=== PATIENT | male | born 1955 | race Caucasian/White ===

== ENCOUNTER 2017-10-16 03:51 | Inpatient (IN) | payer MEDICAID, OTHER ==
[~2017-10-16] VITALS: Ht 175.3 cm; Wt 67.1 kg
[2017-10-16 05:58] LABS: Basophils # (auto) 0.1 uL; Basophils % (auto) 0.7 % (0.0-2.0); Eosinophils # (auto) 0.1 uL; Eosinophils % (auto) 1.6 % (0.0-7.0); Hematocrit 44.1 % (41.0-53.0); Lymphocytes # (auto) 1.3 uL; Lymphocytes % (auto) 17.5 % (10.0-50.0); Mean Corpuscular Hemoglobin 30.7 pg (28.0-32.0); Mean Corpuscular Volume 90.3 fL (80.0-100.0); Monocytes # (auto) 0.7 uL; Monocytes % (auto) 9.2 % (0.0-12.0); Neutrophils # (auto) 5.4 uL; Nucleated Red Blood Cells % 0.1 %; Platelet Count (auto) 153 10^3/uL (140-450); Red Blood Cells 4.88 10^6/uL (4.5-5.90); Red Cell Distribution Width 13.9 % (11.8-14.3); White Blood Cell 7.6 10^3/uL (4.4-10.8)
[2017-10-16 06:51] LABS: Albumin 3.5 g/dL (3.4-5.0); BUN/Creatinine Ratio 28.9; Bilirubin, Total 0.6 mg/dL (0.2-1.0); Calcium 8.6 mg/dL (8.5-10.1); Magnesium 2.1 mg/dL (1.6-2.6); Potassium 4.2 mmol/L (3.5-5.1); Total Protein 6.9 g/dL (6.4-8.2)
[2017-10-16] MEDS ORDERED: HEPARIN SODIUM (PORCINE) 5000 UNITS/ML 1ML VIAL IV ONE (07:15)
[2017-10-16] MEDS ORDERED: NITROGLYCERIN 0.4 MG SL TAB SL ONE (07:15)
[2017-10-16] MEDS ORDERED: HEPARIN SODIUM (PORCINE) 5000 UNITS/ML 1ML VIAL ONE ×2 (07:20→07:21)
[2017-10-16] MEDS ORDERED: MORPHINE SULF INJ 2 MG/ML SYRINGE 1ML IV PRN ×2 (09:30)
[2017-10-16] MEDS ORDERED: TEMAZEPAM 15 MG CAP PO PRN (09:30)
[2017-10-16] MEDS ORDERED: NITROGLYCERIN 0.4 MG SL TAB SL PRN (09:30)
[2017-10-16] MEDS ORDERED: LORazepam 0.5 MG TAB PO PRN (09:30)
[2017-10-16] MEDS ORDERED: HYDROcodone-ACET 5/325MG TAB PO PRN (09:30)
[2017-10-16] MEDS ORDERED: ACETAMINOPHEN 500 MG TAB PO PRN (09:30)
[2017-10-16] MEDS ORDERED: PROMETHAZINE HCL 25 MG/ML 1ML IV PRN (09:30)
[2017-10-16] MEDS ORDERED: LACTULOSE 20Gm/30ML SOLN PO PRN (09:30)
[2017-10-16] MEDS ORDERED: IOHEXOL 350 MG/ML 100ML IJ ONE ×2 (09:47→11:24)
[2017-10-16] MEDS ORDERED: LIDOCAINE 2%HCL (LOCAL ANESTH.) INJ 20ML MDV ONE (09:47)
[2017-10-16 09:58] LABS: INR 1.05 (0.9-1.15); Prothrombin Time 11.4 sec (9.37-12.3)
[2017-10-16] MEDS ORDERED: ENOXAPARIN SOD 80 MG/0.8ML SYRINGE SC SCH (10:00)
[2017-10-16] MEDS ORDERED: ASPirin 81 mg TAB PO SCH (10:00)
[2017-10-16] MEDS ORDERED: NITROGLYCERIN 0.2MG/HR TOPICAL PATCH TD SCH (10:00)
[2017-10-16] MEDS ORDERED: SODIUM CHL 0.9% 0 ML ONE (10:17)
[2017-10-16] MEDS ORDERED: MIDAZOLAM HCL 1MG/1ML-2 ML VIAL ONE (10:17)
[2017-10-16] MEDS ORDERED: ANGIOMAX 250 MG VIAL IV ONE (10:17)
[2017-10-16] MEDS ORDERED: fentaNYL CITRATE 100 MCG/2 ML VL ONE (10:17)
[2017-10-16] MEDS ORDERED: DEXTROSE (50%) 50ML SYRG IV PRN (11:00)
[2017-10-16 11:16] LABS: Urine Bacteria NONE SEEN /hpf (None Seen); Urine Blood Negative /uL (Negative); Urine Mucus FEW (None Seen); Urine Specific Gravity 1.034 (1.001-1.035); Urine WBC 2 /hpf (0 - 3)
[2017-10-16 11:30] LABS: Alcohol, Urine < 3.0 mg/dL (0-5); Amphetamine Screen, Urine NEGATIVE (NEGATIVE); Barbiturate Scree,Urine NEGATIVE (NEGATIVE); Benzodiazephine Screen, Urine NEGATIVE (NEGATIVE); Cannabinoid Screen, Urine NEGATIVE (NEGATIVE); Cocaine Screen, Urine NEGATIVE (NEGATIVE); Opiate Scree,Urine NEGATIVE (NEGATIVE); Phencyclidine Screen, Urine NEGATIVE (NEGATIVE)
[2017-10-16] MEDS ORDERED: AMIODARONE HCL 200 MG TAB PO ONE (12:45)
[2017-10-16] MEDS: InsuLIN REG 1unit/0.01ml Soln (100units/ml) SC SCH ×3 (12:53→22:00)
[2017-10-16] MEDS: ACCU-CHEK COMFORT CURVE STRIP VI SCH ×3 (12:53→22:00)
[2017-10-16] MEDS ORDERED: ASPI325T4 PO (13:59)
[2017-10-16] MEDS ORDERED: ATOR10TA PO (13:59)
[2017-10-16] MEDS ORDERED: ASPirin 325 MG TAB PO ONE (14:30)
[2017-10-16] MEDS: CARVEDILOL 3.125 MG TAB PO SCH ×2 (15:37→22:32)
[2017-10-16] MEDS: FUROSEMIDE 40 MG/4 ML VIAL IV SCH (15:37)
[2017-10-16] MEDS: SODIUM CHLOR 0.9% PF (SALINE LOCK) 10ML VIAL IV SCH ×2 (15:38→22:00)
[2017-10-16] MEDS: POTASSIUM CHL 20 Meq TABLET PO SCH (15:38)
[2017-10-16 20:00] VITALS: BP 97/67
[2017-10-16 22:00] VITALS: BP 97/67
[2017-10-16] MEDS: ATORVASTATIN 20 MG TAB PO SCH (22:18)
[2017-10-16] MEDS: AMIODARONE HCL 200 MG TAB PO SCH (22:18)
[2017-10-16] MEDS: HEPARIN SODIUM (PORCINE) 5000 UNITS/ML 1ML VIAL SC SCH (22:24)
[2017-10-17 05:00] VITALS: BP 95/66
[2017-10-17] MEDS: SODIUM CHLOR 0.9% PF (SALINE LOCK) 10ML VIAL IV SCH ×3 (06:00→21:09)
[2017-10-17] MEDS: ACCU-CHEK COMFORT CURVE STRIP VI SCH ×4 (06:40→21:09)
[2017-10-17] MEDS: HEPARIN SODIUM (PORCINE) 5000 UNITS/ML 1ML VIAL SC SCH ×3 (06:40→14:34)
[2017-10-17] MEDS: InsuLIN REG 1unit/0.01ml Soln (100units/ml) SC SCH ×2 (06:41→11:30)
[2017-10-17 07:04] LABS: Cholesterol 155 mg/dL (< 200); HDL Cholesterol 38 mg/dL (40-59); LDL Cholesterol 106 mg/dL (< 100); Triglycerides 113 mg/dL (< 150)
[2017-10-17 08:07] VITALS: BP 98/68
[2017-10-17 09:00] VITALS: BP 99/74
[2017-10-17] MEDS: AMIODARONE HCL 200 MG TAB PO SCH ×2 (09:28→21:15)
[2017-10-17] MEDS: POTASSIUM CHL 20 Meq TABLET PO SCH (09:28)
[2017-10-17] MEDS: FUROSEMIDE 40 MG/4 ML VIAL IV SCH (10:00)
[2017-10-17] MEDS ORDERED: ASPirin 325 MG TAB PO SCH (10:00)
[2017-10-17] MEDS: CARVEDILOL 3.125 MG TAB PO SCH ×2 (10:00→21:18)
[2017-10-17 13:00] VITALS: BP 88/61
[2017-10-17] MEDS: HEPARIN DRIP/D5W 100UNITS/ML 250 ML IV SCH (15:54)
[2017-10-17] MEDS ORDERED: ATOR40TA52 PO (16:01)
[2017-10-17 16:04] LABS: Basophils # (auto) 0.1 uL; Basophils % (auto) 0.7 % (0.0-2.0); Eosinophils # (auto) 0.2 uL; Hematocrit 42.9 % (41.0-53.0); Hemoglobin 14.6 g/dL (13.5-17.5); Lymphocytes % (auto) 22.2 % (10.0-50.0); Mean Corpuscular Hemoglobin 30.7 pg (28.0-32.0); Mean Corpuscular Volume 90.4 fL (80.0-100.0); Monocytes % (auto) 11.3 % (0.0-12.0); Neutrophils # (auto) 5.6 uL; Neutrophils % (auto) 63.8 % (37.0-80.0); Platelet Count (auto) 148 10^3/uL (140-450); Red Blood Cells 4.75 10^6/uL (4.5-5.90); Red Cell Distribution Width 13.9 % (11.8-14.3); White Blood Cell 8.8 10^3/uL (4.4-10.8)
[2017-10-17 16:11] LABS: INR 1.04 (0.9-1.15); Partial Thromboplastin Time 28.1 sec (22.64-33.71); Prothrombin Time 11.3 sec (9.37-12.3)
[2017-10-17 17:00] VITALS: BP 93/61
[2017-10-17] MEDS: ATORVASTATIN 20 MG TAB PO SCH (21:17)
[2017-10-17 21:30] VITALS: BP 93/64
[2017-10-17 22:29] LABS: INR 1.05 (0.9-1.15); Prothrombin Time 11.4 sec (9.37-12.3)
[2017-10-18 05:00] VITALS: BP 95/63
[2017-10-18 05:40] LABS: Basophils # (auto) 0.1 uL; Basophils % (auto) 0.7 % (0.0-2.0); Eosinophils # (auto) 0.3 uL; Eosinophils % (auto) 2.8 % (0.0-7.0); Hematocrit 41.4 % (41.0-53.0); Hemoglobin 14.4 g/dL (13.5-17.5); Lymphocytes # (auto) 2.3 uL; Lymphocytes % (auto) 23.9 % (10.0-50.0); Mean Corpuscular Hgb Conc. 34.7 g/dL (32.0-36.0); Mean Corpuscular Volume 89.2 fL (80.0-100.0); Monocytes # (auto) 1.1 uL; Monocytes % (auto) 10.8 % (0.0-12.0); Neutrophils # (auto) 6.1 uL; Neutrophils % (auto) 61.8 % (37.0-80.0); Nucleated Red Blood Cells % 0.1 %; Platelet Count (auto) 138 10^3/uL (140-450); Red Blood Cells 4.64 10^6/uL (4.5-5.90); Red Cell Distribution Width 13.9 % (11.8-14.3); White Blood Cell 9.8 10^3/uL (4.4-10.8)
[2017-10-18 05:57] LABS: INR 1.05 (0.9-1.15); Partial Thromboplastin Time 43.3 sec (22.64-33.71); Prothrombin Time 11.4 sec (9.37-12.3)
[2017-10-18] MEDS: SODIUM CHLOR 0.9% PF (SALINE LOCK) 10ML VIAL IV SCH ×3 (06:00→21:39)
[2017-10-18] MEDS: ACCU-CHEK COMFORT CURVE STRIP VI SCH ×2 (06:35→11:30)
[2017-10-18 08:00] VITALS: BP 94/68
[2017-10-18] MEDS: FUROSEMIDE 40 MG/4 ML VIAL IV SCH (09:15)
[2017-10-18] MEDS: CARVEDILOL 3.125 MG TAB PO SCH ×2 (09:16→21:39)
[2017-10-18] MEDS: POTASSIUM CHL 20 Meq TABLET PO SCH (09:17)
[2017-10-18] MEDS: AMIODARONE HCL 200 MG TAB PO SCH ×2 (09:17→21:39)
[2017-10-18 11:53] LABS: INR 1.05 (0.9-1.15); Partial Thromboplastin Time 57.7 sec (22.64-33.71); Prothrombin Time 11.4 sec (9.37-12.3)
[2017-10-18 12:00] VITALS: BP 97/60
[2017-10-18] MEDS: HEPARIN DRIP/D5W 100UNITS/ML 250 ML IV SCH (15:49)
[2017-10-18 17:22] VITALS: BP 96/63
[2017-10-18 21:37] VITALS: BP 88/67
[2017-10-18] MEDS: ATORVASTATIN 20 MG TAB PO SCH (21:47)
[2017-10-18 22:00] VITALS: BP 89/65
[2017-10-19 05:00] VITALS: BP 95/61
[2017-10-19] MEDS: SODIUM CHLOR 0.9% PF (SALINE LOCK) 10ML VIAL IV SCH ×3 (06:00→22:00)
[2017-10-19 06:26] LABS: INR 1.04 (0.9-1.15); Partial Thromboplastin Time 51.5 sec (22.64-33.71); Prothrombin Time 11.3 sec (9.37-12.3)
[2017-10-19 06:34] LABS: Basophils # (auto) 0.1 uL; Basophils % (auto) 0.8 % (0.0-2.0); Eosinophils # (auto) 0.4 uL; Eosinophils % (auto) 3.8 % (0.0-7.0); Hematocrit 41.4 % (41.0-53.0); Hemoglobin 14.3 g/dL (13.5-17.5); Lymphocytes # (auto) 2.6 uL; Lymphocytes % (auto) 27.8 % (10.0-50.0); Mean Corpuscular Hgb Conc. 34.5 g/dL (32.0-36.0); Monocytes # (auto) 0.9 uL; Monocytes % (auto) 9.6 % (0.0-12.0); Neutrophils # (auto) 5.4 uL; Nucleated Red Blood Cells % 0.1 %; Platelet Count (auto) 137 10^3/uL (140-450); Red Blood Cells 4.59 10^6/uL (4.5-5.90); Red Cell Distribution Width 13.6 % (11.8-14.3); White Blood Cell 9.4 10^3/uL (4.4-10.8)
[2017-10-19 06:55] LABS: BUN/Creatinine Ratio 20.2; Calcium 9.1 mg/dL (8.5-10.1); Potassium 4.5 mmol/L (3.5-5.1)
[2017-10-19 09:00] VITALS: BP 94/67
[2017-10-19] MEDS: AMIODARONE HCL 200 MG TAB PO SCH ×2 (10:48→23:19)
[2017-10-19] MEDS: CARVEDILOL 3.125 MG TAB PO SCH ×2 (10:49→22:00)
[2017-10-19 13:00] VITALS: BP 95/65
[2017-10-19 16:58] VITALS: BP 91/66
[2017-10-19] MEDS: HEPARIN DRIP/D5W 100UNITS/ML 250 ML IV SCH (17:10)
[2017-10-19 22:00] VITALS: BP 88/64
[2017-10-19] MEDS: CHLORHEXIDINE 4% TOPICAL soln 473ML TOP SCH (22:00)
[2017-10-19] MEDS: ATORVASTATIN 20 MG TAB PO SCH (23:19)
[2017-10-20 05:00] VITALS: BP 96/63
[2017-10-20] MEDS: SODIUM CHLOR 0.9% PF (SALINE LOCK) 10ML VIAL IV SCH ×3 (06:00→22:00)
[2017-10-20 06:57] LABS: Basophils # (auto) 0.1 uL; Basophils % (auto) 0.8 % (0.0-2.0); Eosinophils # (auto) 0.4 uL; Hematocrit 40.7 % (41.0-53.0); Hemoglobin 13.6 g/dL (13.5-17.5); Lymphocytes % (auto) 22.7 % (10.0-50.0); Mean Corpuscular Hemoglobin 30.4 pg (28.0-32.0); Mean Corpuscular Hgb Conc. 33.4 g/dL (32.0-36.0); Mean Corpuscular Volume 90.9 fL (80.0-100.0); Neutrophils # (auto) 5.5 uL; Neutrophils % (auto) 61.5 % (37.0-80.0); Nucleated Red Blood Cells % 0.1 %; Platelet Count (auto) 147 10^3/uL (140-450); Red Blood Cells 4.48 10^6/uL (4.5-5.90); White Blood Cell 8.9 10^3/uL (4.4-10.8)
[2017-10-20 07:54] LABS: INR 1.03 (0.9-1.15)
[2017-10-20 08:00] VITALS: BP 89/59
[2017-10-20 08:14] VITALS: BP 89/56
[2017-10-20] MEDS: AMIODARONE HCL 200 MG TAB PO SCH (09:37)
[2017-10-20] MEDS: CARVEDILOL 3.125 MG TAB PO SCH ×2 (09:37→22:49)
[2017-10-20] MEDS: CHLORHEXIDINE 4% TOPICAL soln 473ML TOP SCH ×2 (10:07→22:00)
[2017-10-20 13:00] VITALS: BP 95/65
[2017-10-20 16:26] VITALS: BP 84/57
[2017-10-20] MEDS ORDERED: ASCORBIC ACID 500 MG TAB PO ONE (22:00)
[2017-10-20] MEDS: ATORVASTATIN 20 MG TAB PO SCH (22:48)
[2017-10-20 23:23] VITALS: BP 100/53
[2017-10-21] VITALS (11 sets, daily range): BP systolic 85–120; BP diastolic 58–85
[2017-10-21] MEDS ORDERED: CHLORHEXIDINE 4% TOPICAL soln 473ML TOP ONE (01:30)
[2017-10-21] MEDS ORDERED: CHLORHEXIDINE 0.12% ORAL rinse 473ML MT ONE (06:00)
[2017-10-21] MEDS ORDERED: ACCU-CHEK COMFORT CURVE STRIP VI ONE (06:00)
[2017-10-21] MEDS: SODIUM CHLOR 0.9% PF (SALINE LOCK) 10ML VIAL IV SCH ×3 (06:09→22:25)
[2017-10-21 07:01] LABS: Basophils # (auto) 0.1 uL; Basophils % (auto) 0.8 % (0.0-2.0); Eosinophils # (auto) 0.3 uL; Eosinophils % (auto) 3.7 % (0.0-7.0); Hemoglobin 14.6 g/dL (13.5-17.5); Lymphocytes # (auto) 1.5 uL; Lymphocytes % (auto) 18.3 % (10.0-50.0); Mean Corpuscular Hemoglobin 31.1 pg (28.0-32.0); Mean Corpuscular Hgb Conc. 34.7 g/dL (32.0-36.0); Mean Corpuscular Volume 89.8 fL (80.0-100.0); Monocytes # (auto) 0.8 uL; Monocytes % (auto) 9.7 % (0.0-12.0); Neutrophils # (auto) 5.7 uL; Neutrophils % (auto) 67.5 % (37.0-80.0); Platelet Count (auto) 144 10^3/uL (140-450); Red Blood Cells 4.68 10^6/uL (4.5-5.90); Red Cell Distribution Width 13.8 % (11.8-14.3); White Blood Cell 8.4 10^3/uL (4.4-10.8)
[2017-10-21] MEDS ORDERED: ceFAZolin 1GM 2 GM in D5W 5% 50 ML IV ONE (07:30)
[2017-10-21] MEDS ORDERED: VANCOMYCIN 1GM/250ML 250 ML IV ONE (07:30)
[2017-10-21] MEDS ORDERED: NOREPINEPHRINE 8 MG/250ML KIT 250 ML IV ONE (08:30)
[2017-10-21] MEDS ORDERED: PHENYLEPHRINE INJ 20 MG in SODIUM CHL 0.9% 250 ML IV ONE (08:30)
[2017-10-21] MEDS ORDERED: EPINEPHrine HCL 4 MG in D5W 5% 250 ML IV ONE (08:30)
[2017-10-21] MEDS ORDERED: AMINOCAPROIC ACID 5 GM in SODIUM CHL 0.9% 250 ML IV ONE (08:30)
[2017-10-21] MEDS ORDERED: InsuLIN R (HUMAN) 100 UNITS in SODIUM CHL 0.9% 99 ML IV ONE (08:30)
[2017-10-21] MEDS ORDERED: VASOPRESSIN 50 UNITS in SODIUM CHL 0.9% 247.5 ML IV ONE (08:30)
[2017-10-21] MEDS ORDERED: HEPARIN 30000 UNITS in SODIUM CHLORIDE 0.9% 1000 ML IV ONE (08:30)
[2017-10-21] MEDS ORDERED: AMINOCAPROIC ACID 10 GM in SODIUM CHL 0.9% 100 ML IV ONE (08:30)
[2017-10-21] MEDS: CARVEDILOL 3.125 MG TAB PO SCH ×2 (10:00→22:00)
[2017-10-21] MEDS: CHLORHEXIDINE 4% TOPICAL soln 473ML TOP SCH (10:00)
[2017-10-21] MEDS ORDERED: NATT100C PO (15:35)
[2017-10-21] MEDS: ATORVASTATIN 20 MG TAB PO SCH (22:25)
[2017-10-22] VITALS (46 sets, daily range): BP systolic 28–125; BP diastolic 14–77
[2017-10-22] MEDS ORDERED: CHLORHEXIDINE 4% TOPICAL soln 473ML TOP ONE (01:30)
[2017-10-22] MEDS: CHLORHEXIDINE 4% TOPICAL soln 473ML TOP SCH (03:00)
[2017-10-22 04:13] LABS: Basophils # (auto) 0.1 uL; Eosinophils # (auto) 0.3 uL; Eosinophils % (auto) 3.7 % (0.0-7.0); Hematocrit 40.3 % (41.0-53.0); Hemoglobin 13.9 g/dL (13.5-17.5); Lymphocytes % (auto) 24.5 % (10.0-50.0); Mean Corpuscular Hemoglobin 30.8 pg (28.0-32.0); Mean Corpuscular Hgb Conc. 34.3 g/dL (32.0-36.0); Mean Corpuscular Volume 89.7 fL (80.0-100.0); Monocytes # (auto) 0.9 uL; Monocytes % (auto) 10.6 % (0.0-12.0); Neutrophils # (auto) 4.9 uL; Neutrophils % (auto) 60.2 % (37.0-80.0); Nucleated Red Blood Cells % 0.2 %; Platelet Count (auto) 147 10^3/uL (140-450); Red Cell Distribution Width 13.8 % (11.8-14.3); White Blood Cell 8.1 10^3/uL (4.4-10.8)
[2017-10-22 04:30] LABS: INR 1.07 (0.9-1.15); Partial Thromboplastin Time 29.7 sec (22.64-33.71); Prothrombin Time 11.7 sec (9.37-12.3)
[2017-10-22] MEDS ORDERED: NEOMYCIN-BACITRACIN-POLYM 15GM TOP OINT TOP ONE (04:59)
[2017-10-22] MEDS ORDERED: HEPARIN 1,000 UNITS/ml 1ML VIAL ONE (05:00)
[2017-10-22] MEDS ORDERED: BACITRACIN INJ 50000 UNIT VIAL ONE (05:00)
[2017-10-22] MEDS ORDERED: PAPAVERINE HCL 60 MG/2 ML 2ML VIAL ONE (05:00)
[2017-10-22] MEDS ORDERED: ceFAZolin 1GM/50ML 50 ML IV ONE ×2 (05:06→05:15)
[2017-10-22] MEDS ORDERED: VANCOMYCIN 1GM/250ML 250 ML IV ONE (05:15)
[2017-10-22] MEDS ORDERED: PROPOFOL 100 ML IV ONE (05:24)
[2017-10-22] MEDS ORDERED: NITROGLYCERIN 50MG/250ML 250 ML IV ONE (05:24)
[2017-10-22] MEDS ORDERED: DOPamine 1600MCG/ML D5W 250 ML IV ONE (05:25)
[2017-10-22 05:39] LABS: Albumin 3.6 g/dL (3.4-5.0); BUN/Creatinine Ratio 20.5; Bilirubin, Total 0.5 mg/dL (0.2-1.0); Calcium 8.7 mg/dL (8.5-10.1); Potassium 4.5 mmol/L (3.5-5.1); Total Protein 7.3 g/dL (6.4-8.2)
[2017-10-22] MEDS ORDERED: ALBUMIN 25% 400 ML IV ONE (06:00)
[2017-10-22] MEDS ORDERED: CHLORHEXIDINE 0.12% ORAL rinse 473ML MT ONE (06:00)
[2017-10-22] MEDS ORDERED: ROCURONIUM 10MG/ML 10ML VIAL IV ONE ×2 (06:01→08:49)
[2017-10-22] MEDS ORDERED: MIDAZOLAM HCL 1MG/1ML-2 ML VIAL ONE ×2 (06:14→13:26)
[2017-10-22] MEDS ORDERED: HYDROmorphone HCL 2 MG/ML VL ONE ×2 (06:14→13:25)
[2017-10-22] MEDS ORDERED: D5W 5% IV ONE (07:00)
[2017-10-22] MEDS ORDERED: PHENYLEPHRINE INJ 20 MG in D5W 5% 250 ML IV ONE (07:00)
[2017-10-22] MEDS ORDERED: VASOPRESSIN IV ONE (07:00)
[2017-10-22] MEDS ORDERED: AMINOCAPROIC ACID 5 GM in SODIUM CHL 0.9% 250 ML IV ONE (07:00)
[2017-10-22] MEDS ORDERED: EPINEPHrine HCL 4 MG in D5W 5% 250 ML IV ONE (07:30)
[2017-10-22] MEDS ORDERED: InsuLIN R (HUMAN) 100 UNITS in SODIUM CHL 0.9% 99 ML IV ONE (07:30)
[2017-10-22] MEDS ORDERED: NOREPINEPHRINE 8 MG/250ML KIT 250 ML IV ONE ×2 (07:30→14:15)
[2017-10-22] MEDS ORDERED: HEPARIN 30000 UNITS in SODIUM CHLORIDE 0.9% 1000 ML IV ONE (07:30)
[2017-10-22] MEDS ORDERED: AMINOCAPROIC ACID 10 GM in SODIUM CHL 0.9% 100 ML IV ONE (07:30)
[2017-10-22] MEDS ORDERED: SODIUM BICARBONATE 8.4% INJ 50ML SYRINGE ONE (08:19)
[2017-10-22] MEDS ORDERED: [UNRECOGNIZED DRUG - OTHER] INJ ONE (10:50)
[2017-10-22] MEDS ORDERED: PHENYLEPHRINE HCL 10 MG/ML VL IV ONE (12:18)
[2017-10-22] MEDS ORDERED: FUROSEMIDE 20 MG/2 ML VIAL IV ONE (12:18)
[2017-10-22] MEDS ORDERED: MAGNESIUM SULF 50% 40 MEQ/10 ML VL IV ONE (12:18)
[2017-10-22] MEDS ORDERED: MANNITOL 20% SOLN 100 gm/500ml BAG IV ONE (12:18)
[2017-10-22] MEDS ORDERED: DEXAMETHASONE SODIUM PHOSP 120 MG/30ml VIAL IV ONE (12:18)
[2017-10-22] MEDS ORDERED: ADENOSINE 6 MG/2 ML INJ IV ONE (12:18)
[2017-10-22] MEDS ORDERED: LIDOCAINE HCL 100 MG/5ML (2%) SYRG INJ IV ONE (12:18)
[2017-10-22] MEDS ORDERED: POTASSIUM CHL 2MEQ/ML 20ML IV ONE (12:18)
[2017-10-22] MEDS ORDERED: AMINOCAPROIC ACID 5 GM/20 ML VL IV ONE (12:18)
[2017-10-22] MEDS ORDERED: HEPARIN SODIUM (PORCINE) 5000 UNITS/ML 1ML VIAL SC ONE (12:18)
[2017-10-22] MEDS ORDERED: CALCIUM CHLOR(10%) 100MG/ML 10ML SYRINGE IV ONE ×3 (12:18→14:03)
[2017-10-22] MEDS ORDERED: SODIUM BICARBONATE 8.4 % INJ 50ML VIAL IV ONE (12:18)
[2017-10-22] MEDS ORDERED: PROTAMINE SULFATE 250 MG/25 ML VL IV ONE (13:33)
[2017-10-22] MEDS ORDERED: MILRINONE 20 ML ONE (13:33)
[2017-10-22] MEDS ORDERED: PROPOFOL 10 MG/ML 20 ML IV ONE (13:33)
[2017-10-22] MEDS ORDERED: PROTAMINE SULFATE 10 MG/ML 5ML VIAL IV ONE ×2 (15:08→15:24)
[2017-10-22] MEDS ORDERED: phytonadione 2 ML ONE (15:32)
[2017-10-22] MEDS ORDERED: PROPOFOL 200 ML IV ONE (15:51)
[2017-10-22] MEDS ORDERED: COAGULATION FACTOR VIIA (RECOM 2 MG INJ IV ONE (16:00)
[2017-10-22 16:06] LABS: INR 1.9 (0.9-1.15); Partial Thromboplastin Time 64.6 sec (22.64-33.71); Prothrombin Time 20.8 sec (9.37-12.3)
[2017-10-22 16:14] LABS: Albumin 3.5 g/dL (3.4-5.0); BUN/Creatinine Ratio 11.9; Calcium 10.8 mg/dL (8.5-10.1); Potassium 5.1 mmol/L (3.5-5.1)
[2017-10-22 16:17] LABS: Bilirubin, Total 1.4 mg/dL (0.2-1.0); Total Protein 5.7 g/dL (6.4-8.2)
[2017-10-22 16:25] LABS: Basophils # (auto) 0 uL; Basophils % (auto) 0.2 % (0.0-2.0); Eosinophils # (auto) 0.1 uL; Eosinophils % (auto) 0.4 % (0.0-7.0); Hematocrit 26.7 % (41.0-53.0); Lymphocytes # (auto) 1.1 uL; Lymphocytes % (auto) 8.4 % (10.0-50.0); Mean Corpuscular Hemoglobin 30.5 pg (28.0-32.0); Mean Corpuscular Hgb Conc. 33.9 g/dL (32.0-36.0); Monocytes # (auto) 0.6 uL; Monocytes % (auto) 4.1 % (0.0-12.0); Neutrophils # (auto) 11.8 uL; Neutrophils % (auto) 86.9 % (37.0-80.0); Platelet Count (auto) 89 10^3/uL (140-450); Red Blood Cells 2.96 10^6/uL (4.5-5.90); Red Cell Distribution Width 13.5 % (11.8-14.3); White Blood Cell 13.6 10^3/uL (4.4-10.8)
[2017-10-22] MEDS ORDERED: INSULIN DRIP 100 UNIT/100ML 100 ML IV SCH (18:23)
[2017-10-22] MEDS ORDERED: NITROGLYCERIN 50MG/250ML 250 ML IV SCH (18:24)
[2017-10-22] MEDS ORDERED: ALBUMIN 5% 250 ML IV PRN (18:30)
[2017-10-22] MEDS ORDERED: AMIODARONE HCL 150 MG in D5W 5% 100 ML IV ONE (18:30)
[2017-10-22] MEDS ORDERED: MAGNESIUM SULFATE 1GM/100ML 100 ML IV PRN (18:30)
[2017-10-22] MEDS ORDERED: DEXTROSE (50%) 50ML SYRG IV PRN (18:30)
[2017-10-22] MEDS ORDERED: MORPHINE SULF INJ 2 MG/ML SYRINGE 1ML IV PRN (18:30)
[2017-10-22] MEDS ORDERED: ONDANSETRON HCL 4 MG/2 ML VIAL IV PRN (18:30)
[2017-10-22] MEDS ORDERED: METOCLOPRAMIDE HCL 5MG/ml INJ 2ml VIAL IV PRN (18:30)
[2017-10-22] MEDS ORDERED: SODIUM BICARBONATE 8.4% INJ 50ML SYRINGE IV PRN (18:30)
[2017-10-22] MEDS ORDERED: MORPHINE SULFATE 10 MG/ML INJ 1ML SDV IV PRN ×2 (18:30)
[2017-10-22] MEDS ORDERED: ZOLPIDEM TARTRATE 5 MG TAB PO PRN (18:30)
[2017-10-22 18:39] LABS: Hemoglobin 10.4 g/dL (13.5-17.5)
[2017-10-22 18:41] LABS: Hematocrit 29.8 % (41.0-53.0); Mean Corpuscular Hemoglobin 30.8 pg (28.0-32.0); Mean Corpuscular Hgb Conc. 34.8 g/dL (32.0-36.0); Mean Corpuscular Volume 88.5 fL (80.0-100.0); Platelet Count (auto) 54 10^3/uL (140-450); Red Blood Cells 3.37 10^6/uL (4.5-5.90); Red Cell Distribution Width 13.9 % (11.8-14.3); White Blood Cell 11.9 10^3/uL (4.4-10.8)
[2017-10-22] MEDS ORDERED: AMIODARONE HCL 900 MG in DEXTROSE 500 ML IV SCH (18:45)
[2017-10-22] MEDS ORDERED: FUROSEMIDE 20 MG/2 ML VIAL IV PRN (18:45)
[2017-10-22 18:49] LABS: Band Neutrophils % (manual) 0; Basophils % (manual) 0 (0.0-2.0); Blast Cells 0; Eosinophils % (manual) 0 (0-7); Metamyelocytes % 0; Myelocytes % 0; Promyelocytes % 0; Reactive Lymphocytes 0
[2017-10-22 18:50] LABS: INR 1.04 (0.9-1.15); Partial Thromboplastin Time 31.8 sec (22.64-33.71); Prothrombin Time 11.3 sec (9.37-12.3)
[2017-10-22 18:57] LABS: Calcium 10.8 mg/dL (8.5-10.1); Potassium 4.6 mmol/L (3.5-5.1)
[2017-10-22 19:00] LABS: BUN/Creatinine Ratio 11.3; Total Protein 5.8 g/dL (6.4-8.2)
[2017-10-22] MEDS: ACCU-CHEK COMFORT CURVE STRIP VI SCH ×6 (19:00→23:57)
[2017-10-22 19:02] LABS: Bilirubin, Total 2.1 mg/dL (0.2-1.0)
[2017-10-22 19:39] LABS: Lymphocytes % (manual) 8 (10.0-50.0); Monocytes % (manual) 11 (0-12)
[2017-10-22] MEDS ORDERED: FUROSEMIDE INJECTION 100 MG in D5W 5% 90 ML IV SCH (19:45)
[2017-10-22] MEDS: VANCOMYCIN 1GM/250ML 250 ML IV SCH (20:00)
[2017-10-22] MEDS ORDERED: ALBUMIN 25% 100 ML IV ONE ×2 (20:11→20:30)
[2017-10-22] MEDS: VASOPRESSIN 50 UNITS in D5W 5% 247.5 ML IV SCH (20:23)
[2017-10-22] MEDS: PROPOFOL 100 ML IV SCH (20:23)
[2017-10-22] MEDS: NOREPINEPHRINE 8 MG/250ML KIT 250 ML IV SCH (20:23)
[2017-10-22] MEDS: NICARDIPINE 25MG/250ML BAG KIT 250 ML IV SCH ×2 (20:24→23:24)
[2017-10-22] MEDS: MILRINONE 20MG/100ML 100 ML IV SCH (20:24)
[2017-10-22] MEDS: SODIUM CHLORIDE 0.9% 500 ML IV SCH (20:25)
[2017-10-22] MEDS: SODIUM CHLORIDE 0.9% 1,000 ML IV SCH (20:25)
[2017-10-22] MEDS ORDERED: ALBUMIN 5% 250 ML IV ONE (20:30)
[2017-10-22] MEDS ORDERED: CALCIUM GLUC 4.65meq/50ml D5AE 50 ML IV ONE (20:45)
[2017-10-22] MEDS: ceFAZolin 1GM/50ML 50 ML IV SCH (21:00)
[2017-10-22 21:21] LABS: Basophils # (auto) 0 uL; Basophils % (auto) 0.1 % (0.0-2.0); Eosinophils # (auto) 0 uL; Lymphocytes # (auto) 0.7 uL; Lymphocytes % (auto) 5.1 % (10.0-50.0); Monocytes # (auto) 1.4 uL; Neutrophils % (auto) 85.1 % (37.0-80.0); Nucleated Red Blood Cells % 0.1 %
[2017-10-22 21:22] LABS: Eosinophils % (auto) 0.1 % (0.0-7.0); Hematocrit 31.6 % (41.0-53.0); Mean Corpuscular Hemoglobin 30.9 pg (28.0-32.0); Mean Corpuscular Hgb Conc. 34.7 g/dL (32.0-36.0); Monocytes % (auto) 9.6 % (0.0-12.0); Neutrophils # (auto) 12.2 uL; Platelet Count (auto) 48 10^3/uL (140-450); Red Blood Cells 3.55 10^6/uL (4.5-5.90); Red Cell Distribution Width 14.1 % (11.8-14.3); White Blood Cell 14.4 10^3/uL (4.4-10.8)
[2017-10-22] MEDS: CALCIUM GLUC 4.65meq/50ml D5AE 50 ML IV PRN (21:32)
[2017-10-22] MEDS: CHLORHEXIDINE 0.12% ORAL rinse 473ML MT SCH (22:00)
[2017-10-22] MEDS: AMIODARONE HCL 900 MG in DEXTROSE 500 ML IV SCH (23:54)
[2017-10-23] VITALS (114 sets, daily range): BP systolic 28–133; BP diastolic 13–65
[2017-10-23] MEDS ORDERED: InsuLIN REG 1unit/0.01ml Soln (100units/ml) ONE (00:19)
[2017-10-23] MEDS: ACCU-CHEK COMFORT CURVE STRIP VI SCH ×22 (00:46→23:00)
[2017-10-23 01:26] LABS: BUN/Creatinine Ratio 11.8; Calcium 9.6 mg/dL (8.5-10.1); Potassium 4.6 mmol/L (3.5-5.1)
[2017-10-23 01:39] LABS: Lymphocytes % (auto) 4.8 % (10.0-50.0); Monocytes % (auto) 8.3 % (0.0-12.0); Neutrophils % (auto) 86.9 % (37.0-80.0); White Blood Cell 13.6 10^3/uL (4.4-10.8)
[2017-10-23 01:40] LABS: Basophils # (auto) 0 uL; Eosinophils # (auto) 0 uL; Hematocrit 28.1 % (41.0-53.0); Hemoglobin 9.6 g/dL (13.5-17.5); Lymphocytes # (auto) 0.7 uL; Mean Corpuscular Hemoglobin 30.3 pg (28.0-32.0); Mean Corpuscular Hgb Conc. 34.3 g/dL (32.0-36.0); Mean Corpuscular Volume 88.3 fL (80.0-100.0); Monocytes # (auto) 1.1 uL; Neutrophils # (auto) 11.8 uL; Platelet Count (auto) 77 10^3/uL (140-450); Red Blood Cells 3.18 10^6/uL (4.5-5.90); Red Cell Distribution Width 13.6 % (11.8-14.3)
[2017-10-23 02:06] LABS: Phosphorus 1.5 mg/dL (2.5-4.90)
[2017-10-23] MEDS: ceFAZolin 1GM/50ML 50 ML IV SCH ×3 (02:30→18:35)
[2017-10-23] MEDS: NICARDIPINE 25MG/250ML BAG KIT 250 ML IV SCH ×4 (04:24→19:24)
[2017-10-23] MEDS: SODIUM CHLORIDE 0.9% 1,000 ML IV SCH (04:24)
[2017-10-23 04:51] LABS: Basophils # (auto) 0 uL; Basophils % (auto) 0.2 % (0.0-2.0); Eosinophils # (auto) 0 uL; Hematocrit 27.7 % (41.0-53.0); Hemoglobin 9.7 g/dL (13.5-17.5); Lymphocytes # (auto) 0.6 uL; Mean Corpuscular Hemoglobin 30.7 pg (28.0-32.0); Mean Corpuscular Hgb Conc. 35.1 g/dL (32.0-36.0); Mean Corpuscular Volume 87.4 fL (80.0-100.0); Monocytes # (auto) 0.9 uL; Monocytes % (auto) 7.3 % (0.0-12.0); Neutrophils % (auto) 87.5 % (37.0-80.0); Platelet Count (auto) 67 10^3/uL (140-450); Red Blood Cells 3.17 10^6/uL (4.5-5.90); Red Cell Distribution Width 13.9 % (11.8-14.3); White Blood Cell 12.6 10^3/uL (4.4-10.8)
[2017-10-23 05:11] LABS: BUN/Creatinine Ratio 12.9; Calcium 9.2 mg/dL (8.5-10.1); Potassium 4.4 mmol/L (3.5-5.1)
[2017-10-23] MEDS: IPRATROPIUM BROM 0.5 MG/2.5ML INH SOL NEB SCH ×5 (05:53→22:27)
[2017-10-23] MEDS: ACETYLCYSTEINE 10 %(100MG/ML) SOL 4ML NEB SCH ×3 (05:53→22:27)
[2017-10-23] MEDS: VANCOMYCIN 1GM/250ML 250 ML IV SCH (08:29)
[2017-10-23] MEDS: MILRINONE 20MG/100ML 100 ML IV SCH ×2 (10:10→20:06)
[2017-10-23] MEDS: PANTOPRAZOLE 40 MG/10 ML VIAL IV SCH (10:10)
[2017-10-23] MEDS: CHLORHEXIDINE 0.12% ORAL rinse 473ML MT SCH ×2 (10:11→22:00)
[2017-10-23] MEDS: PROPOFOL 100 ML IV SCH (10:11)
[2017-10-23] MEDS: FUROSEMIDE INJECTION 100 MG in D5W 5% 90 ML IV SCH (10:37)
[2017-10-23 10:40] LABS: BUN/Creatinine Ratio 12.7; Calcium 8.7 mg/dL (8.5-10.1); Magnesium 3.1 mg/dL (1.6-2.6); Phosphorus 1.9 mg/dL (2.5-4.90); Potassium 3.9 mmol/L (3.5-5.1)
[2017-10-23] MEDS: POTASSIUM CHL 20MEQ/50ML 50 ML IV PRN (11:09)
[2017-10-23] MEDS ORDERED: ALBUMIN 25% 100 ML IV ONE ×2 (12:00)
[2017-10-23] MEDS: SOD CHL 0.45% 1,000 ML IV SCH (12:08)
[2017-10-23] MEDS ORDERED: POTASSIUM PHOSPHATE 22 MEQ in SODIUM CHL 0.9% 100 ML IV ONE (12:30)
[2017-10-23] MEDS: fentaNYL CITRATE 100 MCG/2 ML VL IV PRN ×2 (15:18→18:22)
[2017-10-23 17:02] LABS: Creatinine, Urine 74 mg/dL (30.0-125.0); Sodium Urine 17 mmol/L (40-220)
[2017-10-23] MEDS: NOREPINEPHRINE 8 MG/250ML KIT 250 ML IV SCH (17:17)
[2017-10-23] MEDS: VASOPRESSIN 50 UNITS in D5W 5% 247.5 ML IV SCH (18:24)
[2017-10-23] MEDS ORDERED: INSULIN DRIP 100 UNIT/100ML 100 ML IV SCH (18:28)
[2017-10-23] MEDS: SODIUM CHLORIDE 0.9% 500 ML IV SCH (18:28)
[2017-10-23] MEDS ORDERED: DEXTROSE (50%) 50ML SYRG IV PRN (18:30)
[2017-10-23 18:47] LABS: BUN/Creatinine Ratio 11.7; Basophils # (auto) 0 uL; Calcium 8.7 mg/dL (8.5-10.1); Eosinophils # (auto) 0 uL; Magnesium 3.1 mg/dL (1.6-2.6); Mean Corpuscular Volume 88.8 fL (80.0-100.0); Monocytes # (auto) 1.4 uL; Phosphorus 3.3 mg/dL (2.5-4.90); Potassium 4.3 mmol/L (3.5-5.1)
[2017-10-23 18:50] LABS: Basophils % (auto) 0.1 % (0.0-2.0); Lymphocytes % (auto) 5.9 % (10.0-50.0); Mean Corpuscular Hemoglobin 30.6 pg (28.0-32.0); Mean Corpuscular Hgb Conc. 34.4 g/dL (32.0-36.0); Monocytes % (auto) 8.3 % (0.0-12.0); Neutrophils # (auto) 14.7 uL; Neutrophils % (auto) 85.7 % (37.0-80.0); Nucleated Red Blood Cells % 0.1 %; Platelet Count (auto) 51 10^3/uL (140-450); Red Blood Cells 3.27 10^6/uL (4.5-5.90); Red Cell Distribution Width 14.4 % (11.8-14.3); White Blood Cell 17.1 10^3/uL (4.4-10.8)
[2017-10-23] MEDS: PROPRANOLOL HCL 1 MG/ML VIAL IV PRN (22:21)
[2017-10-24] VITALS (104 sets, daily range): BP systolic 28–167; BP diastolic 16–86
[2017-10-24] MEDS: NICARDIPINE 25MG/250ML BAG KIT 250 ML IV SCH ×6 (00:24→23:03)
[2017-10-24] MEDS: AMIODARONE HCL 900 MG in DEXTROSE 500 ML IV SCH ×2 (00:45→22:13)
[2017-10-24] MEDS: ACCU-CHEK COMFORT CURVE STRIP VI SCH ×19 (01:00→18:26)
[2017-10-24] MEDS: fentaNYL CITRATE 100 MCG/2 ML VL IV PRN ×4 (01:12→16:44)
[2017-10-24 02:10] LABS: Nucleated Red Blood Cells % 0.1 %; Platelet Count (auto) 49 10^3/uL (140-450)
[2017-10-24 02:12] LABS: Basophils # (auto) 0 uL; Basophils % (auto) 0.4 % (0.0-2.0); Eosinophils # (auto) 0 uL; Lymphocytes # (auto) 0.9 uL; Lymphocytes % (auto) 6.6 % (10.0-50.0); Mean Corpuscular Hemoglobin 30.6 pg (28.0-32.0); Mean Corpuscular Hgb Conc. 34.5 g/dL (32.0-36.0); Mean Corpuscular Volume 88.5 fL (80.0-100.0); Monocytes % (auto) 7.1 % (0.0-12.0); Neutrophils # (auto) 11.6 uL; Neutrophils % (auto) 85.9 % (37.0-80.0); Red Blood Cells 3.27 10^6/uL (4.5-5.90); Red Cell Distribution Width 14.5 % (11.8-14.3); White Blood Cell 13.4 10^3/uL (4.4-10.8)
[2017-10-24] MEDS ORDERED: PHENYTOIN SODIUM 50 MG/ML 5ML INJ VIAL IV ONE (02:24)
[2017-10-24 02:37] LABS: Calcium 8.4 mg/dL (8.5-10.1); Potassium 4.2 mmol/L (3.5-5.1)
[2017-10-24 02:39] LABS: BUN/Creatinine Ratio 11.3
[2017-10-24 02:42] LABS: Total Protein 6.1 g/dL (6.4-8.2)
[2017-10-24] MEDS: ceFAZolin 1GM/50ML 50 ML IV SCH ×2 (02:45→10:21)
[2017-10-24] MEDS: SOD CHL 0.45% 1,000 ML IV SCH ×3 (02:47→18:00)
[2017-10-24] MEDS: PROPOFOL 100 ML IV SCH ×4 (02:57→17:25)
[2017-10-24] MEDS: MILRINONE 20MG/100ML 100 ML IV SCH ×2 (02:58→21:44)
[2017-10-24] MEDS: IPRATROPIUM BROM 0.5 MG/2.5ML INH SOL NEB SCH ×6 (02:59→22:02)
[2017-10-24] MEDS: ACETAMINOPHEN 325 MG TAB PO PRN ×2 (03:04→16:44)
[2017-10-24] MEDS: PROPRANOLOL HCL 1 MG/ML VIAL IV PRN (05:08)
[2017-10-24] MEDS: ACETYLCYSTEINE 10 %(100MG/ML) SOL 4ML NEB SCH ×3 (05:49→22:02)
[2017-10-24] MEDS: DOPamine 1600MCG/ML D5W 250 ML IV SCH (09:26)
[2017-10-24] MEDS: CHLORHEXIDINE 0.12% ORAL rinse 473ML MT SCH ×2 (10:11→21:38)
[2017-10-24] MEDS: PANTOPRAZOLE 40 MG/10 ML VIAL IV SCH (10:12)
[2017-10-24 10:23] LABS: Eosinophils # (auto) 0 uL; Hemoglobin 9.6 g/dL (13.5-17.5); Lymphocytes # (auto) 0.6 uL; Red Cell Distribution Width 14.4 % (11.8-14.3)
[2017-10-24 10:26] LABS: Basophils # (auto) 0 uL; Basophils % (auto) 0.2 % (0.0-2.0); Lymphocytes % (auto) 4.5 % (10.0-50.0); Mean Corpuscular Hemoglobin 30.7 pg (28.0-32.0); Mean Corpuscular Hgb Conc. 34.4 g/dL (32.0-36.0); Mean Corpuscular Volume 89.2 fL (80.0-100.0); Monocytes # (auto) 0.9 uL; Monocytes % (auto) 6.3 % (0.0-12.0); Neutrophils # (auto) 12.5 uL; Nucleated Red Blood Cells % 0.2 %; Platelet Count (auto) 43 10^3/uL (140-450); Red Blood Cells 3.14 10^6/uL (4.5-5.90)
[2017-10-24 10:57] LABS: Albumin 3.7 g/dL (3.4-5.0); BUN/Creatinine Ratio 13.8; Bilirubin, Total 1.1 mg/dL (0.2-1.0); Calcium 8.1 mg/dL (8.5-10.1); Magnesium 2.6 mg/dL (1.6-2.6); Potassium 4.3 mmol/L (3.5-5.1); Total Protein 5.8 g/dL (6.4-8.2)
[2017-10-24] MEDS: FUROSEMIDE INJECTION 100 MG in D5W 5% 90 ML IV SCH (11:21)
[2017-10-24] MEDS ORDERED: CALCIUM GLUC 4.65meq/50ml D5AE 50 ML IV ONE (11:30)
[2017-10-24 16:42] LABS: BUN/Creatinine Ratio 15.3; Potassium 3.9 mmol/L (3.5-5.1)
[2017-10-24] MEDS: CALCIUM GLUC 4.65meq/50ml D5AE 50 ML IV PRN (17:03)
[2017-10-24] MEDS: POTASSIUM CHL 20MEQ/50ML 50 ML IV PRN (17:24)
[2017-10-24] MEDS: SODIUM CHLORIDE 0.9% 500 ML IV SCH ×2 (18:24→20:15)
[2017-10-24] MEDS: NOREPINEPHRINE 8 MG/250ML KIT 250 ML IV SCH (18:24)
[2017-10-24] MEDS: VASOPRESSIN 50 UNITS in D5W 5% 247.5 ML IV SCH (18:24)
[2017-10-24] MEDS ORDERED: ALBUMIN 25% 100 ML IV ONE ×2 (18:30→18:45)
[2017-10-24 19:06] LABS: Basophils # (auto) 0 uL; Basophils % (auto) 0.1 % (0.0-2.0); Eosinophils # (auto) 0 uL; Lymphocytes # (auto) 0.8 uL; Mean Corpuscular Hemoglobin 31.2 pg (28.0-32.0); Monocytes # (auto) 0.7 uL; Neutrophils # (auto) 9.8 uL; Nucleated Red Blood Cells % 0.1 %; Red Blood Cells 2.87 10^6/uL (4.5-5.90)
[2017-10-24 19:08] LABS: Hematocrit 25.8 % (41.0-53.0); Hemoglobin 8.9 g/dL (13.5-17.5); Mean Corpuscular Hgb Conc. 34.7 g/dL (32.0-36.0); Mean Corpuscular Volume 90.1 fL (80.0-100.0); Monocytes % (auto) 5.9 % (0.0-12.0); Platelet Count (auto) 34 10^3/uL (140-450); Red Cell Distribution Width 14.1 % (11.8-14.3); White Blood Cell 11.3 10^3/uL (4.4-10.8)
[2017-10-24] MEDS ORDERED: SODIUM CHL 0.9% IV ONE (20:15)
[2017-10-24] MEDS ORDERED: DESMOPRESSIN IV ONE (20:15)
[2017-10-24] MEDS: FAMOTIDINE (10MG/ML) 2ML VL IV SCH (21:37)
[2017-10-24 23:40] LABS: Albumin 3.5 g/dL (3.4-5.0); Magnesium 2.8 mg/dL (1.6-2.6); Potassium 3.8 mmol/L (3.5-5.1)
[2017-10-24 23:43] LABS: Total Protein 5.6 g/dL (6.4-8.2)
[2017-10-25] VITALS (104 sets, daily range): BP systolic 27–170; BP diastolic 12–146
[2017-10-25] MEDS ORDERED: POTASSIUM CHL 20MEQ/50ML 100 ML IV ONE (00:23)
[2017-10-25] MEDS: POTASSIUM CHL 20MEQ/50ML 50 ML IV SCH ×5 (00:33→22:35)
[2017-10-25] MEDS: fentaNYL CITRATE 100 MCG/2 ML VL IV PRN ×5 (00:42→23:16)
[2017-10-25] MEDS: SODIUM CHLORIDE 0.9% 500 ML IV SCH ×4 (01:15→14:25)
[2017-10-25] MEDS: IPRATROPIUM BROM 0.5 MG/2.5ML INH SOL NEB SCH ×6 (02:04→22:18)
[2017-10-25] MEDS: PROPOFOL 100 ML IV SCH ×2 (02:30→23:16)
[2017-10-25] MEDS: ACETAMINOPHEN 325 MG TAB PO PRN ×4 (02:30→23:16)
[2017-10-25] MEDS: NICARDIPINE 25MG/250ML BAG KIT 250 ML IV SCH ×4 (04:41→19:14)
[2017-10-25 04:52] LABS: Basophils # (auto) 0 uL; Basophils % (auto) 0.3 % (0.0-2.0); Eosinophils # (auto) 0 uL; Lymphocytes # (auto) 0.7 uL; Red Blood Cells 3.08 10^6/uL (4.5-5.90)
[2017-10-25 04:54] LABS: Hematocrit 27.7 % (41.0-53.0); Hemoglobin 9.4 g/dL (13.5-17.5); Lymphocytes % (auto) 7.2 % (10.0-50.0); Mean Corpuscular Hemoglobin 30.6 pg (28.0-32.0); Mean Corpuscular Hgb Conc. 34.1 g/dL (32.0-36.0); Mean Corpuscular Volume 89.9 fL (80.0-100.0); Monocytes # (auto) 0.5 uL; Neutrophils # (auto) 8.2 uL; Neutrophils % (auto) 87.5 % (37.0-80.0); Nucleated Red Blood Cells % 0.1 %; Platelet Count (auto) 62 10^3/uL (140-450); Red Cell Distribution Width 14.1 % (11.8-14.3); White Blood Cell 9.3 10^3/uL (4.4-10.8)
[2017-10-25] MEDS ORDERED: ALBUMIN 25% 100 ML IV ONE (05:00)
[2017-10-25 05:10] LABS: Albumin 3.4 g/dL (3.4-5.0); BUN/Creatinine Ratio 19.4; Calcium 7.8 mg/dL (8.5-10.1); Magnesium 2.7 mg/dL (1.6-2.6); Potassium 4.2 mmol/L (3.5-5.1)
[2017-10-25 05:18] LABS: Bilirubin, Total 1.2 mg/dL (0.2-1.0); Total Protein 5.7 g/dL (6.4-8.2)
[2017-10-25] MEDS: ACETYLCYSTEINE 10 %(100MG/ML) SOL 4ML NEB SCH ×3 (06:06→22:18)
[2017-10-25] MEDS ORDERED: SODIUM CHLORIDE 0.9% 1,000 ML IV SCH (08:15)
[2017-10-25] MEDS: MORPHINE SULF INJ 2 MG/ML SYRINGE 1ML IV PRN (08:15)
[2017-10-25] MEDS ORDERED: FUROSEMIDE INJECTION 100 MG in D5W 5% 90 ML IV SCH (08:15)
[2017-10-25 10:30] LABS: Basophils # (auto) 0 uL; Basophils % (auto) 0.2 % (0.0-2.0); Eosinophils # (auto) 0 uL; Hematocrit 31.1 % (41.0-53.0); Hemoglobin 10.5 g/dL (13.5-17.5); Lymphocytes # (auto) 0.5 uL; Lymphocytes % (auto) 5.8 % (10.0-50.0); Mean Corpuscular Hemoglobin 30.4 pg (28.0-32.0); Mean Corpuscular Hgb Conc. 33.8 g/dL (32.0-36.0); Monocytes # (auto) 0.4 uL; Monocytes % (auto) 4.5 % (0.0-12.0); Neutrophils # (auto) 7.9 uL; Neutrophils % (auto) 89.5 % (37.0-80.0); Nucleated Red Blood Cells % 0.2 %; Platelet Count (auto) 59 10^3/uL (140-450); Red Blood Cells 3.46 10^6/uL (4.5-5.90); Red Cell Distribution Width 14.3 % (11.8-14.3); White Blood Cell 8.8 10^3/uL (4.4-10.8)
[2017-10-25] MEDS: MILRINONE 20MG/100ML 100 ML IV SCH (10:34)
[2017-10-25 10:40] LABS: Albumin 3.6 g/dL (3.4-5.0); Bilirubin, Total 1.4 mg/dL (0.2-1.0); Calcium 7.9 mg/dL (8.5-10.1); Potassium 3.9 mmol/L (3.5-5.1); Total Protein 5.8 g/dL (6.4-8.2)
[2017-10-25] MEDS: CHLORHEXIDINE 0.12% ORAL rinse 473ML MT SCH ×2 (10:51→21:40)
[2017-10-25] MEDS: FAMOTIDINE (10MG/ML) 2ML VL IV SCH ×2 (11:21→21:40)
[2017-10-25] MEDS ORDERED: CALCIUM GLUC 4.65meq/50ml D5AE 50 ML IV ONE (11:30)
[2017-10-25] MEDS: SODIUM CHLORIDE 0.9% 1,000 ML IV SCH (14:24)
[2017-10-25 16:16] LABS: Basophils # (auto) 0 uL; Basophils % (auto) 0.1 % (0.0-2.0); Eosinophils # (auto) 0 uL; Eosinophils % (auto) 0.3 % (0.0-7.0); Hematocrit 29.8 % (41.0-53.0); Hemoglobin 10.3 g/dL (13.5-17.5); Lymphocytes # (auto) 0.4 uL; Lymphocytes % (auto) 5.2 % (10.0-50.0); Mean Corpuscular Hemoglobin 31.3 pg (28.0-32.0); Mean Corpuscular Hgb Conc. 34.6 g/dL (32.0-36.0); Mean Corpuscular Volume 90.6 fL (80.0-100.0); Monocytes # (auto) 0.4 uL; Monocytes % (auto) 4.2 % (0.0-12.0); Neutrophils # (auto) 7.7 uL; Neutrophils % (auto) 90.2 % (37.0-80.0); Nucleated Red Blood Cells % 0.1 %; Platelet Count (auto) 48 10^3/uL (140-450); Red Blood Cells 3.29 10^6/uL (4.5-5.90); Red Cell Distribution Width 14.2 % (11.8-14.3); White Blood Cell 8.5 10^3/uL (4.4-10.8)
[2017-10-25] MEDS ORDERED: ALBUMIN 25% 50 ML IV ONE ×2 (16:28→16:45)
[2017-10-25] MEDS ORDERED: BUMETANIDE (0.25MG/ML) 4 ML VIAL IV ONE (16:45)
[2017-10-25 16:49] LABS: BUN/Creatinine Ratio 23.7; Calcium 8.1 mg/dL (8.5-10.1); Potassium 4.3 mmol/L (3.5-5.1)
[2017-10-25] MEDS: NOREPINEPHRINE 8 MG/250ML KIT 250 ML IV SCH (18:24)
[2017-10-25] MEDS: DOPamine 1600MCG/ML D5W 250 ML IV SCH (19:14)
[2017-10-25] MEDS ORDERED: DESMOPRESSIN INJECTION 20 MCG in SODIUM CHL 0.9% 50 ML IV ONE (22:00)
[2017-10-25] MEDS ORDERED: POTASSIUM CHL 20MEQ/50ML 150 ML IV ONE (22:16)
[2017-10-25] MEDS ORDERED: POTASSIUM CHL 20MEQ/50ML 50 ML IV ONE (22:25)
[2017-10-26] VITALS (107 sets, daily range): BP systolic 20–162; BP diastolic 0–123
[2017-10-26] MEDS: ALBUMIN 25% 50 ML IV SCH ×4 (00:06→22:02)
[2017-10-26] MEDS: POTASSIUM CHL 20MEQ/50ML 50 ML IV SCH ×6 (00:37→20:04)
[2017-10-26] MEDS: AMIODARONE HCL 900 MG in DEXTROSE 500 ML IV SCH (00:37)
[2017-10-26] MEDS: BUMETANIDE (0.25MG/ML) 4 ML VIAL IV PRN ×2 (01:07→10:05)
[2017-10-26] MEDS: IPRATROPIUM BROM 0.5 MG/2.5ML INH SOL NEB SCH ×6 (02:14→22:23)
[2017-10-26] MEDS: NICARDIPINE 25MG/250ML BAG KIT 250 ML IV SCH ×5 (02:24→22:24)
[2017-10-26] MEDS: ACETAMINOPHEN 325 MG TAB PO PRN ×2 (05:26→15:23)
[2017-10-26] MEDS: ACETYLCYSTEINE 10 %(100MG/ML) SOL 4ML NEB SCH ×3 (05:58→22:23)
[2017-10-26] MEDS: DOPamine 1600MCG/ML D5W 250 ML IV SCH (06:28)
[2017-10-26 06:29] LABS: Basophils # (auto) 0 uL; Basophils % (auto) 0.2 % (0.0-2.0); Eosinophils # (auto) 0 uL; Hemoglobin 10.7 g/dL (13.5-17.5); Lymphocytes # (auto) 0.5 uL; Lymphocytes % (auto) 4.9 % (10.0-50.0); Monocytes # (auto) 0.6 uL; Nucleated Red Blood Cells % 0.1 %
[2017-10-26 06:32] LABS: Eosinophils % (auto) 0.2 % (0.0-7.0); Hematocrit 31.1 % (41.0-53.0); Mean Corpuscular Hemoglobin 31.1 pg (28.0-32.0); Mean Corpuscular Hgb Conc. 34.3 g/dL (32.0-36.0); Mean Corpuscular Volume 90.7 fL (80.0-100.0); Monocytes % (auto) 6.3 % (0.0-12.0); Neutrophils # (auto) 8.7 uL; Neutrophils % (auto) 88.4 % (37.0-80.0); Platelet Count (auto) 52 10^3/uL (140-450); Red Blood Cells 3.43 10^6/uL (4.5-5.90); Red Cell Distribution Width 14.5 % (11.8-14.3); White Blood Cell 9.8 10^3/uL (4.4-10.8)
[2017-10-26 06:58] LABS: Albumin 3.6 g/dL (3.4-5.0); BUN/Creatinine Ratio 26.8; Bilirubin, Total 2.2 mg/dL (0.2-1.0); Calcium 8.4 mg/dL (8.5-10.1); Magnesium 2.9 mg/dL (1.6-2.6); Potassium 4.6 mmol/L (3.5-5.1); Total Protein 6.2 g/dL (6.4-8.2)
[2017-10-26] MEDS: MORPHINE SULF INJ 2 MG/ML SYRINGE 1ML IV PRN ×3 (08:44→21:30)
[2017-10-26] MEDS: FAMOTIDINE (10MG/ML) 2ML VL IV SCH ×2 (10:05→22:02)
[2017-10-26] MEDS: CHLORHEXIDINE 0.12% ORAL rinse 473ML MT SCH ×2 (10:06→22:02)
[2017-10-26 11:27] LABS: Potassium 3.8 mmol/L (3.5-5.1)
[2017-10-26 11:43] LABS: Basophils # (auto) 0 uL; Eosinophils # (auto) 0 uL; Monocytes # (auto) 0.5 uL; Monocytes % (auto) 4.9 % (0.0-12.0)
[2017-10-26 11:44] LABS: Basophils % (auto) 0.1 % (0.0-2.0); Eosinophils % (auto) 0.4 % (0.0-7.0); Lymphocytes # (auto) 0.5 uL; Lymphocytes % (auto) 4.8 % (10.0-50.0); Mean Corpuscular Hemoglobin 31.1 pg (28.0-32.0); Mean Corpuscular Hgb Conc. 34.2 g/dL (32.0-36.0); Neutrophils # (auto) 9.3 uL; Neutrophils % (auto) 89.8 % (37.0-80.0); Nucleated Red Blood Cells % 0.1 %; Platelet Count (auto) 54 10^3/uL (140-450); Red Blood Cells 3.52 10^6/uL (4.5-5.90); Red Cell Distribution Width 14.3 % (11.8-14.3); White Blood Cell 10.3 10^3/uL (4.4-10.8)
[2017-10-26 11:50] LABS: INR 1.05 (0.9-1.15); Partial Thromboplastin Time 36.2 sec (22.64-33.71); Prothrombin Time 11.4 sec (9.37-12.3)
[2017-10-26] MEDS: SODIUM CHLORIDE 0.9% 500 ML IV SCH (13:00)
[2017-10-26] MEDS ORDERED: METOPROLOL TARTRATE 1MG/1ML-5ML VIAL IV ONE (13:44)
[2017-10-26] MEDS ORDERED: ACETAMINOPHEN 650 mg PER 20 mL UD ONE (15:03)
[2017-10-26] MEDS ORDERED: POTASSIUM CHLORIDE 80 MEQ, LIDOCAINE 1% (LOCAL ANESTH.) 6 ML in SODIUM CHL 0.9% 500 ML IV ONE (15:30)
[2017-10-26] MEDS: SODIUM CHLORIDE 0.9% 1,000 ML IV SCH (16:00)
[2017-10-26] MEDS ORDERED: INSULIN DRIP 100 UNIT/100ML 100 ML IV SCH (17:17)
[2017-10-26] MEDS ORDERED: DEXTROSE (50%) 50ML SYRG IV PRN (17:30)
[2017-10-26] MEDS: PROPOFOL 100 ML IV SCH ×2 (17:38→23:48)
[2017-10-26] MEDS ORDERED: METOPROLOL TARTRATE 1MG/1ML-5ML VIAL IV SCH (18:00)
[2017-10-26] MEDS: ACCU-CHEK COMFORT CURVE STRIP VI SCH ×7 (18:00→23:49)
[2017-10-26] MEDS: NOREPINEPHRINE 8 MG/250ML KIT 250 ML IV SCH (18:24)
[2017-10-26] MEDS ORDERED: ALBUMIN 25% 100 ML IV ONE ×2 (18:27→18:30)
[2017-10-26] MEDS ORDERED: NITROGLYCERIN 50MG/250ML 250 ML IV SCH (18:30)
[2017-10-26] MEDS: SOD CHL 0.45% 1,000 ML IV SCH (18:30)
[2017-10-27] VITALS (103 sets, daily range): BP systolic 17–164; BP diastolic 5–98
[2017-10-27] MEDS: AMIODARONE HCL 900 MG in DEXTROSE 500 ML IV SCH (00:45)
[2017-10-27] MEDS: ACCU-CHEK COMFORT CURVE STRIP VI SCH ×15 (01:17→18:09)
[2017-10-27] MEDS: MORPHINE SULF INJ 2 MG/ML SYRINGE 1ML IV PRN ×3 (01:32→14:51)
[2017-10-27] MEDS: IPRATROPIUM BROM 0.5 MG/2.5ML INH SOL NEB SCH ×6 (02:20→22:23)
[2017-10-27] MEDS: NICARDIPINE 25MG/250ML BAG KIT 250 ML IV SCH ×5 (03:24→23:24)
[2017-10-27 03:55] LABS: Basophils # (auto) 0 uL; Basophils % (auto) 0.1 % (0.0-2.0); Lymphocytes # (auto) 0.5 uL; Nucleated Red Blood Cells % 0.1 %; Red Cell Distribution Width 14.3 % (11.8-14.3)
[2017-10-27 03:56] LABS: Eosinophils # (auto) 0.2 uL; Eosinophils % (auto) 1.6 % (0.0-7.0); Hematocrit 29.2 % (41.0-53.0); Hemoglobin 10.1 g/dL (13.5-17.5); Lymphocytes % (auto) 5.3 % (10.0-50.0); Mean Corpuscular Hemoglobin 31.3 pg (28.0-32.0); Mean Corpuscular Hgb Conc. 34.4 g/dL (32.0-36.0); Mean Corpuscular Volume 90.9 fL (80.0-100.0); Monocytes # (auto) 0.7 uL; Neutrophils # (auto) 8.1 uL; Platelet Count (auto) 48 10^3/uL (140-450); Red Blood Cells 3.21 10^6/uL (4.5-5.90); White Blood Cell 9.5 10^3/uL (4.4-10.8)
[2017-10-27 04:37] LABS: Albumin 3.7 g/dL (3.4-5.0); BUN/Creatinine Ratio 34.8; Calcium 8.5 mg/dL (8.5-10.1); Potassium 3.9 mmol/L (3.5-5.1)
[2017-10-27 04:40] LABS: Bilirubin, Total 3.1 mg/dL (0.2-1.0); Total Protein 6.3 g/dL (6.4-8.2)
[2017-10-27] MEDS: ALBUMIN 25% 50 ML IV SCH (05:52)
[2017-10-27] MEDS: ACETYLCYSTEINE 10 %(100MG/ML) SOL 4ML NEB SCH ×3 (06:02→22:23)
[2017-10-27] MEDS ORDERED: POTASSIUM CHL 20MEQ/50ML 50 ML IV SCH (09:00)
[2017-10-27] MEDS: POTASSIUM CHL 20MEQ/50ML 50 ML IV SCH ×2 (09:27→10:45)
[2017-10-27] MEDS: CHLORHEXIDINE 0.12% ORAL rinse 473ML MT SCH ×2 (09:42→22:00)
[2017-10-27] MEDS: FAMOTIDINE (10MG/ML) 2ML VL IV SCH ×2 (09:55→22:00)
[2017-10-27] MEDS: fentaNYL CITRATE 100 MCG/2 ML VL IV PRN (12:29)
[2017-10-27] MEDS: SODIUM CHLORIDE 0.9% 500 ML IV SCH (13:00)
[2017-10-27] MEDS: SOD CHL 0.45% 1,000 ML IV SCH (14:30)
[2017-10-27] MEDS: ACETAMINOPHEN 650 mg PER 20 mL UD GT PRN (15:05)
[2017-10-27] MEDS ORDERED: DEXTROSE (50%) 50ML SYRG IV PRN (15:15)
[2017-10-27] MEDS ORDERED: Fibersource Hn 1 Liter GT SCH (15:15)
[2017-10-27] MEDS: DOPamine 1600MCG/ML D5W 250 ML IV SCH (17:03)
[2017-10-27] MEDS: DEXMEDETOMIDINE HCL 400 MCG in SODIUM CHL 0.9% 96 ML IV SCH (17:33)
[2017-10-27] MEDS: InsuLIN REG 1unit/0.01ml Soln (100units/ml) SC SCH (18:00)
[2017-10-27] MEDS: NOREPINEPHRINE 8 MG/250ML KIT 250 ML IV SCH (18:24)
[2017-10-27] MEDS ORDERED: LIDOCAINE 1% HCL (LOCAL ANESTH.) INJ 20ML MDV ID ONE (21:15)
[2017-10-27] MEDS: SODIUM CHLOR 0.9% PF (SALINE LOCK) 10ML VIAL IV SCH (22:00)
[2017-10-28] VITALS (106 sets, daily range): BP systolic 72–168; BP diastolic 40–116
[2017-10-28] MEDS: AMIODARONE HCL 900 MG in DEXTROSE 500 ML IV SCH (00:45)
[2017-10-28] MEDS: IPRATROPIUM BROM 0.5 MG/2.5ML INH SOL NEB SCH ×6 (02:37→22:10)
[2017-10-28 03:51] LABS: Basophils # (auto) 0 uL; Basophils % (auto) 0.2 % (0.0-2.0); Eosinophils # (auto) 0.4 uL; Eosinophils % (auto) 4.8 % (0.0-7.0); Hematocrit 33.5 % (41.0-53.0); Hemoglobin 11.3 g/dL (13.5-17.5); Lymphocytes # (auto) 0.4 uL; Lymphocytes % (auto) 4.7 % (10.0-50.0); Mean Corpuscular Hemoglobin 30.9 pg (28.0-32.0); Mean Corpuscular Hgb Conc. 33.7 g/dL (32.0-36.0); Mean Corpuscular Volume 91.8 fL (80.0-100.0); Monocytes # (auto) 0.9 uL; Monocytes % (auto) 11.1 % (0.0-12.0); Neutrophils # (auto) 6.4 uL; Neutrophils % (auto) 79.2 % (37.0-80.0); Platelet Count (auto) 70 10^3/uL (140-450); Red Blood Cells 3.65 10^6/uL (4.5-5.90); Red Cell Distribution Width 13.9 % (11.8-14.3); White Blood Cell 8.2 10^3/uL (4.4-10.8)
[2017-10-28 04:12] LABS: Calcium 8.9 mg/dL (8.5-10.1); Magnesium 2.9 mg/dL (1.6-2.6); Potassium 4.3 mmol/L (3.5-5.1)
[2017-10-28] MEDS: InsuLIN REG 1unit/0.01ml Soln (100units/ml) SC SCH ×4 (04:13→18:00)
[2017-10-28] MEDS: NICARDIPINE 25MG/250ML BAG KIT 250 ML IV SCH ×4 (04:13→19:24)
[2017-10-28] MEDS: ACCU-CHEK COMFORT CURVE STRIP VI SCH ×4 (04:13→18:00)
[2017-10-28] MEDS: DEXMEDETOMIDINE HCL 400 MCG in SODIUM CHL 0.9% 96 ML IV SCH (04:13)
[2017-10-28 04:14] LABS: BUN/Creatinine Ratio 40.9
[2017-10-28] MEDS: PROPOFOL 100 ML IV SCH ×2 (04:14→22:41)
[2017-10-28] MEDS: ACETYLCYSTEINE 10 %(100MG/ML) SOL 4ML NEB SCH ×3 (06:08→18:24)
[2017-10-28] MEDS: DOPamine 1600MCG/ML D5W 250 ML IV SCH (07:45)
[2017-10-28] MEDS: DEXMEDETOMIDINE HCL 400 MCG in D5W 5% 96 ML IV SCH ×2 (08:00→20:55)
[2017-10-28] MEDS: ACETAMINOPHEN 650 mg PER 20 mL UD GT PRN ×3 (10:05→22:42)
[2017-10-28] MEDS: CHLORHEXIDINE 0.12% ORAL rinse 473ML MT SCH ×2 (10:28→22:09)
[2017-10-28] MEDS: FAMOTIDINE (10MG/ML) 2ML VL IV SCH ×2 (10:28→22:09)
[2017-10-28] MEDS: SODIUM CHLOR 0.9% PF (SALINE LOCK) 10ML VIAL IV SCH ×2 (10:28→22:09)
[2017-10-28] MEDS ORDERED: FUROSEMIDE 40 MG/4 ML VIAL ONE (12:13)
[2017-10-28] MEDS ORDERED: FUROSEMIDE 40 MG/4 ML VIAL IV ONE (12:15)
[2017-10-28] MEDS: SODIUM CHLORIDE 0.9% 500 ML IV SCH (13:00)
[2017-10-28] MEDS ORDERED: TPN PER PHARMACY 0 ML IV SCH (17:15)
[2017-10-28] MEDS: NOREPINEPHRINE 8 MG/250ML KIT 250 ML IV SCH ×2 (18:24→23:45)
[2017-10-28] MEDS: MORPHINE SULF INJ 2 MG/ML SYRINGE 1ML IV PRN (19:25)
[2017-10-28] MEDS: AMINO ACID INFUSION IN D10W 1,000 ML IV NR (21:00)
[2017-10-29] VITALS (87 sets, daily range): BP systolic 79–155; BP diastolic 40–109
[2017-10-29] MEDS ORDERED: DEXTROSE (50%) 50ML SYRG IV SCH
[2017-10-29] MEDS: InsuLIN REG 1unit/0.01ml Soln (100units/ml) SC SCH ×4 (00:09→17:48)
[2017-10-29] MEDS: ACCU-CHEK COMFORT CURVE STRIP VI SCH ×4 (00:10→17:47)
[2017-10-29] MEDS: NICARDIPINE 25MG/250ML BAG KIT 250 ML IV SCH ×5 (00:24→20:24)
[2017-10-29] MEDS: AMIODARONE HCL 900 MG in DEXTROSE 500 ML IV SCH (00:45)
[2017-10-29] MEDS: IPRATROPIUM BROM 0.5 MG/2.5ML INH SOL NEB SCH ×6 (01:58→22:02)
[2017-10-29 04:10] LABS: Basophils # (auto) 0 uL; Basophils % (auto) 0.3 % (0.0-2.0); Eosinophils # (auto) 0.2 uL; Eosinophils % (auto) 1.4 % (0.0-7.0); Hematocrit 37.5 % (41.0-53.0); Hemoglobin 12.5 g/dL (13.5-17.5); Lymphocytes # (auto) 0.9 uL; Lymphocytes % (auto) 6.3 % (10.0-50.0); Mean Corpuscular Hemoglobin 30.3 pg (28.0-32.0); Mean Corpuscular Hgb Conc. 33.2 g/dL (32.0-36.0); Mean Corpuscular Volume 91.1 fL (80.0-100.0); Monocytes # (auto) 1.3 uL; Monocytes % (auto) 9.1 % (0.0-12.0); Neutrophils # (auto) 11.4 uL; Neutrophils % (auto) 82.9 % (37.0-80.0); Platelet Count (auto) 116 10^3/uL (140-450); Red Blood Cells 4.11 10^6/uL (4.5-5.90); Red Cell Distribution Width 13.8 % (11.8-14.3); White Blood Cell 13.8 10^3/uL (4.4-10.8)
[2017-10-29 04:40] LABS: Albumin 3.6 g/dL (3.4-5.0); BUN/Creatinine Ratio 41.9; Calcium 8.9 mg/dL (8.5-10.1); Magnesium 2.8 mg/dL (1.6-2.6); Phosphorus 2.3 mg/dL (2.5-4.90); Potassium 3.6 mmol/L (3.5-5.1); Total Protein 6.8 g/dL (6.4-8.2)
[2017-10-29] MEDS: AMINO ACID INFUSION IN D10W 1,000 ML IV NR (05:59)
[2017-10-29] MEDS: ACETYLCYSTEINE 10 %(100MG/ML) SOL 4ML NEB SCH ×3 (07:05→22:03)
[2017-10-29] MEDS: ACETAMINOPHEN 650 mg PER 20 mL UD GT PRN ×3 (07:56→22:17)
[2017-10-29] MEDS: PROPOFOL 100 ML IV SCH ×2 (07:56→15:58)
[2017-10-29] MEDS ORDERED: POTASSIUM CHL 20MEQ/50ML 100 ML IV ONE ×2 (08:14→17:28)
[2017-10-29] MEDS ORDERED: D5W 5% 1,000 ML IV ONE (08:15)
[2017-10-29] MEDS: DOPamine 1600MCG/ML D5W 250 ML IV SCH (08:49)
[2017-10-29] MEDS: POTASSIUM CHL 20MEQ/50ML 50 ML IV SCH ×4 (08:50→19:30)
[2017-10-29] MEDS: CHLORHEXIDINE 0.12% ORAL rinse 473ML MT SCH ×2 (10:18→22:00)
[2017-10-29] MEDS: SODIUM CHLOR 0.9% PF (SALINE LOCK) 10ML VIAL IV SCH ×2 (10:18→22:00)
[2017-10-29] MEDS: FAMOTIDINE (10MG/ML) 2ML VL IV SCH ×2 (10:23→22:00)
[2017-10-29] MEDS: MORPHINE SULF INJ 2 MG/ML SYRINGE 1ML IV PRN ×2 (11:51→18:01)
[2017-10-29] MEDS: SODIUM CHLORIDE 0.9% 500 ML IV SCH (13:00)
[2017-10-29] MEDS ORDERED: LINEZOLID 600MG/300ML 300 ML IV SCH ×2 (14:28→15:00)
[2017-10-29] MEDS ORDERED: ALBUMIN 25% 50 ML IV ONE (14:30)
[2017-10-29] MEDS ORDERED: LEVOFLOXACIN 500MG 100 ML IV ONE ×2 (14:30)
[2017-10-29] MEDS: fentaNYL CITRATE 100 MCG/2 ML VL IV PRN (14:34)
[2017-10-29] MEDS: LINEZOLID 600MG/300ML 300 ML IV SCH ×2 (14:45→17:09)
[2017-10-29] MEDS ORDERED: ALBUMIN 5% 50 ML IV ONE (14:45)
[2017-10-29] MEDS: fentaNYL Drip 2500mCg/250mlNS 250 ML IV SCH ×2 (14:53→16:53)
[2017-10-29] MEDS ORDERED: METOPROLOL TARTRATE 1MG/1ML-5ML VIAL IV SCH (16:00)
[2017-10-29] MEDS ORDERED: METOPROLOL TARTRATE 1MG/1ML-5ML VIAL IV ONE (16:00)
[2017-10-29 16:58] LABS: Calcium 8.6 mg/dL (8.5-10.1); Potassium 3.6 mmol/L (3.5-5.1)
[2017-10-29] MEDS: LACTULOSE 20Gm/30ML SOLN PO SCH (18:56)
[2017-10-29] MEDS ORDERED: TPN PER PHARMACY IV NR ×8 (20:00)
[2017-10-29] MEDS: METOPROLOL TARTRATE 1MG/1ML-5ML VIAL IV SCH (22:00)
[2017-10-29] MEDS: metroNIDAZOLE 500MG/100ML 100 ML IV SCH (22:00)
[2017-10-29] MEDS ORDERED: MEPERIDINE HCL (25 MG/ML) 1ML VIAL ONE (23:56)
[2017-10-30] VITALS (104 sets, daily range): BP systolic 72–153; BP diastolic 41–81
[2017-10-30] MEDS ORDERED: MEPERIDINE HCL (25 MG/ML) 1ML VIAL IV ONE
[2017-10-30] MEDS ORDERED: IBUPROFEN 100MG/5ML ORAL SUSP 100 MG/5 ML UD GT ONE (00:45)
[2017-10-30] MEDS: ACCU-CHEK COMFORT CURVE STRIP VI SCH ×6 (01:40→23:42)
[2017-10-30] MEDS: InsuLIN REG 1unit/0.01ml Soln (100units/ml) SC SCH ×6 (01:48→23:42)
[2017-10-30] MEDS: LINEZOLID 600MG/300ML 300 ML IV SCH ×2 (03:00→17:08)
[2017-10-30] MEDS: METOPROLOL TARTRATE 1MG/1ML-5ML VIAL IV SCH ×4 (04:00→21:59)
[2017-10-30 05:51] LABS: Basophils # (auto) 0 uL; Basophils % (auto) 0.1 % (0.0-2.0); Eosinophils # (auto) 0.2 uL; Eosinophils % (auto) 0.8 % (0.0-7.0); Hematocrit 35.4 % (41.0-53.0); Hemoglobin 11.7 g/dL (13.5-17.5); Lymphocytes # (auto) 0.4 uL; Lymphocytes % (auto) 1.8 % (10.0-50.0); Mean Corpuscular Hemoglobin 30.4 pg (28.0-32.0); Mean Corpuscular Hgb Conc. 33.2 g/dL (32.0-36.0); Mean Corpuscular Volume 91.6 fL (80.0-100.0); Monocytes # (auto) 0.5 uL; Monocytes % (auto) 2.1 % (0.0-12.0); Neutrophils # (auto) 22.8 uL; Neutrophils % (auto) 95.2 % (37.0-80.0); Nucleated Red Blood Cells % 0.1 %; Platelet Count (auto) 111 10^3/uL (140-450); Red Blood Cells 3.86 10^6/uL (4.5-5.90); Red Cell Distribution Width 14.3 % (11.8-14.3); White Blood Cell 23.9 10^3/uL (4.4-10.8)
[2017-10-30] MEDS: IPRATROPIUM BROM 0.5 MG/2.5ML INH SOL NEB SCH ×5 (05:56→22:12)
[2017-10-30] MEDS: ACETYLCYSTEINE 10 %(100MG/ML) SOL 4ML NEB SCH ×3 (05:56→22:12)
[2017-10-30] MEDS: LACTULOSE 20Gm/30ML SOLN PO SCH ×6 (06:00→23:42)
[2017-10-30 06:17] LABS: Albumin 3.1 g/dL (3.4-5.0); BUN/Creatinine Ratio 37.1; Bilirubin, Total 4.7 mg/dL (0.2-1.0); Magnesium 2.2 mg/dL (1.6-2.6); Potassium 3.9 mmol/L (3.5-5.1); Total Protein 6.1 g/dL (6.4-8.2)
[2017-10-30] MEDS: NICARDIPINE 25MG/250ML BAG KIT 250 ML IV SCH ×5 (06:24→21:24)
[2017-10-30] MEDS: metroNIDAZOLE 500MG/100ML 100 ML IV SCH ×3 (06:30→22:00)
[2017-10-30] MEDS: AMIODARONE HCL 900 MG in DEXTROSE 500 ML IV SCH (07:41)
[2017-10-30] MEDS: DEXMEDETOMIDINE HCL 400 MCG in D5W 5% 96 ML IV SCH (07:41)
[2017-10-30] MEDS: DOPamine 1600MCG/ML D5W 250 ML IV SCH (07:45)
[2017-10-30] MEDS ORDERED: POTASSIUM CHL 20MEQ/50ML 100 ML IV ONE (08:00)
[2017-10-30] MEDS: POTASSIUM CHL 20MEQ/50ML 50 ML IV SCH ×2 (08:15→11:03)
[2017-10-30] MEDS: SODIUM CHLOR 0.9% PF (SALINE LOCK) 10ML VIAL IV SCH ×2 (10:00→22:00)
[2017-10-30] MEDS ORDERED: LEVOFLOXACIN 500MG 100 ML IV SCH ×2 (10:00)
[2017-10-30] MEDS ORDERED: INSULIN DETEMIR(LEVEMIR) 1unit/0.01ml Soln (100units/ml) SC ONE (10:45)
[2017-10-30] MEDS: CHLORHEXIDINE 0.12% ORAL rinse 473ML MT SCH ×2 (11:03→22:00)
[2017-10-30] MEDS: PROPOFOL 100 ML IV SCH ×3 (11:04→17:14)
[2017-10-30] MEDS: fentaNYL Drip 2500mCg/250mlNS 250 ML IV SCH (11:04)
[2017-10-30] MEDS: FAMOTIDINE (10MG/ML) 2ML VL IV SCH ×2 (11:19→22:00)
[2017-10-30] MEDS ORDERED: CALCIUM GLUC 4.65meq/50ml D5AE 50 ML IV ONE (11:45)
[2017-10-30] MEDS ORDERED: ALBUMIN 25% 50 ML IV ONE (12:00)
[2017-10-30] MEDS ORDERED: DEXTROSE (50%) 50ML SYRG IV PRN (13:00)
[2017-10-30] MEDS: SODIUM CHLORIDE 0.9% 500 ML IV SCH (13:00)
[2017-10-30] MEDS ORDERED: SODIUM BICARBONATE 8.4 % INJ 50ML VIAL IV ONE (16:15)
[2017-10-30] MEDS ORDERED: SODIUM BICARBONATE 8.4% INJ 50ML SYRINGE ONE (16:23)
[2017-10-30] MEDS ORDERED: FLUCONAZOLE 200MG/100ML 100 ML IV ONE (16:45)
[2017-10-30] MEDS ORDERED: PIPERACILLIN-TAZOB 3.375GM 50 ML IV ONE (17:00)
[2017-10-30] MEDS: MORPHINE SULFATE 4 MG/ML SYR/VIAL IV PRN (17:47)
[2017-10-30] MEDS: NOREPINEPHRINE 8 MG/250ML KIT 250 ML IV SCH (18:24)
[2017-10-30] MEDS ORDERED: TPN PER PHARMACY IV NR ×9 (20:00)
[2017-10-30] MEDS: METOCLOPRAMIDE HCL 5MG/ml INJ 2ml VIAL IV SCH (22:00)
[2017-10-30] MEDS: PIPERACILLIN-TAZOB 3.375GM 50 ML IV SCH (22:00)
[2017-10-30] MEDS: INSULIN DETEMIR(LEVEMIR) 1unit/0.01ml Soln (100units/ml) SC SCH (22:09)
[2017-10-31] VITALS (103 sets, daily range): BP systolic 93–128; BP diastolic 51–76
[2017-10-31] MEDS: AMIODARONE HCL 900 MG in DEXTROSE 500 ML IV SCH (00:45)
[2017-10-31] MEDS: DOPamine 1600MCG/ML D5W 250 ML IV SCH (01:00)
[2017-10-31] MEDS: IPRATROPIUM BROM 0.5 MG/2.5ML INH SOL NEB SCH ×6 (02:15→22:15)
[2017-10-31] MEDS: ACETAMINOPHEN 650 mg PER 20 mL UD GT PRN ×3 (02:22→16:14)
[2017-10-31] MEDS: NICARDIPINE 25MG/250ML BAG KIT 250 ML IV SCH ×5 (02:24→22:24)
[2017-10-31] MEDS: LINEZOLID 600MG/300ML 300 ML IV SCH ×2 (02:56→14:29)
[2017-10-31] MEDS: ACCU-CHEK COMFORT CURVE STRIP VI SCH ×6 (03:35→23:28)
[2017-10-31] MEDS: METOPROLOL TARTRATE 1MG/1ML-5ML VIAL IV SCH ×4 (03:35→21:39)
[2017-10-31] MEDS: InsuLIN REG 1unit/0.01ml Soln (100units/ml) SC SCH ×6 (03:35→23:32)
[2017-10-31] MEDS: PROPOFOL 100 ML IV SCH ×4 (04:55→16:44)
[2017-10-31 05:20] LABS: Basophils # (auto) 0 uL; Basophils % (auto) 0.2 % (0.0-2.0); Eosinophils # (auto) 0.9 uL; Eosinophils % (auto) 4.5 % (0.0-7.0); Hematocrit 32.8 % (41.0-53.0); Hemoglobin 10.7 g/dL (13.5-17.5); Lymphocytes # (auto) 0.7 uL; Lymphocytes % (auto) 3.4 % (10.0-50.0); Mean Corpuscular Hemoglobin 30.1 pg (28.0-32.0); Mean Corpuscular Hgb Conc. 32.5 g/dL (32.0-36.0); Mean Corpuscular Volume 92.6 fL (80.0-100.0); Monocytes # (auto) 0.7 uL; Monocytes % (auto) 3.6 % (0.0-12.0); Neutrophils # (auto) 17.8 uL; Neutrophils % (auto) 88.3 % (37.0-80.0); Platelet Count (auto) 93 10^3/uL (140-450); Red Blood Cells 3.54 10^6/uL (4.5-5.90); Red Cell Distribution Width 14.9 % (11.8-14.3); White Blood Cell 20.1 10^3/uL (4.4-10.8)
[2017-10-31] MEDS: LACTULOSE 20Gm/30ML SOLN PO SCH ×4 (05:30→23:27)
[2017-10-31] MEDS: metroNIDAZOLE 500MG/100ML 100 ML IV SCH ×3 (05:30→21:41)
[2017-10-31] MEDS: PIPERACILLIN-TAZOB 3.375GM 50 ML IV SCH ×3 (05:30→21:41)
[2017-10-31] MEDS: METOCLOPRAMIDE HCL 5MG/ml INJ 2ml VIAL IV SCH ×3 (05:30→21:41)
[2017-10-31 05:52] LABS: Albumin 2.8 g/dL (3.4-5.0); BUN/Creatinine Ratio 34.5; Bilirubin, Total 3.8 mg/dL (0.2-1.0); Calcium 7.9 mg/dL (8.5-10.1); Magnesium 2.2 mg/dL (1.6-2.6); Phosphorus 2.8 mg/dL (2.5-4.90); Total Protein 5.9 g/dL (6.4-8.2)
[2017-10-31] MEDS: ACETYLCYSTEINE 10 %(100MG/ML) SOL 4ML NEB SCH ×3 (06:06→22:15)
[2017-10-31] MEDS: DEXMEDETOMIDINE HCL 400 MCG in D5W 5% 96 ML IV SCH (07:33)
[2017-10-31] MEDS: FLUCONAZOLE 200MG/100ML 100 ML IV SCH (10:23)
[2017-10-31] MEDS: SODIUM CHLOR 0.9% PF (SALINE LOCK) 10ML VIAL IV SCH ×2 (10:24→21:42)
[2017-10-31] MEDS: INSULIN DETEMIR(LEVEMIR) 1unit/0.01ml Soln (100units/ml) SC SCH ×2 (10:24→21:53)
[2017-10-31] MEDS: CHLORHEXIDINE 0.12% ORAL rinse 473ML MT SCH ×2 (10:24→21:42)
[2017-10-31] MEDS: MORPHINE SULFATE 4 MG/ML SYR/VIAL IV PRN ×3 (10:25→15:57)
[2017-10-31] MEDS: SODIUM CHLORIDE 0.9% 500 ML IV SCH (13:00)
[2017-10-31] MEDS: FAMOTIDINE (10MG/ML) 2ML VL IV SCH ×2 (13:11→21:40)
[2017-10-31] MEDS: fentaNYL Drip 2500mCg/250mlNS 250 ML IV SCH (13:11)
[2017-10-31] MEDS ORDERED: MIDAZOLAM DRIP 50 mg/50mL 50 ML IV ONE (17:47)
[2017-10-31] MEDS: MIDAZOLAM DRIP 50 mg/50mL 50 ML IV SCH (18:08)
[2017-10-31] MEDS: NOREPINEPHRINE 8 MG/250ML KIT 250 ML IV SCH (18:24)
[2017-10-31] MEDS ORDERED: TPN PER PHARMACY IV NR ×9 (20:00)
[2017-11-01] VITALS (107 sets, daily range): BP systolic 75–159; BP diastolic 34–84
[2017-11-01] MEDS: AMIODARONE HCL 900 MG in DEXTROSE 500 ML IV SCH ×2 (00:45→13:01)
[2017-11-01] MEDS: IPRATROPIUM BROM 0.5 MG/2.5ML INH SOL NEB SCH ×6 (02:20→22:10)
[2017-11-01] MEDS: LINEZOLID 600MG/300ML 300 ML IV SCH ×2 (02:33→16:50)
[2017-11-01] MEDS: NICARDIPINE 25MG/250ML BAG KIT 250 ML IV SCH ×5 (02:58→23:24)
[2017-11-01] MEDS: ACCU-CHEK COMFORT CURVE STRIP VI SCH ×6 (04:06→23:36)
[2017-11-01] MEDS: InsuLIN REG 1unit/0.01ml Soln (100units/ml) SC SCH ×6 (04:07→23:35)
[2017-11-01] MEDS: METOPROLOL TARTRATE 1MG/1ML-5ML VIAL IV SCH ×4 (04:08→22:01)
[2017-11-01] MEDS: PROPOFOL 100 ML IV SCH ×2 (04:08→15:39)
[2017-11-01 04:38] LABS: Basophils # (auto) 0 uL; Basophils % (auto) 0.2 % (0.0-2.0); Eosinophils # (auto) 0.8 uL; Eosinophils % (auto) 4.1 % (0.0-7.0); Hematocrit 31.6 % (41.0-53.0); Hemoglobin 10.1 g/dL (13.5-17.5); Lymphocytes # (auto) 0.6 uL; Lymphocytes % (auto) 2.9 % (10.0-50.0); Mean Corpuscular Hemoglobin 29.8 pg (28.0-32.0); Mean Corpuscular Volume 93.2 fL (80.0-100.0); Monocytes # (auto) 0.6 uL; Monocytes % (auto) 2.9 % (0.0-12.0); Neutrophils # (auto) 18.2 uL; Neutrophils % (auto) 89.9 % (37.0-80.0); Platelet Count (auto) 113 10^3/uL (140-450); Red Blood Cells 3.39 10^6/uL (4.5-5.90); Red Cell Distribution Width 14.8 % (11.8-14.3); White Blood Cell 20.2 10^3/uL (4.4-10.8)
[2017-11-01 04:49] LABS: Albumin 2.5 g/dL (3.4-5.0); BUN/Creatinine Ratio 30.5; Bilirubin, Total 5.2 mg/dL (0.2-1.0); Magnesium 2.3 mg/dL (1.6-2.6); Potassium 3.8 mmol/L (3.5-5.1); Total Protein 5.8 g/dL (6.4-8.2)
[2017-11-01] MEDS: PIPERACILLIN-TAZOB 3.375GM 50 ML IV SCH (05:30)
[2017-11-01] MEDS: LACTULOSE 20Gm/30ML SOLN PO SCH ×4 (05:30→23:35)
[2017-11-01] MEDS: METOCLOPRAMIDE HCL 5MG/ml INJ 2ml VIAL IV SCH ×3 (05:30→22:02)
[2017-11-01] MEDS: metroNIDAZOLE 500MG/100ML 100 ML IV SCH ×2 (05:30→16:17)
[2017-11-01] MEDS: ACETYLCYSTEINE 10 %(100MG/ML) SOL 4ML NEB SCH ×3 (05:58→22:10)
[2017-11-01] MEDS ORDERED: ALBUMIN 25% 100 ML IV ONE (07:00)
[2017-11-01] MEDS ORDERED: SOD CHL 0.45% 1,000 ML IV SCH (07:00)
[2017-11-01] MEDS ORDERED: POTASSIUM CHL 20MEQ/50ML 50 ML IV ONE (07:00)
[2017-11-01] MEDS: PROPRANOLOL HCL 1 MG/ML VIAL IV PRN (08:54)
[2017-11-01] MEDS: SODIUM CHLOR 0.9% PF (SALINE LOCK) 10ML VIAL IV SCH ×2 (10:00→22:02)
[2017-11-01] MEDS ORDERED: LEVOFLOXACIN 500MG 100 ML IV ONE (10:15)
[2017-11-01] MEDS: FAMOTIDINE (10MG/ML) 2ML VL IV SCH ×2 (10:17→22:02)
[2017-11-01] MEDS: INSULIN DETEMIR(LEVEMIR) 1unit/0.01ml Soln (100units/ml) SC SCH ×2 (10:22→22:03)
[2017-11-01] MEDS: CHLORHEXIDINE 0.12% ORAL rinse 473ML MT SCH ×2 (10:25→22:03)
[2017-11-01] MEDS ORDERED: VORICONAZOLE INJ 0 MG in D5W 5% 250 ML IV SCH ×2 (10:45→22:00)
[2017-11-01] MEDS: FLUCONAZOLE 200MG/100ML 100 ML IV SCH (10:53)
[2017-11-01] MEDS: PHENYLEPHRINE IV 250 ML IV SCH (11:19)
[2017-11-01] MEDS ORDERED: PIPERACILLIN-TAZOB 2.25GM 50 ML IV SCH (12:00)
[2017-11-01] MEDS: fentaNYL Drip 2500mCg/250mlNS 250 ML IV SCH ×2 (12:00→23:44)
[2017-11-01] MEDS ORDERED: MICAFUNGIN SODIUM 100 MG in SODIUM CHL 0.9% 100 ML IV ONE (12:15)
[2017-11-01] MEDS ORDERED: SODIUM BICARBONATE 8.4 % INJ 50ML VIAL IV ONE (12:30)
[2017-11-01] MEDS ORDERED: MICAFUNGIN SODIUM 150 MG in SODIUM CHL 0.9% 100 ML IV ONE (12:45)
[2017-11-01] MEDS ORDERED: POTASSIUM CHL 20MEQ/50ML 50 ML IV PRN (13:00)
[2017-11-01] MEDS: SODIUM CHLORIDE 0.9% 500 ML IV SCH (13:00)
[2017-11-01] MEDS: ACETAMINOPHEN 650 mg PER 20 mL UD GT PRN (16:42)
[2017-11-01] MEDS: DOPamine 1600MCG/ML D5W 250 ML IV SCH (17:01)
[2017-11-01] MEDS: MIDAZOLAM DRIP 50 mg/50mL 50 ML IV SCH ×2 (17:50→23:43)
[2017-11-01] MEDS: MEROPENEM 1gm/20ml IVPUSH 20 ML IV SCH (18:50)
[2017-11-01] MEDS: NOREPINEPHRINE 8 MG/250ML KIT 250 ML IV SCH (19:28)
[2017-11-01] MEDS ORDERED: TPN PER PHARMACY IV NR ×9 (20:00)
[2017-11-01] MEDS: ALBUMIN 25% 50 ML IV SCH (22:00)
[2017-11-02] VITALS (105 sets, daily range): BP systolic 85–152; BP diastolic 45–80
[2017-11-02] MEDS: LINEZOLID 600MG/300ML 300 ML IV SCH ×2 (02:14→16:02)
[2017-11-02] MEDS: IPRATROPIUM BROM 0.5 MG/2.5ML INH SOL NEB SCH ×6 (02:20→22:22)
[2017-11-02] MEDS: METOPROLOL TARTRATE 1MG/1ML-5ML VIAL IV SCH ×4 (03:35→21:32)
[2017-11-02] MEDS: ACCU-CHEK COMFORT CURVE STRIP VI SCH ×6 (03:36→23:30)
[2017-11-02] MEDS: InsuLIN REG 1unit/0.01ml Soln (100units/ml) SC SCH ×6 (03:38→23:30)
[2017-11-02] MEDS: NICARDIPINE 25MG/250ML BAG KIT 250 ML IV SCH ×4 (04:24→19:24)
[2017-11-02] MEDS: METOCLOPRAMIDE HCL 5MG/ml INJ 2ml VIAL IV SCH ×4 (05:24→21:44)
[2017-11-02] MEDS: MEROPENEM 1gm/20ml IVPUSH 20 ML IV SCH ×2 (05:24→18:46)
[2017-11-02] MEDS: LACTULOSE 20Gm/30ML SOLN PO SCH ×4 (05:24→23:30)
[2017-11-02 05:26] LABS: Hematocrit 29.5 % (41.0-53.0); Hemoglobin 9.6 g/dL (13.5-17.5); Mean Corpuscular Hemoglobin 30.4 pg (28.0-32.0); Mean Corpuscular Hgb Conc. 32.7 g/dL (32.0-36.0); Mean Corpuscular Volume 93.1 fL (80.0-100.0); Platelet Count (auto) 116 10^3/uL (140-450); Red Blood Cells 3.17 10^6/uL (4.5-5.90); Red Cell Distribution Width 14.7 % (11.8-14.3)
[2017-11-02 05:38] LABS: Albumin 2.7 g/dL (3.4-5.0); Bilirubin, Total 6.5 mg/dL (0.2-1.0); Calcium 8.1 mg/dL (8.5-10.1); Magnesium 2.2 mg/dL (1.6-2.6); Phosphorus 3.9 mg/dL (2.5-4.90); Potassium 4.2 mmol/L (3.5-5.1); Total Protein 5.9 g/dL (6.4-8.2)
[2017-11-02 05:43] LABS: Band Neutrophils % (manual) 0; Basophils % (manual) 0 (0.0-2.0); Blast Cells 0; Metamyelocytes % 0; Myelocytes % 0; Promyelocytes % 0; Reactive Lymphocytes 0
[2017-11-02] MEDS: ACETYLCYSTEINE 10 %(100MG/ML) SOL 4ML NEB SCH ×3 (06:00→18:00)
[2017-11-02 06:58] LABS: Eosinophils % (manual) 2 (0-7); Lymphocytes % (manual) 3 (10.0-50.0); Monocytes % (manual) 6 (0-12)
[2017-11-02] MEDS: DOPamine 1600MCG/ML D5W 250 ML IV SCH (08:29)
[2017-11-02] MEDS: ACETAMINOPHEN 650 mg PER 20 mL UD GT PRN (08:30)
[2017-11-02] MEDS: PROPOFOL 100 ML IV SCH ×2 (09:58→17:13)
[2017-11-02] MEDS ORDERED: MICAFUNGIN SODIUM 100 MG in D5W 5% 100 ML IV SCH (10:00)
[2017-11-02] MEDS ORDERED: MICAFUNGIN SODIUM 100 MG in SODIUM CHL 0.9% 100 ML IV SCH (10:00)
[2017-11-02] MEDS: ALBUMIN 25% 50 ML IV SCH ×2 (10:38→22:06)
[2017-11-02] MEDS: CHLORHEXIDINE 0.12% ORAL rinse 473ML MT SCH ×2 (10:39→21:32)
[2017-11-02] MEDS: LEVOFLOXACIN 250MG 50 ML IV SCH (10:39)
[2017-11-02] MEDS: FAMOTIDINE (10MG/ML) 2ML VL IV SCH ×2 (10:39→21:31)
[2017-11-02] MEDS: INSULIN DETEMIR(LEVEMIR) 1unit/0.01ml Soln (100units/ml) SC SCH ×2 (10:39→21:32)
[2017-11-02] MEDS: SODIUM CHLOR 0.9% PF (SALINE LOCK) 10ML VIAL IV SCH ×2 (10:39→21:32)
[2017-11-02] MEDS: fentaNYL Drip 2500mCg/250mlNS 250 ML IV SCH (10:39)
[2017-11-02] MEDS: PHENYLEPHRINE IV 250 ML IV SCH (11:19)
[2017-11-02] MEDS: MICAFUNGIN SODIUM IV SCH (11:33)
[2017-11-02] MEDS: D5W 5% IV SCH (11:33)
[2017-11-02] MEDS: SODIUM CHLORIDE 0.9% 500 ML IV SCH (13:39)
[2017-11-02] MEDS: MIDAZOLAM DRIP 50 mg/50mL 50 ML IV SCH (17:13)
[2017-11-02] MEDS: NOREPINEPHRINE 8 MG/250ML KIT 250 ML IV SCH (18:24)
[2017-11-02] MEDS ORDERED: TPN PER PHARMACY IV NR ×10 (20:00)
[2017-11-03] VITALS (102 sets, daily range): BP systolic 83–159; BP diastolic 42–80
[2017-11-03] MEDS: NICARDIPINE 25MG/250ML BAG KIT 250 ML IV SCH ×5 (00:24→20:24)
[2017-11-03] MEDS: AMIODARONE HCL 900 MG in DEXTROSE 500 ML IV SCH (00:45)
[2017-11-03] MEDS: MIDAZOLAM DRIP 50 mg/50mL 50 ML IV SCH ×2 (01:57→09:00)
[2017-11-03] MEDS: NOREPINEPHRINE 8 MG/250ML KIT 250 ML IV SCH (01:57)
[2017-11-03] MEDS: IPRATROPIUM BROM 0.5 MG/2.5ML INH SOL NEB SCH ×6 (02:10→22:33)
[2017-11-03] MEDS: PROPRANOLOL HCL 1 MG/ML VIAL IV PRN (02:13)
[2017-11-03] MEDS: LINEZOLID 600MG/300ML 300 ML IV SCH ×2 (02:59→15:32)
[2017-11-03] MEDS: METOPROLOL TARTRATE 1MG/1ML-5ML VIAL IV SCH ×4 (03:53→21:30)
[2017-11-03] MEDS: InsuLIN REG 1unit/0.01ml Soln (100units/ml) SC SCH ×5 (03:53→20:00)
[2017-11-03] MEDS: ACCU-CHEK COMFORT CURVE STRIP VI SCH ×5 (03:53→20:17)
[2017-11-03 04:08] LABS: Hematocrit 28.4 % (41.0-53.0); Hemoglobin 9.5 g/dL (13.5-17.5); Mean Corpuscular Hemoglobin 30.7 pg (28.0-32.0); Mean Corpuscular Hgb Conc. 33.5 g/dL (32.0-36.0); Mean Corpuscular Volume 91.5 fL (80.0-100.0); Platelet Count (auto) 125 10^3/uL (140-450); Red Blood Cells 3.11 10^6/uL (4.5-5.90); Red Cell Distribution Width 14.8 % (11.8-14.3); White Blood Cell 17.9 10^3/uL (4.4-10.8)
[2017-11-03 04:21] LABS: Basophils % (manual) 0 (0.0-2.0); Blast Cells 0; Promyelocytes % 0; Reactive Lymphocytes 0
[2017-11-03 04:33] LABS: Albumin 2.6 g/dL (3.4-5.0); BUN/Creatinine Ratio 27.2; Bilirubin, Total 7.3 mg/dL (0.2-1.0); Calcium 8.3 mg/dL (8.5-10.1); Magnesium 2.2 mg/dL (1.6-2.6); Phosphorus 3.6 mg/dL (2.5-4.90); Potassium 3.6 mmol/L (3.5-5.1); Total Protein 6.1 g/dL (6.4-8.2)
[2017-11-03 04:48] LABS: Band Neutrophils % (manual) 5; Eosinophils % (manual) 7 (0-7); Lymphocytes % (manual) 4 (10.0-50.0); Metamyelocytes % 3; Monocytes % (manual) 4 (0-12); Myelocytes % 1
[2017-11-03] MEDS: LACTULOSE 20Gm/30ML SOLN PO SCH (05:59)
[2017-11-03] MEDS: MEROPENEM 1gm/20ml IVPUSH 20 ML IV SCH ×2 (05:59→18:49)
[2017-11-03] MEDS: METOCLOPRAMIDE HCL 5MG/ml INJ 2ml VIAL IV SCH ×3 (05:59→21:30)
[2017-11-03] MEDS: ACETYLCYSTEINE 10 %(100MG/ML) SOL 4ML NEB SCH ×3 (06:14→18:21)
[2017-11-03] MEDS: fentaNYL Drip 2500mCg/250mlNS 250 ML IV SCH (09:00)
[2017-11-03] MEDS: DOPamine 1600MCG/ML D5W 250 ML IV SCH (09:00)
[2017-11-03] MEDS: PROPOFOL 100 ML IV SCH (09:00)
[2017-11-03] MEDS: LEVOFLOXACIN 250MG 50 ML IV SCH (10:17)
[2017-11-03] MEDS: CHLORHEXIDINE 0.12% ORAL rinse 473ML MT SCH ×2 (10:18→21:30)
[2017-11-03] MEDS: D5W 5% IV SCH (10:18)
[2017-11-03] MEDS: MICAFUNGIN SODIUM IV SCH (10:18)
[2017-11-03] MEDS: FAMOTIDINE (10MG/ML) 2ML VL IV SCH ×2 (10:18→21:30)
[2017-11-03] MEDS: SODIUM CHLOR 0.9% PF (SALINE LOCK) 10ML VIAL IV SCH ×2 (10:18→21:30)
[2017-11-03] MEDS: INSULIN DETEMIR(LEVEMIR) 1unit/0.01ml Soln (100units/ml) SC SCH ×2 (10:32→21:30)
[2017-11-03] MEDS: PHENYLEPHRINE IV 250 ML IV SCH (11:19)
[2017-11-03] MEDS: ALBUMIN 25% 50 ML IV SCH ×2 (12:08→13:24)
[2017-11-03] MEDS: SODIUM CHLORIDE 0.9% 500 ML IV SCH (13:00)
[2017-11-03 18:47] LABS: Urine Amorphous Crystal FEW /hpf (None Seen); Urine Bacteria NONE SEEN /hpf (None Seen); Urine Blood 1+ /uL (Negative); Urine Specific Gravity 1.017 (1.001-1.035); Urine WBC 4 /hpf (0 - 3)
[2017-11-03 18:58] LABS: Creatinine, Urine 61 mg/dL (30.0-125.0); Sodium Urine 28 mmol/L (40-220)
[2017-11-03] MEDS: ACETAMINOPHEN 650 mg PER 20 mL UD GT PRN (19:35)
[2017-11-03] MEDS ORDERED: TPN PER PHARMACY IV NR ×10 (20:00)
[2017-11-04] VITALS (93 sets, daily range): BP systolic 90–165; BP diastolic 46–88
[2017-11-04] MEDS: AMIODARONE HCL 900 MG in DEXTROSE 500 ML IV SCH ×2 (00:45→10:38)
[2017-11-04] MEDS: ALBUMIN 25% 50 ML IV SCH (00:54)
[2017-11-04] MEDS: InsuLIN REG 1unit/0.01ml Soln (100units/ml) SC SCH ×6 (01:00→20:00)
[2017-11-04] MEDS: ACCU-CHEK COMFORT CURVE STRIP VI SCH ×6 (01:00→20:14)
[2017-11-04] MEDS: NICARDIPINE 25MG/250ML BAG KIT 250 ML IV SCH ×2 (01:24→06:24)
[2017-11-04] MEDS: IPRATROPIUM BROM 0.5 MG/2.5ML INH SOL NEB SCH ×6 (02:17→22:04)
[2017-11-04] MEDS: LINEZOLID 600MG/300ML 300 ML IV SCH ×2 (02:33→14:45)
[2017-11-04] MEDS: METOPROLOL TARTRATE 1MG/1ML-5ML VIAL IV SCH ×4 (03:46→22:00)
[2017-11-04 04:03] LABS: Basophils # (auto) 0 uL; Basophils % (auto) 0.2 % (0.0-2.0); Eosinophils # (auto) 0.6 uL; Eosinophils % (auto) 3.7 % (0.0-7.0); Hematocrit 27.4 % (41.0-53.0); Hemoglobin 9.2 g/dL (13.5-17.5); Lymphocytes # (auto) 0.7 uL; Lymphocytes % (auto) 4.4 % (10.0-50.0); Mean Corpuscular Hgb Conc. 33.5 g/dL (32.0-36.0); Mean Corpuscular Volume 89.5 fL (80.0-100.0); Monocytes # (auto) 1.2 uL; Monocytes % (auto) 7.4 % (0.0-12.0); Neutrophils # (auto) 13.8 uL; Neutrophils % (auto) 84.3 % (37.0-80.0); Nucleated Red Blood Cells % 0.1 %; Platelet Count (auto) 141 10^3/uL (140-450); Red Blood Cells 3.06 10^6/uL (4.5-5.90); Red Cell Distribution Width 14.8 % (11.8-14.3); White Blood Cell 16.4 10^3/uL (4.4-10.8)
[2017-11-04 04:20] LABS: Albumin 2.3 g/dL (3.4-5.0); Calcium 8.7 mg/dL (8.5-10.1); Magnesium 2.1 mg/dL (1.6-2.6)
[2017-11-04 04:35] LABS: BUN/Creatinine Ratio 30.5; Bilirubin, Total 6.9 mg/dL (0.2-1.0); Total Protein 5.9 g/dL (6.4-8.2)
[2017-11-04 04:52] LABS: Phosphorus 3.4 mg/dL (2.5-4.90)
[2017-11-04] MEDS: ACETYLCYSTEINE 10 %(100MG/ML) SOL 4ML NEB SCH ×3 (05:45→22:04)
[2017-11-04] MEDS: MEROPENEM 1gm/20ml IVPUSH 20 ML IV SCH ×2 (06:34→18:34)
[2017-11-04] MEDS: METOCLOPRAMIDE HCL 5MG/ml INJ 2ml VIAL IV SCH ×3 (06:35→22:00)
[2017-11-04] MEDS: DOPamine 1600MCG/ML D5W 250 ML IV SCH (07:45)
[2017-11-04] MEDS ORDERED: ONDANSETRON HCL 4 MG/2 ML VIAL IV PRN (08:30)
[2017-11-04] MEDS: AMIODARONE HCL 200 MG TAB PO SCH (10:00)
[2017-11-04] MEDS: INSULIN DETEMIR(LEVEMIR) 1unit/0.01ml Soln (100units/ml) SC SCH ×2 (10:00→22:00)
[2017-11-04] MEDS: LEVOFLOXACIN 250MG 50 ML IV SCH (10:35)
[2017-11-04] MEDS: SODIUM CHLORIDE 0.9% 1,000 ML IV SCH (10:35)
[2017-11-04] MEDS: SODIUM CHLOR 0.9% PF (SALINE LOCK) 10ML VIAL IV SCH ×2 (10:36→22:00)
[2017-11-04] MEDS: PANTOPRAZOLE 40 MG/10 ML VIAL IV SCH ×2 (10:36→22:00)
[2017-11-04] MEDS: CHLORHEXIDINE 0.12% ORAL rinse 473ML MT SCH ×2 (10:37→22:00)
[2017-11-04] MEDS: PROPOFOL 100 ML IV SCH ×2 (10:53→17:53)
[2017-11-04] MEDS: PHENYLEPHRINE IV 250 ML IV SCH (11:19)
[2017-11-04] MEDS: NOREPINEPHRINE 8 MG/250ML KIT 250 ML IV SCH (11:25)
[2017-11-04] MEDS ORDERED: fentaNYL CITRATE 100 MCG/2 ML VL IV PRN (11:30)
[2017-11-04] MEDS: MICAFUNGIN SODIUM IV SCH (12:00)
[2017-11-04] MEDS: D5W 5% IV SCH (12:00)
[2017-11-04 12:32] LABS: Amylase 73 U/L (25-115); Lipase 190 U/L (73-393)
[2017-11-04] MEDS: SODIUM CHLORIDE 0.9% 500 ML IV SCH (13:12)
[2017-11-04] MEDS: fentaNYL Drip 2500mCg/250mlNS 250 ML IV SCH (14:53)
[2017-11-04] MEDS: MIDAZOLAM DRIP 50 mg/50mL 50 ML IV SCH (17:42)
[2017-11-04 19:10] LABS: Potassium 4.3 mmol/L (3.5-5.1)
[2017-11-04 19:12] LABS: BUN/Creatinine Ratio 30.3
[2017-11-04 19:13] LABS: Albumin 2.4 g/dL (3.4-5.0); Calcium 8.8 mg/dL (8.5-10.1); Total Protein 6.5 g/dL (6.4-8.2)
[2017-11-04] MEDS ORDERED: TPN PER PHARMACY IV NR ×9 (20:00)
[2017-11-04] MEDS: PRO-STAT 64 30ML GT SCH (22:00)
[2017-11-05] VITALS (99 sets, daily range): BP systolic 95–151; BP diastolic 49–79
[2017-11-05] MEDS: InsuLIN REG 1unit/0.01ml Soln (100units/ml) SC SCH ×6 (00:30→20:00)
[2017-11-05] MEDS: ACCU-CHEK COMFORT CURVE STRIP VI SCH ×6 (00:30→20:00)
[2017-11-05] MEDS: IPRATROPIUM BROM 0.5 MG/2.5ML INH SOL NEB SCH ×6 (02:09→22:17)
[2017-11-05] MEDS: LINEZOLID 600MG/300ML 300 ML IV SCH ×2 (02:48→15:29)
[2017-11-05] MEDS: METOPROLOL TARTRATE 1MG/1ML-5ML VIAL IV SCH ×4 (04:00→22:00)
[2017-11-05] MEDS: DOPamine 1600MCG/ML D5W 250 ML IV SCH (04:44)
[2017-11-05] MEDS: SODIUM CHLORIDE 0.9% 1,000 ML IV SCH (04:45)
[2017-11-05 05:05] LABS: Basophils % (auto) 0.3 % (0.0-2.0); Eosinophils # (auto) 0.7 uL; Eosinophils % (auto) 3.9 % (0.0-7.0); Platelet Count (auto) 167 10^3/uL (140-450)
[2017-11-05 05:06] LABS: Basophils # (auto) 0.1 uL; Hematocrit 35.1 % (41.0-53.0); Lymphocytes # (auto) 1.2 uL; Lymphocytes % (auto) 7.2 % (10.0-50.0); Mean Corpuscular Hemoglobin 30.3 pg (28.0-32.0); Mean Corpuscular Hgb Conc. 28.5 g/dL (32.0-36.0); Mean Corpuscular Volume 106.6 fL (80.0-100.0); Monocytes # (auto) 1.8 uL; Monocytes % (auto) 10.6 % (0.0-12.0); Neutrophils # (auto) 13.3 uL; Red Blood Cells 3.29 10^6/uL (4.5-5.90); Red Cell Distribution Width 17.7 % (11.8-14.3); White Blood Cell 17.1 10^3/uL (4.4-10.8)
[2017-11-05] MEDS: ACETYLCYSTEINE 10 %(100MG/ML) SOL 4ML NEB SCH ×3 (05:25→22:13)
[2017-11-05] MEDS: METOCLOPRAMIDE HCL 5MG/ml INJ 2ml VIAL IV SCH ×3 (06:00→22:00)
[2017-11-05] MEDS: MEROPENEM 1gm/20ml IVPUSH 20 ML IV SCH ×2 (06:00→18:45)
[2017-11-05] MEDS: PROPOFOL 100 ML IV SCH ×2 (08:00→20:00)
[2017-11-05] MEDS: MORPHINE SULFATE 4 MG/ML SYR/VIAL IV PRN ×2 (09:03→20:00)
[2017-11-05] MEDS: ACETAMINOPHEN 650 mg PER 20 mL UD GT PRN (09:04)
[2017-11-05] MEDS: SODIUM CHLOR 0.9% PF (SALINE LOCK) 10ML VIAL IV SCH ×2 (10:00→22:00)
[2017-11-05] MEDS: PRO-STAT 64 30ML GT SCH ×2 (10:00→22:00)
[2017-11-05] MEDS: AMIODARONE HCL 200 MG TAB PO SCH (10:00)
[2017-11-05] MEDS: LEVOFLOXACIN 250MG 50 ML IV SCH (10:15)
[2017-11-05] MEDS: INSULIN DETEMIR(LEVEMIR) 1unit/0.01ml Soln (100units/ml) SC SCH ×2 (10:15→22:00)
[2017-11-05] MEDS: PANTOPRAZOLE 40 MG/10 ML VIAL IV SCH ×2 (10:15→22:00)
[2017-11-05] MEDS: CHLORHEXIDINE 0.12% ORAL rinse 473ML MT SCH ×2 (10:15→22:00)
[2017-11-05] MEDS: ENOXAPARIN SOD 30 MG/0.3 ML SYRINGE SC SCH (10:15)
[2017-11-05] MEDS: MICAFUNGIN SODIUM IV SCH (10:30)
[2017-11-05] MEDS: D5W 5% IV SCH (10:30)
[2017-11-05] MEDS: PHENYLEPHRINE IV 250 ML IV SCH (11:19)
[2017-11-05] MEDS: NOREPINEPHRINE 8 MG/250ML KIT 250 ML IV SCH (11:25)
[2017-11-05 11:36] LABS: Potassium 5.2 mmol/L (3.5-5.1)
[2017-11-05 11:37] LABS: BUN/Creatinine Ratio 31.1
[2017-11-05 11:39] LABS: Bilirubin, Total 7.8 mg/dL (0.2-1.0); Calcium 7.9 mg/dL (8.5-10.1); Phosphorus 4.3 mg/dL (2.5-4.90); Total Protein 5.9 g/dL (6.4-8.2)
[2017-11-05] MEDS ORDERED: PROPRANOLOL HCL 1 MG/ML VIAL IV ONE (12:57)
[2017-11-05] MEDS: SODIUM CHLORIDE 0.9% 500 ML IV SCH (13:00)
[2017-11-05] MEDS: AMIODARONE HCL 900 MG in DEXTROSE 500 ML IV SCH (16:50)
[2017-11-05] MEDS: MIDAZOLAM DRIP 50 mg/50mL 50 ML IV SCH (17:42)
[2017-11-05 17:53] LABS: BUN/Creatinine Ratio 30.8; Calcium 7.6 mg/dL (8.5-10.1); Potassium 4.9 mmol/L (3.5-5.1)
[2017-11-05] MEDS ORDERED: TPN PER PHARMACY IV NR ×9 (20:00)
[2017-11-06] VITALS (101 sets, daily range): BP systolic 89–154; BP diastolic 27–82
[2017-11-06] MEDS: fentaNYL Drip 2500mCg/250mlNS 250 ML IV SCH ×3 (01:04→14:53)
[2017-11-06] MEDS: IPRATROPIUM BROM 0.5 MG/2.5ML INH SOL NEB SCH ×6 (02:07→22:10)
[2017-11-06] MEDS: LINEZOLID 600MG/300ML 300 ML IV SCH ×2 (02:45→16:11)
[2017-11-06] MEDS: InsuLIN REG 1unit/0.01ml Soln (100units/ml) SC SCH ×6 (04:30→17:57)
[2017-11-06] MEDS: METOPROLOL TARTRATE 1MG/1ML-5ML VIAL IV SCH ×5 (04:30→22:00)
[2017-11-06] MEDS: ACCU-CHEK COMFORT CURVE STRIP VI SCH ×6 (04:30→17:57)
[2017-11-06] MEDS: METOCLOPRAMIDE HCL 5MG/ml INJ 2ml VIAL IV SCH ×3 (06:00→22:00)
[2017-11-06] MEDS: MEROPENEM 1gm/20ml IVPUSH 20 ML IV SCH ×2 (06:00→17:57)
[2017-11-06] MEDS: ACETYLCYSTEINE 10 %(100MG/ML) SOL 4ML NEB SCH ×3 (06:09→22:10)
[2017-11-06 06:57] LABS: Hemoglobin 9.9 g/dL (13.5-17.5); Mean Corpuscular Hemoglobin 29.9 pg (28.0-32.0); Mean Corpuscular Hgb Conc. 33.2 g/dL (32.0-36.0); Mean Corpuscular Volume 90.2 fL (80.0-100.0); Platelet Count (auto) 184 10^3/uL (140-450); Red Blood Cells 3.32 10^6/uL (4.5-5.90); Red Cell Distribution Width 14.8 % (11.8-14.3); White Blood Cell 20.4 10^3/uL (4.4-10.8)
[2017-11-06 07:10] LABS: Basophils % (manual) 0 (0.0-2.0); Blast Cells 0; Metamyelocytes % 0; Myelocytes % 0; Promyelocytes % 0; Reactive Lymphocytes 0
[2017-11-06 07:29] LABS: Band Neutrophils % (manual) 3; Eosinophils % (manual) 3 (0-7); Lymphocytes % (manual) 9 (10.0-50.0); Monocytes % (manual) 9 (0-12)
[2017-11-06 07:30] LABS: Calcium 8.6 mg/dL (8.5-10.1); Magnesium 2.2 mg/dL (1.6-2.6); Potassium 4.3 mmol/L (3.5-5.1)
[2017-11-06 07:32] LABS: BUN/Creatinine Ratio 34.7
[2017-11-06 07:48] LABS: Bilirubin, Total 7.9 mg/dL (0.2-1.0); Phosphorus 4.7 mg/dL (2.5-4.90); Total Protein 6.2 g/dL (6.4-8.2)
[2017-11-06] MEDS: ALBUMIN 25% 50 ML IV SCH ×2 (09:12→21:34)
[2017-11-06] MEDS ORDERED: SODIUM CHLORIDE 0.9% 500 ML IV ONE (09:15)
[2017-11-06] MEDS: AMIODARONE HCL 900 MG in DEXTROSE 500 ML IV SCH (09:30)
[2017-11-06] MEDS: AMIODARONE HCL 200 MG TAB PO SCH (10:00)
[2017-11-06] MEDS: PRO-STAT 64 30ML GT SCH ×2 (10:00→22:00)
[2017-11-06] MEDS: SODIUM CHLOR 0.9% PF (SALINE LOCK) 10ML VIAL IV SCH ×2 (10:00→22:00)
[2017-11-06] MEDS: CHLORHEXIDINE 0.12% ORAL rinse 473ML MT SCH ×2 (10:30→22:00)
[2017-11-06] MEDS: LEVOFLOXACIN 250MG 50 ML IV SCH (10:35)
[2017-11-06] MEDS: INSULIN DETEMIR(LEVEMIR) 1unit/0.01ml Soln (100units/ml) SC SCH ×2 (10:36→22:00)
[2017-11-06] MEDS: PANTOPRAZOLE 40 MG/10 ML VIAL IV SCH ×2 (10:37→22:00)
[2017-11-06] MEDS: ENOXAPARIN SOD 30 MG/0.3 ML SYRINGE SC SCH (10:41)
[2017-11-06] MEDS: PHENYLEPHRINE IV 250 ML IV SCH (11:19)
[2017-11-06] MEDS: NOREPINEPHRINE 8 MG/250ML KIT 250 ML IV SCH (11:25)
[2017-11-06] MEDS: PROPOFOL 100 ML IV SCH ×2 (12:15→23:00)
[2017-11-06] MEDS: SODIUM CHLORIDE 0.9% 500 ML IV SCH ×2 (13:00→16:30)
[2017-11-06] MEDS: D5W 5% IV SCH (14:59)
[2017-11-06] MEDS: MICAFUNGIN SODIUM IV SCH (14:59)
[2017-11-06] MEDS: MIDAZOLAM DRIP 50 mg/50mL 50 ML IV SCH (17:29)
[2017-11-06] MEDS: DOPamine 1600MCG/ML D5W 250 ML IV SCH (17:57)
[2017-11-06] MEDS: MORPHINE SULFATE 4 MG/ML SYR/VIAL IV PRN (18:02)
[2017-11-06 18:40] LABS: BUN/Creatinine Ratio 34.2; Calcium 7.9 mg/dL (8.5-10.1)
[2017-11-06] MEDS ORDERED: TPN PER PHARMACY IV NR ×8 (20:00)
[2017-11-06] MEDS: ACETAMINOPHEN 650 mg PER 20 mL UD GT PRN (20:32)
[2017-11-07] VITALS (105 sets, daily range): BP systolic 97–168; BP diastolic 38–103
[2017-11-07] MEDS: ACCU-CHEK COMFORT CURVE STRIP VI SCH ×4 (00:30→18:10)
[2017-11-07] MEDS: IPRATROPIUM BROM 0.5 MG/2.5ML INH SOL NEB SCH ×6 (02:05→22:03)
[2017-11-07] MEDS: ACETAMINOPHEN 650 mg PER 20 mL UD GT PRN ×3 (02:40→22:44)
[2017-11-07] MEDS: PROPRANOLOL HCL 1 MG/ML VIAL IV PRN (02:40)
[2017-11-07] MEDS: AMIODARONE HCL 900 MG in DEXTROSE 500 ML IV SCH ×2 (03:00→09:30)
[2017-11-07] MEDS: LINEZOLID 600MG/300ML 300 ML IV SCH ×2 (03:12→14:08)
[2017-11-07] MEDS: METOPROLOL TARTRATE 1MG/1ML-5ML VIAL IV SCH ×4 (04:30→21:48)
[2017-11-07] MEDS: ACETYLCYSTEINE 10 %(100MG/ML) SOL 4ML NEB SCH ×3 (05:51→22:03)
[2017-11-07] MEDS: METOCLOPRAMIDE HCL 5MG/ml INJ 2ml VIAL IV SCH ×3 (06:00→21:37)
[2017-11-07] MEDS: MEROPENEM 1gm/20ml IVPUSH 20 ML IV SCH ×2 (06:00→18:10)
[2017-11-07] MEDS: InsuLIN REG 1unit/0.01ml Soln (100units/ml) SC SCH ×4 (06:00→18:00)
[2017-11-07 06:16] LABS: Basophils # (auto) 0.2 uL; Basophils % (auto) 0.8 % (0.0-2.0); Eosinophils # (auto) 0.5 uL; Eosinophils % (auto) 2.3 % (0.0-7.0); Hematocrit 29.2 % (41.0-53.0); Hemoglobin 9.8 g/dL (13.5-17.5); Lymphocytes # (auto) 0.9 uL; Mean Corpuscular Hgb Conc. 33.5 g/dL (32.0-36.0); Mean Corpuscular Volume 89.6 fL (80.0-100.0); Monocytes # (auto) 1.8 uL; Monocytes % (auto) 8.3 % (0.0-12.0); Neutrophils # (auto) 18.2 uL; Neutrophils % (auto) 84.6 % (37.0-80.0); Platelet Count (auto) 195 10^3/uL (140-450); Red Blood Cells 3.26 10^6/uL (4.5-5.90); Red Cell Distribution Width 14.5 % (11.8-14.3); White Blood Cell 21.5 10^3/uL (4.4-10.8)
[2017-11-07 06:36] LABS: Albumin 2.1 g/dL (3.4-5.0); BUN/Creatinine Ratio 33.5; Bilirubin, Total 8.4 mg/dL (0.2-1.0); Calcium 8.3 mg/dL (8.5-10.1); Magnesium 2.5 mg/dL (1.6-2.6); Phosphorus 4.5 mg/dL (2.5-4.90); Potassium 4.2 mmol/L (3.5-5.1); Total Protein 6.2 g/dL (6.4-8.2)
[2017-11-07] MEDS: DOPamine 1600MCG/ML D5W 250 ML IV SCH (07:45)
[2017-11-07] MEDS ORDERED: SODIUM CHLORIDE 0.9% 1,000 ML IV SCH (08:45)
[2017-11-07] MEDS: ALBUMIN 25% 50 ML IV SCH ×2 (09:52→21:31)
[2017-11-07] MEDS: LEVOFLOXACIN 250MG 50 ML IV SCH (09:52)
[2017-11-07] MEDS: PRO-STAT 64 30ML GT SCH ×3 (09:52→22:45)
[2017-11-07] MEDS: AMIODARONE HCL 200 MG TAB PO SCH (09:53)
[2017-11-07] MEDS: PANTOPRAZOLE 40 MG/10 ML VIAL IV SCH ×2 (09:53→21:37)
[2017-11-07] MEDS: CHLORHEXIDINE 0.12% ORAL rinse 473ML MT SCH ×2 (09:53→21:37)
[2017-11-07] MEDS: ENOXAPARIN SOD 30 MG/0.3 ML SYRINGE SC SCH (09:53)
[2017-11-07] MEDS: SODIUM CHLOR 0.9% PF (SALINE LOCK) 10ML VIAL IV SCH ×2 (09:53→21:37)
[2017-11-07] MEDS: INSULIN DETEMIR(LEVEMIR) 1unit/0.01ml Soln (100units/ml) SC SCH ×2 (10:05→22:00)
[2017-11-07] MEDS: PROPOFOL 100 ML IV SCH (11:07)
[2017-11-07] MEDS: NOREPINEPHRINE 8 MG/250ML KIT 250 ML IV SCH (11:07)
[2017-11-07] MEDS: PHENYLEPHRINE IV 250 ML IV SCH (11:07)
[2017-11-07] MEDS: D5W 5% IV SCH (12:30)
[2017-11-07] MEDS: MICAFUNGIN SODIUM IV SCH (12:30)
[2017-11-07 12:43] LABS: % Iron Saturation 30.1 % (20-55)
[2017-11-07] MEDS ORDERED: SODIUM BICARBONATE 8.4 % INJ 50ML VIAL IV ONE (12:45)
[2017-11-07] MEDS: fentaNYL Drip 2500mCg/250mlNS 250 ML IV SCH (14:09)
[2017-11-07] MEDS: MIDAZOLAM DRIP 50 mg/50mL 50 ML IV SCH (16:16)
[2017-11-07] MEDS: SODIUM CHLORIDE 0.9% 500 ML IV SCH (16:16)
[2017-11-07 16:28] LABS: BUN/Creatinine Ratio 31.2; Calcium 7.7 mg/dL (8.5-10.1); Potassium 3.9 mmol/L (3.5-5.1)
[2017-11-07] MEDS ORDERED: TPN PER PHARMACY IV NR ×14 (20:00)
[2017-11-08] VITALS (112 sets, daily range): BP systolic 94–167; BP diastolic 39–120
[2017-11-08] MEDS: ACCU-CHEK COMFORT CURVE STRIP VI SCH ×5 (00:20→23:43)
[2017-11-08] MEDS: fentaNYL Drip 2500mCg/250mlNS 250 ML IV SCH (01:07)
[2017-11-08] MEDS: PROPOFOL 100 ML IV SCH ×3 (01:30→22:56)
[2017-11-08] MEDS: IPRATROPIUM BROM 0.5 MG/2.5ML INH SOL NEB SCH ×6 (01:59→22:31)
[2017-11-08] MEDS: LINEZOLID 600MG/300ML 300 ML IV SCH ×2 (02:30→15:56)
[2017-11-08] MEDS: METOPROLOL TARTRATE 1MG/1ML-5ML VIAL IV SCH ×4 (03:30→21:57)
[2017-11-08 04:34] LABS: Basophils # (auto) 0.1 uL; Basophils % (auto) 0.7 % (0.0-2.0); Eosinophils # (auto) 0.8 uL; Eosinophils % (auto) 4.5 % (0.0-7.0); Hematocrit 25.3 % (41.0-53.0); Hemoglobin 8.6 g/dL (13.5-17.5); Lymphocytes # (auto) 0.9 uL; Lymphocytes % (auto) 4.9 % (10.0-50.0); Mean Corpuscular Hemoglobin 30.9 pg (28.0-32.0); Mean Corpuscular Volume 90.6 fL (80.0-100.0); Monocytes # (auto) 1.4 uL; Monocytes % (auto) 7.8 % (0.0-12.0); Neutrophils # (auto) 14.7 uL; Neutrophils % (auto) 82.1 % (37.0-80.0); Platelet Count (auto) 182 10^3/uL (140-450); Red Blood Cells 2.79 10^6/uL (4.5-5.90); Red Cell Distribution Width 14.7 % (11.8-14.3); White Blood Cell 17.9 10^3/uL (4.4-10.8)
[2017-11-08 05:10] LABS: Albumin 2.1 g/dL (3.4-5.0); BUN/Creatinine Ratio 34.4; Bilirubin, Total 8.3 mg/dL (0.2-1.0); Calcium 8.3 mg/dL (8.5-10.1); Magnesium 2.4 mg/dL (1.6-2.6); Phosphorus 4.4 mg/dL (2.5-4.90); Potassium 3.9 mmol/L (3.5-5.1); Pre Albumin 11.3 mg/dL (20.0-40.0)
[2017-11-08] MEDS: InsuLIN REG 1unit/0.01ml Soln (100units/ml) SC SCH ×5 (06:00→23:43)
[2017-11-08] MEDS: ACETYLCYSTEINE 10 %(100MG/ML) SOL 4ML NEB SCH ×3 (06:03→22:31)
[2017-11-08] MEDS: METOCLOPRAMIDE HCL 5MG/ml INJ 2ml VIAL IV SCH ×3 (06:08→21:57)
[2017-11-08] MEDS: MEROPENEM 1gm/20ml IVPUSH 20 ML IV SCH ×2 (06:08→18:00)
[2017-11-08] MEDS: SODIUM CHLORIDE 0.9% 1,000 ML IV SCH (08:54)
[2017-11-08] MEDS: PANTOPRAZOLE 40 MG/10 ML VIAL IV SCH ×2 (09:47→21:57)
[2017-11-08] MEDS: PRO-STAT 64 30ML GT SCH (09:47)
[2017-11-08] MEDS: ALBUMIN 25% 50 ML IV SCH (09:47)
[2017-11-08] MEDS: LEVOFLOXACIN 250MG 50 ML IV SCH (09:47)
[2017-11-08] MEDS: AMIODARONE HCL 900 MG in DEXTROSE 500 ML IV SCH (09:47)
[2017-11-08] MEDS: CHLORHEXIDINE 0.12% ORAL rinse 473ML MT SCH ×2 (09:48→21:57)
[2017-11-08] MEDS: AMIODARONE HCL 200 MG TAB PO SCH (09:48)
[2017-11-08] MEDS: SODIUM CHLOR 0.9% PF (SALINE LOCK) 10ML VIAL IV SCH ×2 (09:48→21:57)
[2017-11-08] MEDS: INSULIN DETEMIR(LEVEMIR) 1unit/0.01ml Soln (100units/ml) SC SCH ×2 (10:00→21:57)
[2017-11-08 10:05] LABS: Basophils # (auto) 0.1 uL; Basophils % (auto) 0.6 % (0.0-2.0); Eosinophils # (auto) 0.8 uL; Eosinophils % (auto) 4.9 % (0.0-7.0); Hematocrit 24.9 % (41.0-53.0); Hemoglobin 8.6 g/dL (13.5-17.5); Lymphocytes # (auto) 0.8 uL; Lymphocytes % (auto) 4.7 % (10.0-50.0); Mean Corpuscular Hemoglobin 31.5 pg (28.0-32.0); Mean Corpuscular Hgb Conc. 34.4 g/dL (32.0-36.0); Mean Corpuscular Volume 91.5 fL (80.0-100.0); Monocytes # (auto) 1.2 uL; Monocytes % (auto) 6.9 % (0.0-12.0); Neutrophils % (auto) 82.9 % (37.0-80.0); Nucleated Red Blood Cells % 0.3 %; Platelet Count (auto) 176 10^3/uL (140-450); Red Blood Cells 2.72 10^6/uL (4.5-5.90); Red Cell Distribution Width 14.9 % (11.8-14.3); White Blood Cell 16.9 10^3/uL (4.4-10.8)
[2017-11-08] MEDS ORDERED: LORazepam 2MG/ML-1ML VIAL IV PRN (10:15)
[2017-11-08] MEDS ORDERED: FUROSEMIDE 40 MG/4 ML VIAL IV ONE (10:45)
[2017-11-08] MEDS: PHENYLEPHRINE IV 250 ML IV SCH (11:19)
[2017-11-08] MEDS: NOREPINEPHRINE 8 MG/250ML KIT 250 ML IV SCH (11:25)
[2017-11-08] MEDS ORDERED: FUROSEMIDE 20 MG/2 ML VIAL IV ONE (11:45)
[2017-11-08] MEDS: MICAFUNGIN SODIUM IV SCH (12:17)
[2017-11-08] MEDS: D5W 5% IV SCH (12:17)
[2017-11-08] MEDS ORDERED: SODIUM FERR GLUC 62.5MG/5ML 125 MG in SODIUM CHL 0.9% 100 ML IV ONE (12:30)
[2017-11-08] MEDS: DOPamine 1600MCG/ML D5W 250 ML IV SCH (15:55)
[2017-11-08] MEDS: SODIUM CHLORIDE 0.9% 500 ML IV SCH (15:56)
[2017-11-08 17:39] LABS: BUN/Creatinine Ratio 34.2; Calcium 7.8 mg/dL (8.5-10.1); Potassium 3.8 mmol/L (3.5-5.1)
[2017-11-08] MEDS ORDERED: POTASSIUM CHL 20MEQ/50ML 50 ML IV ONE (19:00)
[2017-11-08] MEDS: SODIUM FERR GLUC 62.5MG/5ML 125 MG in SODIUM CHL 0.9% 100 ML IV SCH (19:36)
[2017-11-08] MEDS ORDERED: TPN PER PHARMACY IV NR ×8 (20:00)
[2017-11-08] MEDS ORDERED: ALBUMIN 25% 50 ML IV SCH (22:00)
[2017-11-09] VITALS (104 sets, daily range): BP systolic 125–177; BP diastolic 56–88
[2017-11-09] MEDS: IPRATROPIUM BROM 0.5 MG/2.5ML INH SOL NEB SCH ×6 (02:15→21:54)
[2017-11-09] MEDS: LINEZOLID 600MG/300ML 300 ML IV SCH ×2 (02:45→17:23)
[2017-11-09] MEDS: ACETAMINOPHEN 650 mg PER 20 mL UD GT PRN (03:17)
[2017-11-09] MEDS: METOPROLOL TARTRATE 1MG/1ML-5ML VIAL IV SCH ×4 (03:58→21:31)
[2017-11-09 04:15] LABS: Hemoglobin 9.5 g/dL (13.5-17.5); Mean Corpuscular Hemoglobin 30.1 pg (28.0-32.0); Mean Corpuscular Hgb Conc. 33.8 g/dL (32.0-36.0); Mean Corpuscular Volume 89.2 fL (80.0-100.0); Platelet Count (auto) 175 10^3/uL (140-450); Red Blood Cells 3.15 10^6/uL (4.5-5.90); Red Cell Distribution Width 15.1 % (11.8-14.3); White Blood Cell 17.1 10^3/uL (4.4-10.8)
[2017-11-09 04:44] LABS: Basophils % (manual) 0 (0.0-2.0); Blast Cells 0; Promyelocytes % 0; Reactive Lymphocytes 0
[2017-11-09 04:45] LABS: Albumin 2.1 g/dL (3.4-5.0); BUN/Creatinine Ratio 33.3; Bilirubin, Total 8.8 mg/dL (0.2-1.0); Calcium 8.2 mg/dL (8.5-10.1); Magnesium 2.1 mg/dL (1.6-2.6); Phosphorus 4.3 mg/dL (2.5-4.90); Potassium 3.7 mmol/L (3.5-5.1); Total Protein 6.3 g/dL (6.4-8.2)
[2017-11-09] MEDS ORDERED: MEROPENEM 1GM IVPB 100 ML IV ONE (05:29)
[2017-11-09] MEDS: METOCLOPRAMIDE HCL 5MG/ml INJ 2ml VIAL IV SCH ×3 (05:30→21:31)
[2017-11-09] MEDS: ACCU-CHEK COMFORT CURVE STRIP VI SCH ×3 (05:30→17:53)
[2017-11-09] MEDS: InsuLIN REG 1unit/0.01ml Soln (100units/ml) SC SCH ×3 (05:30→17:53)
[2017-11-09] MEDS: MEROPENEM 1gm/20ml IVPUSH 20 ML IV SCH ×2 (05:30→18:31)
[2017-11-09 05:37] LABS: Band Neutrophils % (manual) 2; Eosinophils % (manual) 8 (0-7); Lymphocytes % (manual) 4 (10.0-50.0); Metamyelocytes % 1; Monocytes % (manual) 9 (0-12); Myelocytes % 1
[2017-11-09] MEDS: ACETYLCYSTEINE 10 %(100MG/ML) SOL 4ML NEB SCH ×3 (06:46→21:55)
[2017-11-09] MEDS: DOPamine 1600MCG/ML D5W 250 ML IV SCH ×2 (07:45→17:25)
[2017-11-09] MEDS: PROPOFOL 100 ML IV SCH ×3 (09:26→17:23)
[2017-11-09] MEDS: SODIUM CHLORIDE 0.9% 1,000 ML IV SCH (09:27)
[2017-11-09] MEDS ORDERED: FUROSEMIDE 40 MG/4 ML VIAL IV SCH (10:00)
[2017-11-09] MEDS: CHLORHEXIDINE 0.12% ORAL rinse 473ML MT SCH ×2 (10:00→21:31)
[2017-11-09] MEDS: PANTOPRAZOLE 40 MG/10 ML VIAL IV SCH ×2 (10:00→21:31)
[2017-11-09] MEDS: LEVOFLOXACIN 250MG 50 ML IV SCH (10:00)
[2017-11-09] MEDS: SODIUM CHLOR 0.9% PF (SALINE LOCK) 10ML VIAL IV SCH ×2 (10:00→21:31)
[2017-11-09] MEDS ORDERED: LINEZOLID 600MG/300ML 300 ML IV SCH (10:30)
[2017-11-09] MEDS: FUROSEMIDE 20 MG/2 ML VIAL IV SCH ×2 (10:30→17:52)
[2017-11-09] MEDS ORDERED: POTASSIUM CHL 10% (20 MEQ/15ML) 15ml ORAL SOLN GT ONE (10:45)
[2017-11-09] MEDS ORDERED: POTASSIUM CHL 20MEQ/50ML 100 ML IV ONE (10:50)
[2017-11-09] MEDS: MICAFUNGIN SODIUM IV SCH (11:08)
[2017-11-09] MEDS: D5W 5% IV SCH (11:08)
[2017-11-09] MEDS: AMIODARONE HCL 900 MG in DEXTROSE 500 ML IV SCH (11:14)
[2017-11-09] MEDS: PHENYLEPHRINE IV 250 ML IV SCH (11:19)
[2017-11-09] MEDS: NOREPINEPHRINE 8 MG/250ML KIT 250 ML IV SCH (11:25)
[2017-11-09] MEDS: INSULIN DETEMIR(LEVEMIR) 1unit/0.01ml Soln (100units/ml) SC SCH ×2 (11:25→21:32)
[2017-11-09] MEDS ORDERED: SODIUM FERR GLUC 62.5MG/5ML 125 MG in SODIUM CHL 0.9% 100 ML IV SCH (12:00)
[2017-11-09] MEDS: POTASSIUM CHL 20MEQ/50ML 50 ML IV PRN (12:34)
[2017-11-09] MEDS: hydrALAZINE HCL 20 MG/ML VL IV PRN ×2 (13:34→23:07)
[2017-11-09] MEDS: fentaNYL Drip 2500mCg/250mlNS 250 ML IV SCH (14:00)
[2017-11-09] MEDS ORDERED: Fibersource Hn 1 Liter GT SCH (14:56)
[2017-11-09] MEDS: SODIUM CHLORIDE 0.9% 500 ML IV SCH (16:30)
[2017-11-09] MEDS: SODIUM FERR GLUC 62.5MG/5ML 125 MG in SODIUM CHL 0.9% 100 ML IV SCH (17:52)
[2017-11-09 17:53] LABS: BUN/Creatinine Ratio 32.9; Calcium 7.5 mg/dL (8.5-10.1); Potassium 4.7 mmol/L (3.5-5.1)
[2017-11-09] MEDS: NICARDIPINE 25MG/250ML BAG KIT 250 ML IV SCH ×4 (19:35→23:22)
[2017-11-09] MEDS ORDERED: TPN PER PHARMACY IV NR ×9 (20:00)
[2017-11-09] MEDS: MORPHINE SULFATE 4 MG/ML SYR/VIAL IV PRN (23:19)
[2017-11-10] VITALS (108 sets, daily range): BP systolic 116–172; BP diastolic 53–74
[2017-11-10] MEDS: ACCU-CHEK COMFORT CURVE STRIP VI SCH ×5 (00:28→23:50)
[2017-11-10] MEDS: ACETAMINOPHEN 650 mg PER 20 mL UD GT PRN (00:35)
[2017-11-10] MEDS ORDERED: MEPERIDINE HCL (25 MG/ML) 1ML VIAL IV ONE (00:45)
[2017-11-10] MEDS: IPRATROPIUM BROM 0.5 MG/2.5ML INH SOL NEB SCH ×6 (01:57→21:50)
[2017-11-10] MEDS: fentaNYL Drip 2500mCg/250mlNS 250 ML IV SCH ×2 (01:58→13:14)
[2017-11-10] MEDS: PROPOFOL 100 ML IV SCH ×3 (01:59→23:50)
[2017-11-10] MEDS: LINEZOLID 600MG/300ML 300 ML IV SCH ×2 (03:15→14:52)
[2017-11-10] MEDS: METOPROLOL TARTRATE 1MG/1ML-5ML VIAL IV SCH ×4 (03:46→21:43)
[2017-11-10 03:55] LABS: Hematocrit 28.1 % (41.0-53.0); Hemoglobin 9.3 g/dL (13.5-17.5); Mean Corpuscular Hemoglobin 29.4 pg (28.0-32.0); Mean Corpuscular Volume 89.3 fL (80.0-100.0); Platelet Count (auto) 202 10^3/uL (140-450); Red Blood Cells 3.15 10^6/uL (4.5-5.90); Red Cell Distribution Width 15.1 % (11.8-14.3)
[2017-11-10 04:10] LABS: Albumin 1.8 g/dL (3.4-5.0); BUN/Creatinine Ratio 33.6; Calcium 8.1 mg/dL (8.5-10.1); Phosphorus 4.3 mg/dL (2.5-4.90); Potassium 4.1 mmol/L (3.5-5.1); Total Protein 6.3 g/dL (6.4-8.2)
[2017-11-10 04:35] LABS: Basophils % (manual) 0 (0.0-2.0); Blast Cells 0; Myelocytes % 0; Promyelocytes % 0; Reactive Lymphocytes 0
[2017-11-10] MEDS: ACETYLCYSTEINE 10 %(100MG/ML) SOL 4ML NEB SCH ×3 (05:35→21:50)
[2017-11-10] MEDS: MEROPENEM 1gm/20ml IVPUSH 20 ML IV SCH ×2 (05:43→18:30)
[2017-11-10] MEDS: METOCLOPRAMIDE HCL 5MG/ml INJ 2ml VIAL IV SCH ×3 (05:43→21:43)
[2017-11-10] MEDS: FUROSEMIDE 20 MG/2 ML VIAL IV SCH ×3 (05:43→18:27)
[2017-11-10] MEDS: InsuLIN REG 1unit/0.01ml Soln (100units/ml) SC SCH ×5 (05:43→23:50)
[2017-11-10] MEDS: MORPHINE SULFATE 4 MG/ML SYR/VIAL IV PRN ×2 (05:46→10:11)
[2017-11-10 06:37] LABS: Band Neutrophils % (manual) 5; Eosinophils % (manual) 1 (0-7); Lymphocytes % (manual) 5 (10.0-50.0); Metamyelocytes % 2; Monocytes % (manual) 12 (0-12)
[2017-11-10] MEDS: NICARDIPINE 25MG/250ML BAG KIT 250 ML IV SCH ×4 (06:54→23:08)
[2017-11-10] MEDS: INSULIN DETEMIR(LEVEMIR) 1unit/0.01ml Soln (100units/ml) SC SCH ×2 (09:55→22:08)
[2017-11-10] MEDS: PANTOPRAZOLE 40 MG/10 ML VIAL IV SCH ×2 (09:59→21:43)
[2017-11-10] MEDS: LEVOFLOXACIN 250MG 50 ML IV SCH (10:00)
[2017-11-10] MEDS: SODIUM CHLOR 0.9% PF (SALINE LOCK) 10ML VIAL IV SCH ×2 (10:00→21:43)
[2017-11-10] MEDS: CHLORHEXIDINE 0.12% ORAL rinse 473ML MT SCH ×2 (10:01→21:43)
[2017-11-10] MEDS: D5W 5% IV SCH (11:15)
[2017-11-10] MEDS: MICAFUNGIN SODIUM IV SCH (11:15)
[2017-11-10] MEDS: PHENYLEPHRINE IV 250 ML IV SCH (11:19)
[2017-11-10] MEDS: NOREPINEPHRINE 8 MG/250ML KIT 250 ML IV SCH (11:25)
[2017-11-10 15:15] LABS: Calcium 6.5 mg/dL (8.5-10.1); Potassium 4.4 mmol/L (3.5-5.1)
[2017-11-10 15:20] LABS: BUN/Creatinine Ratio 33.5
[2017-11-10] MEDS: SODIUM CHLORIDE 0.9% 500 ML IV SCH (16:30)
[2017-11-10] MEDS: DEXMEDETOMIDINE HCL 400 MCG in D5W 5% 96 ML IV SCH (17:00)
[2017-11-10] MEDS: AMIODARONE HCL 900 MG in DEXTROSE 500 ML IV SCH (17:45)
[2017-11-10] MEDS: SODIUM FERR GLUC 62.5MG/5ML 125 MG in SODIUM CHL 0.9% 100 ML IV SCH (18:30)
[2017-11-10] MEDS ORDERED: TPN PER PHARMACY IV NR ×9 (20:00)
[2017-11-11] VITALS (101 sets, daily range): BP systolic 128–176; BP diastolic 56–83
[2017-11-11] MEDS: fentaNYL Drip 2500mCg/250mlNS 250 ML IV SCH (01:50)
[2017-11-11] MEDS: IPRATROPIUM BROM 0.5 MG/2.5ML INH SOL NEB SCH ×6 (02:21→22:12)
[2017-11-11] MEDS: LINEZOLID 600MG/300ML 300 ML IV SCH ×2 (03:02→17:15)
[2017-11-11] MEDS: NICARDIPINE 25MG/250ML BAG KIT 250 ML IV SCH ×5 (03:41→21:00)
[2017-11-11] MEDS: METOPROLOL TARTRATE 1MG/1ML-5ML VIAL IV SCH ×4 (03:58→21:41)
[2017-11-11 04:04] LABS: Basophils # (auto) 0.1 uL; Basophils % (auto) 0.4 % (0.0-2.0); Eosinophils # (auto) 0.6 uL; Eosinophils % (auto) 3.7 % (0.0-7.0); Hematocrit 25.7 % (41.0-53.0); Hemoglobin 8.7 g/dL (13.5-17.5); Lymphocytes # (auto) 0.6 uL; Mean Corpuscular Hemoglobin 30.4 pg (28.0-32.0); Mean Corpuscular Hgb Conc. 33.9 g/dL (32.0-36.0); Mean Corpuscular Volume 89.6 fL (80.0-100.0); Monocytes # (auto) 1.2 uL; Monocytes % (auto) 7.3 % (0.0-12.0); Neutrophils # (auto) 13.9 uL; Neutrophils % (auto) 84.6 % (37.0-80.0); Platelet Count (auto) 205 10^3/uL (140-450); Red Blood Cells 2.87 10^6/uL (4.5-5.90); White Blood Cell 16.4 10^3/uL (4.4-10.8)
[2017-11-11 04:41] LABS: Albumin 1.8 g/dL (3.4-5.0); BUN/Creatinine Ratio 33.2; Bilirubin, Total 8.1 mg/dL (0.2-1.0); Calcium 7.8 mg/dL (8.5-10.1); Magnesium 2.1 mg/dL (1.6-2.6); Phosphorus 4.3 mg/dL (2.5-4.90); Potassium 3.9 mmol/L (3.5-5.1); Total Protein 6.4 g/dL (6.4-8.2)
[2017-11-11] MEDS: FUROSEMIDE 20 MG/2 ML VIAL IV SCH ×2 (05:33→17:50)
[2017-11-11] MEDS: InsuLIN REG 1unit/0.01ml Soln (100units/ml) SC SCH ×4 (05:33→23:45)
[2017-11-11] MEDS: MEROPENEM 1gm/20ml IVPUSH 20 ML IV SCH ×2 (05:33→19:52)
[2017-11-11] MEDS: ACCU-CHEK COMFORT CURVE STRIP VI SCH ×4 (05:33→23:45)
[2017-11-11] MEDS: METOCLOPRAMIDE HCL 5MG/ml INJ 2ml VIAL IV SCH ×3 (05:33→21:41)
[2017-11-11] MEDS: POTASSIUM CHL 20MEQ/50ML 50 ML IV PRN ×2 (05:35→09:34)
[2017-11-11] MEDS ORDERED: ACETYLCYSTEINE 20%(200MG/ML) SOL 4ML ONE (07:29)
[2017-11-11] MEDS: ACETYLCYSTEINE 10 %(100MG/ML) SOL 4ML NEB SCH ×3 (07:46→18:16)
[2017-11-11] MEDS: DOPamine 1600MCG/ML D5W 250 ML IV SCH (08:15)
[2017-11-11] MEDS: SODIUM CHLOR 0.9% PF (SALINE LOCK) 10ML VIAL IV SCH ×2 (10:00→21:41)
[2017-11-11] MEDS: PANTOPRAZOLE 40 MG/10 ML VIAL IV SCH ×2 (10:06→21:41)
[2017-11-11] MEDS: CHLORHEXIDINE 0.12% ORAL rinse 473ML MT SCH ×2 (10:06→21:41)
[2017-11-11] MEDS: LEVOFLOXACIN 250MG 50 ML IV SCH (10:07)
[2017-11-11] MEDS: INSULIN DETEMIR(LEVEMIR) 1unit/0.01ml Soln (100units/ml) SC SCH ×2 (10:07→21:54)
[2017-11-11] MEDS ORDERED: METHYLENE BLUE 0.5% 5MG/ML 10ml AMP IV ONE ×2 (10:30→10:45)
[2017-11-11] MEDS ORDERED: fentaNYL CITRATE 100 MCG/2 ML VL ONE (10:53)
[2017-11-11] MEDS ORDERED: NALOXONE HCL 0.4 MG/ML VIAL ONE (10:53)
[2017-11-11] MEDS ORDERED: diphenhdrAMINE HCL 50 MG/1 ML VL ONE (10:53)
[2017-11-11] MEDS ORDERED: MIDAZOLAM HCL 5 MG/ML-1ML VIAL ONE (10:53)
[2017-11-11] MEDS ORDERED: SODIUM CHLORIDE LOCK 10 ML ONE (10:53)
[2017-11-11] MEDS ORDERED: FLUMAZENIL 0.1 MG/ML INJ 10ML MDV IV ONE (10:53)
[2017-11-11] MEDS ORDERED: EPINEPHrine HCL 1 MG/10 ML SYRG ONE (10:53)
[2017-11-11] MEDS ORDERED: BENZOCAINE (DENTAL) 20 % SPRAY 60ML MT ONE (10:53)
[2017-11-11] MEDS: PHENYLEPHRINE IV 250 ML IV SCH (11:19)
[2017-11-11] MEDS: NOREPINEPHRINE 8 MG/250ML KIT 250 ML IV SCH (11:25)
[2017-11-11] MEDS: DEXMEDETOMIDINE HCL 400 MCG in D5W 5% 96 ML IV SCH (11:40)
[2017-11-11] MEDS ORDERED: fentaNYL CITRATE 100 MCG/2 ML VL IV PRN (13:00)
[2017-11-11] MEDS ORDERED: TPN PER PHARMACY 0 ML IV SCH (13:00)
[2017-11-11] MEDS ORDERED: MORPHINE SULF INJ 2 MG/ML SYRINGE 1ML ONE ×3 (13:34→21:36)
[2017-11-11] MEDS: MORPHINE SULFATE 4 MG/ML SYR/VIAL IV PRN ×2 (13:45→21:41)
[2017-11-11] MEDS: ALBUMIN 25% 100 ML IV SCH ×2 (14:00→21:54)
[2017-11-11] MEDS: D5W 5% IV SCH (15:30)
[2017-11-11] MEDS: MICAFUNGIN SODIUM IV SCH (15:30)
[2017-11-11] MEDS: SODIUM CHLORIDE 0.9% 500 ML IV SCH (16:30)
[2017-11-11 17:41] LABS: INR 1.2 (0.9-1.15); Prothrombin Time 13.1 sec (9.37-12.3)
[2017-11-11] MEDS: SODIUM FERR GLUC 62.5MG/5ML 125 MG in SODIUM CHL 0.9% 100 ML IV SCH (19:52)
[2017-11-11] MEDS: AMIODARONE HCL 900 MG in DEXTROSE 500 ML IV SCH (19:52)
[2017-11-11] MEDS ORDERED: TPN PER PHARMACY IV NR ×10 (20:00)
[2017-11-11] MEDS: PROPOFOL 100 ML IV SCH (21:00)
[2017-11-12] VITALS (108 sets, daily range): BP systolic 116–168; BP diastolic 46–95
[2017-11-12] MEDS: NICARDIPINE 25MG/250ML BAG KIT 250 ML IV SCH ×4 (01:00→22:01)
[2017-11-12] MEDS: PROPOFOL 100 ML IV SCH ×2 (02:00→20:25)
[2017-11-12] MEDS: IPRATROPIUM BROM 0.5 MG/2.5ML INH SOL NEB SCH ×6 (02:05→22:36)
[2017-11-12] MEDS: AMIODARONE HCL 900 MG in DEXTROSE 500 ML IV SCH (02:59)
[2017-11-12] MEDS: fentaNYL Drip 2500mCg/250mlNS 250 ML IV SCH ×2 (02:59→17:13)
[2017-11-12] MEDS: LINEZOLID 600MG/300ML 300 ML IV SCH ×2 (02:59→15:00)
[2017-11-12 03:29] LABS: Eosinophils # (auto) 0.4 uL; Hemoglobin 7.7 g/dL (13.5-17.5); Lymphocytes # (auto) 0.8 uL; Monocytes # (auto) 1.2 uL
[2017-11-12 03:32] LABS: Basophils # (auto) 0.1 uL; Basophils % (auto) 0.4 % (0.0-2.0); Eosinophils % (auto) 3.4 % (0.0-7.0); Hematocrit 22.3 % (41.0-53.0); Lymphocytes % (auto) 6.6 % (10.0-50.0); Mean Corpuscular Hgb Conc. 34.4 g/dL (32.0-36.0); Mean Corpuscular Volume 90.1 fL (80.0-100.0); Monocytes % (auto) 9.7 % (0.0-12.0); Neutrophils # (auto) 9.8 uL; Neutrophils % (auto) 79.9 % (37.0-80.0); Platelet Count (auto) 182 10^3/uL (140-450); Red Blood Cells 2.48 10^6/uL (4.5-5.90); Red Cell Distribution Width 14.7 % (11.8-14.3); White Blood Cell 12.2 10^3/uL (4.4-10.8)
[2017-11-12 03:59] LABS: Albumin 2.3 g/dL (3.4-5.0); BUN/Creatinine Ratio 33.1; Bilirubin, Total 9.1 mg/dL (0.2-1.0); Calcium 7.8 mg/dL (8.5-10.1); Magnesium 1.9 mg/dL (1.6-2.6); Phosphorus 3.7 mg/dL (2.5-4.90); Potassium 3.8 mmol/L (3.5-5.1); Total Protein 6.4 g/dL (6.4-8.2)
[2017-11-12] MEDS ORDERED: MORPHINE SULF INJ 2 MG/ML SYRINGE 1ML ONE (04:01)
[2017-11-12] MEDS: METOPROLOL TARTRATE 1MG/1ML-5ML VIAL IV SCH ×4 (04:13→22:08)
[2017-11-12] MEDS: MORPHINE SULFATE 4 MG/ML SYR/VIAL IV PRN (04:14)
[2017-11-12] MEDS: ALBUMIN 25% 100 ML IV SCH ×3 (05:56→22:07)
[2017-11-12] MEDS: ACCU-CHEK COMFORT CURVE STRIP VI SCH ×3 (05:57→18:22)
[2017-11-12] MEDS: InsuLIN REG 1unit/0.01ml Soln (100units/ml) SC SCH ×3 (05:57→18:00)
[2017-11-12] MEDS: METOCLOPRAMIDE HCL 5MG/ml INJ 2ml VIAL IV SCH ×3 (05:57→22:08)
[2017-11-12] MEDS: FUROSEMIDE 20 MG/2 ML VIAL IV SCH (05:57)
[2017-11-12] MEDS: MEROPENEM 1gm/20ml IVPUSH 20 ML IV SCH ×2 (05:57→18:21)
[2017-11-12] MEDS: ACETYLCYSTEINE 10 %(100MG/ML) SOL 4ML NEB SCH ×2 (05:58→22:36)
[2017-11-12] MEDS: DOPamine 1600MCG/ML D5W 250 ML IV SCH (07:45)
[2017-11-12] MEDS: INSULIN DETEMIR(LEVEMIR) 1unit/0.01ml Soln (100units/ml) SC SCH ×2 (10:00→22:18)
[2017-11-12] MEDS: SODIUM CHLOR 0.9% PF (SALINE LOCK) 10ML VIAL IV SCH ×3 (10:14→22:08)
[2017-11-12] MEDS: PANTOPRAZOLE 40 MG/10 ML VIAL IV SCH ×2 (10:14→22:08)
[2017-11-12] MEDS: DEXMEDETOMIDINE HCL 400 MCG in D5W 5% 96 ML IV SCH (10:15)
[2017-11-12] MEDS: CHLORHEXIDINE 0.12% ORAL rinse 473ML MT SCH ×2 (10:15→22:08)
[2017-11-12] MEDS ORDERED: HYDROmorphone HCL 2 MG/ML VL IV PRN ×2 (11:00)
[2017-11-12] MEDS ORDERED: NALOXONE HCL 0.4 MG/ML VIAL IV PRN (11:00)
[2017-11-12] MEDS ORDERED: ONDANSETRON HCL 4 MG/2 ML VIAL IV ONE (11:00)
[2017-11-12] MEDS ORDERED: ACCU-CHEK COMFORT CURVE STRIP VI ONE (11:00)
[2017-11-12] MEDS: PHENYLEPHRINE IV 250 ML IV SCH (11:19)
[2017-11-12] MEDS: NOREPINEPHRINE 8 MG/250ML KIT 250 ML IV SCH (11:25)
[2017-11-12] MEDS ORDERED: ROCURONIUM 10MG/ML 10ML VIAL IV ONE (11:44)
[2017-11-12] MEDS ORDERED: fentaNYL CITRATE 100 MCG/2 ML VL ONE (11:44)
[2017-11-12] MEDS ORDERED: MIDAZOLAM HCL 1MG/1ML-2 ML VIAL ONE (12:14)
[2017-11-12] MEDS ORDERED: DEXTROSE (50%) 50ML SYRG IV PRN (13:30)
[2017-11-12] MEDS ORDERED: FUROSEMIDE 100 MG/10ML VIAL IV ONE ×2 (14:00→19:00)
[2017-11-12] MEDS: LEVOFLOXACIN 250MG 50 ML IV SCH (14:19)
[2017-11-12 15:15] LABS: Hematocrit 22.8 % (41.0-53.0); Hemoglobin 7.8 g/dL (13.5-17.5)
[2017-11-12] MEDS: SODIUM CHL 0.9% IV SCH (16:00)
[2017-11-12] MEDS: VORICONAZOLE IV SCH (16:00)
[2017-11-12] MEDS ORDERED: LIDOCAINE 1% HCL (LOCAL ANESTH.) INJ 20ML MDV ID ONE (16:30)
[2017-11-12] MEDS: SODIUM CHLORIDE 0.9% 500 ML IV SCH (16:30)
[2017-11-12] MEDS: SODIUM FERR GLUC 62.5MG/5ML 125 MG in SODIUM CHL 0.9% 100 ML IV SCH (18:20)
[2017-11-12] MEDS ORDERED: TPN PER PHARMACY IV NR ×11 (20:00)
[2017-11-13] VITALS (105 sets, daily range): BP systolic 104–153; BP diastolic 44–82
[2017-11-13] MEDS: ACCU-CHEK COMFORT CURVE STRIP VI SCH ×5 (00:20→23:58)
[2017-11-13] MEDS: NICARDIPINE 25MG/250ML BAG KIT 250 ML IV SCH ×3 (01:08→07:57)
[2017-11-13] MEDS: PROPOFOL 100 ML IV SCH ×5 (01:09→23:16)
[2017-11-13] MEDS: IPRATROPIUM BROM 0.5 MG/2.5ML INH SOL NEB SCH ×6 (02:07→22:06)
[2017-11-13] MEDS: LINEZOLID 600MG/300ML 300 ML IV SCH ×2 (03:04→15:09)
[2017-11-13 04:02] LABS: Basophils # (auto) 0.1 uL; Basophils % (auto) 0.4 % (0.0-2.0); Eosinophils % (auto) 6.3 % (0.0-7.0); Hematocrit 27.5 % (41.0-53.0); Hemoglobin 9.2 g/dL (13.5-17.5); Mean Corpuscular Hgb Conc. 33.6 g/dL (32.0-36.0); Mean Corpuscular Volume 89.4 fL (80.0-100.0); Monocytes # (auto) 1.5 uL; Monocytes % (auto) 9.3 % (0.0-12.0); Neutrophils # (auto) 12.9 uL; Platelet Count (auto) 180 10^3/uL (140-450); Red Blood Cells 3.07 10^6/uL (4.5-5.90); Red Cell Distribution Width 15.9 % (11.8-14.3); White Blood Cell 16.6 10^3/uL (4.4-10.8)
[2017-11-13] MEDS: METOPROLOL TARTRATE 1MG/1ML-5ML VIAL IV SCH ×4 (04:12→22:00)
[2017-11-13] MEDS: fentaNYL Drip 2500mCg/250mlNS 250 ML IV SCH (04:15)
[2017-11-13] MEDS: VORICONAZOLE IV SCH ×2 (04:30→17:08)
[2017-11-13] MEDS: SODIUM CHL 0.9% IV SCH ×2 (04:30→17:08)
[2017-11-13 04:40] LABS: Albumin 2.9 g/dL (3.4-5.0); BUN/Creatinine Ratio 31.1; Calcium 7.9 mg/dL (8.5-10.1); Phosphorus 5.4 mg/dL (2.5-4.90); Potassium 3.7 mmol/L (3.5-5.1)
[2017-11-13] MEDS: ACETYLCYSTEINE 10 %(100MG/ML) SOL 4ML NEB SCH ×3 (05:47→22:07)
[2017-11-13] MEDS: InsuLIN REG 1unit/0.01ml Soln (100units/ml) SC SCH ×5 (06:00→23:58)
[2017-11-13] MEDS: METOCLOPRAMIDE HCL 5MG/ml INJ 2ml VIAL IV SCH ×3 (06:26→22:00)
[2017-11-13] MEDS: ALBUMIN 25% 100 ML IV SCH (06:26)
[2017-11-13] MEDS: MEROPENEM 1gm/20ml IVPUSH 20 ML IV SCH ×2 (06:26→18:19)
[2017-11-13] MEDS: DOPamine 1600MCG/ML D5W 250 ML IV SCH (07:45)
[2017-11-13] MEDS: AMIODARONE HCL 900 MG in DEXTROSE 500 ML IV SCH (08:09)
[2017-11-13] MEDS ORDERED: FUROSEMIDE 100 MG/10ML VIAL IV SCH (10:00)
[2017-11-13] MEDS: DEXMEDETOMIDINE HCL 400 MCG in D5W 5% 96 ML IV SCH (10:12)
[2017-11-13] MEDS: INSULIN DETEMIR(LEVEMIR) 1unit/0.01ml Soln (100units/ml) SC SCH ×2 (10:50→22:00)
[2017-11-13] MEDS: LEVOFLOXACIN 250MG 50 ML IV SCH (10:51)
[2017-11-13] MEDS: SODIUM CHLOR 0.9% PF (SALINE LOCK) 10ML VIAL IV SCH ×3 (10:52→22:00)
[2017-11-13] MEDS: CHLORHEXIDINE 0.12% ORAL rinse 473ML MT SCH ×2 (10:52→22:00)
[2017-11-13] MEDS: PANTOPRAZOLE 40 MG/10 ML VIAL IV SCH ×2 (10:52→22:00)
[2017-11-13] MEDS: PHENYLEPHRINE IV 250 ML IV SCH (11:19)
[2017-11-13] MEDS: NOREPINEPHRINE 8 MG/250ML KIT 250 ML IV SCH (11:25)
[2017-11-13] MEDS: FUROSEMIDE INJECTION 500 MG in SODIUM CHL 0.9% 450 ML IV SCH (12:20)
[2017-11-13] MEDS: NS 0.9% IV SCH ×4 (13:00→23:58)
[2017-11-13] MEDS: NICARDIPINE IV SCH ×4 (13:00→23:58)
[2017-11-13] MEDS: SODIUM FERR GLUC 62.5MG/5ML 125 MG in SODIUM CHL 0.9% 100 ML IV SCH (18:30)
[2017-11-13] MEDS ORDERED: TPN PER PHARMACY IV NR ×9 (20:00)
[2017-11-13] MEDS: ACETAMINOPHEN 650 mg PER 20 mL UD GT PRN (20:15)
[2017-11-14] VITALS (106 sets, daily range): BP systolic 102–164; BP diastolic 46–102
[2017-11-14] MEDS: fentaNYL Drip 2500mCg/250mlNS 250 ML IV SCH (02:29)
[2017-11-14] MEDS: IPRATROPIUM BROM 0.5 MG/2.5ML INH SOL NEB SCH ×6 (02:30→22:20)
[2017-11-14] MEDS: LINEZOLID 600MG/300ML 300 ML IV SCH ×2 (02:36→16:45)
[2017-11-14] MEDS: ACETAMINOPHEN 650 mg PER 20 mL UD GT PRN ×3 (04:00→22:56)
[2017-11-14] MEDS: METOPROLOL TARTRATE 1MG/1ML-5ML VIAL IV SCH ×4 (04:19→23:32)
[2017-11-14] MEDS: SODIUM CHL 0.9% IV SCH (04:30)
[2017-11-14] MEDS: VORICONAZOLE IV SCH (04:30)
[2017-11-14] MEDS: NS 0.9% IV SCH ×3 (04:31→18:54)
[2017-11-14] MEDS: NICARDIPINE IV SCH ×3 (04:31→18:54)
[2017-11-14 04:36] LABS: Basophils # (auto) 0.1 uL; Basophils % (auto) 0.4 % (0.0-2.0); Eosinophils # (auto) 0.4 uL; Eosinophils % (auto) 2.5 % (0.0-7.0); Hematocrit 27.5 % (41.0-53.0); Hemoglobin 9.2 g/dL (13.5-17.5); Lymphocytes # (auto) 0.8 uL; Lymphocytes % (auto) 4.4 % (10.0-50.0); Mean Corpuscular Hemoglobin 29.9 pg (28.0-32.0); Mean Corpuscular Hgb Conc. 33.5 g/dL (32.0-36.0); Mean Corpuscular Volume 89.3 fL (80.0-100.0); Monocytes # (auto) 1.6 uL; Monocytes % (auto) 9.3 % (0.0-12.0); Neutrophils # (auto) 14.2 uL; Neutrophils % (auto) 83.4 % (37.0-80.0); Nucleated Red Blood Cells % 0.1 %; Platelet Count (auto) 179 10^3/uL (140-450); Red Blood Cells 3.08 10^6/uL (4.5-5.90); Red Cell Distribution Width 15.6 % (11.8-14.3); White Blood Cell 17.1 10^3/uL (4.4-10.8)
[2017-11-14 05:02] LABS: Albumin 2.8 g/dL (3.4-5.0); BUN/Creatinine Ratio 31.4; Bilirubin, Total 10.7 mg/dL (0.2-1.0); Magnesium 1.9 mg/dL (1.6-2.6); Phosphorus 5.5 mg/dL (2.5-4.90); Potassium 3.7 mmol/L (3.5-5.1); Pre Albumin 15.8 mg/dL (20.0-40.0); Total Protein 7.1 g/dL (6.4-8.2)
[2017-11-14] MEDS: InsuLIN REG 1unit/0.01ml Soln (100units/ml) SC SCH ×3 (06:00→18:00)
[2017-11-14] MEDS: ACETYLCYSTEINE 10 %(100MG/ML) SOL 4ML NEB SCH ×2 (06:10→14:50)
[2017-11-14] MEDS: ACCU-CHEK COMFORT CURVE STRIP VI SCH ×3 (06:19→18:15)
[2017-11-14] MEDS: METOCLOPRAMIDE HCL 5MG/ml INJ 2ml VIAL IV SCH ×3 (06:19→22:21)
[2017-11-14] MEDS: MEROPENEM 1gm/20ml IVPUSH 20 ML IV SCH ×2 (06:19→18:20)
[2017-11-14] MEDS: PROPRANOLOL HCL 1 MG/ML VIAL IV PRN (07:11)
[2017-11-14] MEDS: DOPamine 1600MCG/ML D5W 250 ML IV SCH (07:45)
[2017-11-14] MEDS ORDERED: POTASSIUM CHL 20MEQ/50ML 50 ML IV ONE (09:15)
[2017-11-14] MEDS: DEXMEDETOMIDINE HCL 400 MCG in D5W 5% 96 ML IV SCH (09:28)
[2017-11-14] MEDS: PANTOPRAZOLE 40 MG/10 ML VIAL IV SCH ×2 (09:39→22:21)
[2017-11-14] MEDS: LEVOFLOXACIN 250MG 50 ML IV SCH (09:39)
[2017-11-14] MEDS: INSULIN DETEMIR(LEVEMIR) 1unit/0.01ml Soln (100units/ml) SC SCH ×2 (10:00→22:00)
[2017-11-14] MEDS: SODIUM CHLOR 0.9% PF (SALINE LOCK) 10ML VIAL IV SCH ×2 (10:00→22:21)
[2017-11-14] MEDS: CHLORHEXIDINE 0.12% ORAL rinse 473ML MT SCH ×2 (10:21→22:21)
[2017-11-14] MEDS: NOREPINEPHRINE 8 MG/250ML KIT 250 ML IV SCH (11:25)
[2017-11-14] MEDS: FUROSEMIDE INJECTION 500 MG in SODIUM CHL 0.9% 450 ML IV SCH (11:51)
[2017-11-14] MEDS ORDERED: ALBUMIN 25% 50 ML IV ONE (14:00)
[2017-11-14 17:19] LABS: BUN/Creatinine Ratio 31.8; Calcium 7.7 mg/dL (8.5-10.1); Potassium 3.6 mmol/L (3.5-5.1)
[2017-11-14] MEDS: SODIUM FERR GLUC 62.5MG/5ML 125 MG in SODIUM CHL 0.9% 100 ML IV SCH (17:46)
[2017-11-14] MEDS: POTASSIUM CHL 20MEQ/50ML 50 ML IV SCH ×2 (18:22→20:15)
[2017-11-14] MEDS ORDERED: TPN PER PHARMACY IV NR ×7 (20:00)
[2017-11-14] MEDS: MORPHINE SULF INJ 2 MG/ML SYRINGE 1ML IV PRN (21:24)
[2017-11-14] MEDS: PROPOFOL 100 ML IV SCH (22:00)
[2017-11-15] VITALS (95 sets, daily range): BP systolic 119–162; BP diastolic 49–83
[2017-11-15] MEDS: ACCU-CHEK COMFORT CURVE STRIP VI SCH ×5 (00:03→23:42)
[2017-11-15] MEDS: fentaNYL Drip 2500mCg/250mlNS 250 ML IV SCH ×2 (01:45→20:44)
[2017-11-15] MEDS: LINEZOLID 600MG/300ML 300 ML IV SCH ×2 (03:00→15:04)
[2017-11-15] MEDS: NICARDIPINE IV SCH ×5 (03:15→21:54)
[2017-11-15] MEDS: NS 0.9% IV SCH ×5 (03:15→21:54)
[2017-11-15 04:48] LABS: Basophils # (auto) 0.1 uL; Basophils % (auto) 0.5 % (0.0-2.0); Eosinophils # (auto) 0.4 uL; Hematocrit 29.2 % (41.0-53.0); Hemoglobin 9.9 g/dL (13.5-17.5); Lymphocytes # (auto) 0.9 uL; Lymphocytes % (auto) 4.8 % (10.0-50.0); Mean Corpuscular Hemoglobin 29.9 pg (28.0-32.0); Mean Corpuscular Hgb Conc. 33.7 g/dL (32.0-36.0); Mean Corpuscular Volume 88.7 fL (80.0-100.0); Monocytes # (auto) 1.8 uL; Monocytes % (auto) 9.8 % (0.0-12.0); Neutrophils # (auto) 15.1 uL; Neutrophils % (auto) 82.9 % (37.0-80.0); Platelet Count (auto) 191 10^3/uL (140-450); Red Cell Distribution Width 15.6 % (11.8-14.3); White Blood Cell 18.3 10^3/uL (4.4-10.8)
[2017-11-15 05:11] LABS: BUN/Creatinine Ratio 31.6; Calcium 8.4 mg/dL (8.5-10.1); Potassium 3.6 mmol/L (3.5-5.1)
[2017-11-15 05:12] LABS: Albumin 2.6 g/dL (3.4-5.0); Magnesium 2.1 mg/dL (1.6-2.6); Phosphorus 3.6 mg/dL (2.5-4.90); Total Protein 7.2 g/dL (6.4-8.2)
[2017-11-15] MEDS: MEROPENEM 1gm/20ml IVPUSH 20 ML IV SCH ×2 (05:32→18:19)
[2017-11-15] MEDS: METOPROLOL TARTRATE 1MG/1ML-5ML VIAL IV SCH ×4 (05:32→23:26)
[2017-11-15] MEDS: METOCLOPRAMIDE HCL 5MG/ml INJ 2ml VIAL IV SCH ×3 (05:33→22:26)
[2017-11-15] MEDS: IPRATROPIUM BROM 0.5 MG/2.5ML INH SOL NEB SCH ×5 (05:39→22:28)
[2017-11-15] MEDS: ACETYLCYSTEINE 10 %(100MG/ML) SOL 4ML NEB SCH ×3 (05:39→22:28)
[2017-11-15] MEDS: InsuLIN REG 1unit/0.01ml Soln (100units/ml) SC SCH ×5 (05:46→23:42)
[2017-11-15] MEDS: DOPamine 1600MCG/ML D5W 250 ML IV SCH (07:32)
[2017-11-15] MEDS: ACETAMINOPHEN 650 mg PER 20 mL UD GT PRN (07:51)
[2017-11-15] MEDS: POTASSIUM CHL 20MEQ/50ML 50 ML IV SCH ×2 (09:05→11:30)
[2017-11-15] MEDS: SODIUM CHLOR 0.9% PF (SALINE LOCK) 10ML VIAL IV SCH ×2 (10:00→22:20)
[2017-11-15] MEDS: LEVOFLOXACIN 250MG 50 ML IV SCH (10:03)
[2017-11-15] MEDS: PANTOPRAZOLE 40 MG/10 ML VIAL IV SCH ×2 (10:03→22:20)
[2017-11-15] MEDS: INSULIN DETEMIR(LEVEMIR) 1unit/0.01ml Soln (100units/ml) SC SCH ×2 (10:08→22:00)
[2017-11-15] MEDS: CHLORHEXIDINE 0.12% ORAL rinse 473ML MT SCH ×2 (10:13→22:20)
[2017-11-15] MEDS: NOREPINEPHRINE 8 MG/250ML KIT 250 ML IV SCH (11:25)
[2017-11-15] MEDS: D5W 5% IV SCH ×2 (11:29→17:00)
[2017-11-15] MEDS: MICAFUNGIN SODIUM IV SCH ×2 (11:29→17:00)
[2017-11-15] MEDS: PROPOFOL 100 ML IV SCH (11:31)
[2017-11-15] MEDS: MORPHINE SULF INJ 2 MG/ML SYRINGE 1ML IV PRN (14:17)
[2017-11-15] MEDS ORDERED: FUROSEMIDE 40 MG/4 ML VIAL IV PRN (15:30)
[2017-11-15] MEDS: SODIUM FERR GLUC 62.5MG/5ML 125 MG in SODIUM CHL 0.9% 100 ML IV SCH (18:19)
[2017-11-15] MEDS ORDERED: TPN PER PHARMACY IV NR ×16 (20:00)
[2017-11-16] VITALS (90 sets, daily range): BP systolic 102–180; BP diastolic 48–87
[2017-11-16] MEDS: fentaNYL Drip 2500mCg/250mlNS 250 ML IV SCH ×2 (01:18→23:19)
[2017-11-16] MEDS: IPRATROPIUM BROM 0.5 MG/2.5ML INH SOL NEB SCH ×6 (01:58→22:26)
[2017-11-16] MEDS: NS 0.9% IV SCH ×4 (03:18→19:30)
[2017-11-16] MEDS: NICARDIPINE IV SCH ×4 (03:18→19:30)
[2017-11-16] MEDS: LINEZOLID 600MG/300ML 300 ML IV SCH ×2 (03:37→15:24)
[2017-11-16] MEDS: MORPHINE SULF INJ 2 MG/ML SYRINGE 1ML IV PRN ×2 (03:41→23:58)
[2017-11-16 04:00] LABS: Basophils # (auto) 0.1 uL; Basophils % (auto) 0.4 % (0.0-2.0); Eosinophils # (auto) 0.4 uL; Eosinophils % (auto) 1.8 % (0.0-7.0); Hematocrit 29.2 % (41.0-53.0); Hemoglobin 9.9 g/dL (13.5-17.5); Lymphocytes # (auto) 0.8 uL; Lymphocytes % (auto) 3.6 % (10.0-50.0); Mean Corpuscular Hgb Conc. 33.8 g/dL (32.0-36.0); Mean Corpuscular Volume 88.8 fL (80.0-100.0); Monocytes # (auto) 1.8 uL; Monocytes % (auto) 8.3 % (0.0-12.0); Neutrophils # (auto) 18.8 uL; Neutrophils % (auto) 85.9 % (37.0-80.0); Platelet Count (auto) 183 10^3/uL (140-450); Red Blood Cells 3.29 10^6/uL (4.5-5.90); Red Cell Distribution Width 15.6 % (11.8-14.3); White Blood Cell 21.9 10^3/uL (4.4-10.8)
[2017-11-16 04:17] LABS: Albumin 2.3 g/dL (3.4-5.0); BUN/Creatinine Ratio 32.1; Calcium 8.3 mg/dL (8.5-10.1); Potassium 3.7 mmol/L (3.5-5.1)
[2017-11-16 04:19] LABS: Bilirubin, Total 11.7 mg/dL (0.2-1.0); Total Protein 6.6 g/dL (6.4-8.2)
[2017-11-16] MEDS: METOPROLOL TARTRATE 1MG/1ML-5ML VIAL IV SCH ×4 (05:22→23:56)
[2017-11-16] MEDS: ACETYLCYSTEINE 10 %(100MG/ML) SOL 4ML NEB SCH ×3 (05:59→22:25)
[2017-11-16] MEDS: METOCLOPRAMIDE HCL 5MG/ml INJ 2ml VIAL IV SCH ×3 (06:06→22:01)
[2017-11-16] MEDS: InsuLIN REG 1unit/0.01ml Soln (100units/ml) SC SCH ×4 (06:06→23:56)
[2017-11-16] MEDS: ACCU-CHEK COMFORT CURVE STRIP VI SCH ×4 (06:06→23:56)
[2017-11-16] MEDS: MEROPENEM 1gm/20ml IVPUSH 20 ML IV SCH ×2 (06:11→17:46)
[2017-11-16] MEDS: DOPamine 1600MCG/ML D5W 250 ML IV SCH (07:45)
[2017-11-16] MEDS: PROPRANOLOL HCL 1 MG/ML VIAL IV PRN (08:24)
[2017-11-16] MEDS: CHLORHEXIDINE 0.12% ORAL rinse 473ML MT SCH ×2 (09:26→22:02)
[2017-11-16] MEDS: LEVOFLOXACIN 250MG 50 ML IV SCH (09:26)
[2017-11-16] MEDS: PANTOPRAZOLE 40 MG/10 ML VIAL IV SCH ×2 (09:26→22:01)
[2017-11-16] MEDS: SODIUM CHLOR 0.9% PF (SALINE LOCK) 10ML VIAL IV SCH ×2 (09:26→22:02)
[2017-11-16] MEDS ORDERED: POTASSIUM CHLORIDE 40 MEQ, LIDOCAINE 1% (LOCAL ANESTH.) 4 ML in SODIUM CHL 0.9% 100 ML IV ONE (09:30)
[2017-11-16] MEDS: POTASSIUM CHL 20MEQ/50ML 50 ML IV SCH ×2 (09:36→11:30)
[2017-11-16] MEDS: INSULIN DETEMIR(LEVEMIR) 1unit/0.01ml Soln (100units/ml) SC SCH ×2 (09:42→22:00)
[2017-11-16 09:48] LABS: Hepatitis B Surface Antibody Negative
[2017-11-16 09:56] LABS: Hepatitis B Surface Antigen Negative (Negative)
[2017-11-16 10:21] LABS: Hepatitis C Antibody Negative (Negative)
[2017-11-16 10:22] LABS: Hepatitis A Total Antibody Positive
[2017-11-16 10:23] LABS: Hepatitis B Core Total AB Negative
[2017-11-16] MEDS: PROPOFOL 100 ML IV SCH ×3 (11:25→22:19)
[2017-11-16] MEDS: NOREPINEPHRINE 8 MG/250ML KIT 250 ML IV SCH (11:25)
[2017-11-16] MEDS ORDERED: ANGIOMAX 250 MG VIAL IV ONE (11:27)
[2017-11-16] MEDS ORDERED: SODIUM CHL 0.9% 50 ML ONE (11:27)
[2017-11-16] MEDS ORDERED: IODIXANOL 320MG/ML 100ML BTL IV ONE (11:28)
[2017-11-16] MEDS ORDERED: LIDOCAINE 2%HCL (LOCAL ANESTH.) INJ 20ML MDV ONE (12:07)
[2017-11-16] MEDS ORDERED: NALOXONE HCL 0.4 MG/ML VIAL ONE (12:07)
[2017-11-16] MEDS ORDERED: FLUMAZENIL 0.1 MG/ML INJ 10ML MDV IV ONE (12:07)
[2017-11-16] MEDS ORDERED: EPINEPHrine HCL 1 MG/1 ML AMP ONE (12:08)
[2017-11-16] MEDS ORDERED: HYDROmorphone HCL 2 MG/ML VL ONE (12:08)
[2017-11-16] MEDS ORDERED: MIDAZOLAM HCL 5 MG/ML-1ML VIAL ONE (12:08)
[2017-11-16] MEDS ORDERED: SODIUM CHLORIDE LOCK 30 ML ONE (12:08)
[2017-11-16] MEDS ORDERED: fentaNYL CITRATE 100 MCG/2 ML VL ONE (12:09)
[2017-11-16] MEDS ORDERED: LIDOCAINE HCL 2% TOP JELLY 5ML TOP ONE (12:09)
[2017-11-16] MEDS ORDERED: BENZOCAINE (DENTAL) 20 % SPRAY 60ML MT ONE (12:09)
[2017-11-16] MEDS ORDERED: diphenhdrAMINE HCL 50 MG/1 ML VL ONE (12:09)
[2017-11-16] MEDS ORDERED: GLYCOPYRROLATE 0.2 MG/ML 1ML VIAL ONE (12:15)
[2017-11-16] MEDS: MICAFUNGIN SODIUM IV SCH (15:30)
[2017-11-16] MEDS: D5W 5% IV SCH (15:30)
[2017-11-16] MEDS: SODIUM FERR GLUC 62.5MG/5ML 125 MG in SODIUM CHL 0.9% 100 ML IV SCH (18:00)
[2017-11-16] MEDS ORDERED: TPN PER PHARMACY IV NR ×8 (20:00)
[2017-11-17] VITALS (88 sets, daily range): BP systolic 104–190; BP diastolic 46–95
[2017-11-17] MEDS: NICARDIPINE IV SCH ×5 (00:54→22:30)
[2017-11-17] MEDS: NS 0.9% IV SCH ×5 (00:54→22:30)
[2017-11-17] MEDS: IPRATROPIUM BROM 0.5 MG/2.5ML INH SOL NEB SCH ×6 (02:11→22:16)
[2017-11-17] MEDS: LINEZOLID 600MG/300ML 300 ML IV SCH ×2 (03:51→14:32)
[2017-11-17 04:11] LABS: Hematocrit 27.5 % (41.0-53.0); Hemoglobin 9.4 g/dL (13.5-17.5); Mean Corpuscular Hemoglobin 30.7 pg (28.0-32.0); Mean Corpuscular Hgb Conc. 34.3 g/dL (32.0-36.0); Mean Corpuscular Volume 89.6 fL (80.0-100.0); Platelet Count (auto) 148 10^3/uL (140-450); Red Blood Cells 3.07 10^6/uL (4.5-5.90); White Blood Cell 17.2 10^3/uL (4.4-10.8)
[2017-11-17 04:34] LABS: Band Neutrophils % (manual) 0; Basophils % (manual) 0 (0.0-2.0); Blast Cells 0; Metamyelocytes % 0; Myelocytes % 0; Promyelocytes % 0; Reactive Lymphocytes 0
[2017-11-17 04:35] LABS: Albumin 2.1 g/dL (3.4-5.0); BUN/Creatinine Ratio 34.6; Bilirubin, Total 9.7 mg/dL (0.2-1.0); Calcium 8.5 mg/dL (8.5-10.1); Magnesium 2.3 mg/dL (1.6-2.6); Phosphorus 3.1 mg/dL (2.5-4.90); Potassium 4.1 mmol/L (3.5-5.1); Pre Albumin 11.4 mg/dL (20.0-40.0); Total Protein 6.6 g/dL (6.4-8.2)
[2017-11-17 05:19] LABS: Eosinophils % (manual) 7 (0-7); Lymphocytes % (manual) 6 (10.0-50.0); Monocytes % (manual) 2 (0-12)
[2017-11-17] MEDS: ACETYLCYSTEINE 10 %(100MG/ML) SOL 4ML NEB SCH ×3 (06:00→22:16)
[2017-11-17] MEDS: METOCLOPRAMIDE HCL 5MG/ml INJ 2ml VIAL IV SCH ×3 (06:28→22:19)
[2017-11-17] MEDS: MEROPENEM 1gm/20ml IVPUSH 20 ML IV SCH ×2 (06:29→18:30)
[2017-11-17] MEDS: ACCU-CHEK COMFORT CURVE STRIP VI SCH ×4 (06:29→23:39)
[2017-11-17] MEDS: InsuLIN REG 1unit/0.01ml Soln (100units/ml) SC SCH ×4 (06:40→23:39)
[2017-11-17] MEDS: METOPROLOL TARTRATE 1MG/1ML-5ML VIAL IV SCH ×4 (06:41→23:40)
[2017-11-17] MEDS ORDERED: BACITRACIN INJ 50000 UNIT VIAL ONE (07:44)
[2017-11-17] MEDS ORDERED: NEOMYCIN-BACITRACIN-POLYM 15GM TOP OINT TOP ONE (07:44)
[2017-11-17] MEDS: DOPamine 1600MCG/ML D5W 250 ML IV SCH (07:45)
[2017-11-17] MEDS: PROPOFOL 100 ML IV SCH ×3 (08:15→21:29)
[2017-11-17 08:50] LABS: INR 1.23 (0.9-1.15); Partial Thromboplastin Time 32.6 sec (22.64-33.71); Prothrombin Time 13.4 sec (9.37-12.3)
[2017-11-17] MEDS ORDERED: VASOPRESSIN IV ONE (09:40)
[2017-11-17] MEDS ORDERED: MIDAZOLAM HCL 1MG/1ML-2 ML VIAL ONE (11:05)
[2017-11-17] MEDS: NOREPINEPHRINE 8 MG/250ML KIT 250 ML IV SCH (11:25)
[2017-11-17] MEDS: INSULIN DETEMIR(LEVEMIR) 1unit/0.01ml Soln (100units/ml) SC SCH ×2 (12:00→22:00)
[2017-11-17] MEDS: CHLORHEXIDINE 0.12% ORAL rinse 473ML MT SCH ×2 (12:25→22:19)
[2017-11-17] MEDS: SODIUM CHLOR 0.9% PF (SALINE LOCK) 10ML VIAL IV SCH ×2 (12:25→22:19)
[2017-11-17] MEDS: PANTOPRAZOLE 40 MG/10 ML VIAL IV SCH ×2 (12:27→22:19)
[2017-11-17] MEDS: LEVOFLOXACIN 250MG 50 ML IV SCH (12:27)
[2017-11-17] MEDS: fentaNYL Drip 2500mCg/250mlNS 250 ML IV SCH (12:45)
[2017-11-17] MEDS ORDERED: D5W 5% 1,000 ML IV ONE (14:30)
[2017-11-17] MEDS: MICAFUNGIN SODIUM IV SCH (15:30)
[2017-11-17] MEDS: D5W 5% IV SCH (15:30)
[2017-11-17] MEDS: SODIUM FERR GLUC 62.5MG/5ML 125 MG in SODIUM CHL 0.9% 100 ML IV SCH (18:45)
[2017-11-17] MEDS ORDERED: [UNRECOGNIZED DRUG - OTHER] IV NR ×9 (20:00)
[2017-11-17] MEDS ORDERED: POTASSIUM ACETATE IV NR ×9 (20:00)
[2017-11-17] MEDS ORDERED: POTASSIUM PHOSPHATE IV NR ×9 (20:00)
[2017-11-18] VITALS (102 sets, daily range): BP systolic 116–185; BP diastolic 48–90
[2017-11-18] MEDS: IPRATROPIUM BROM 0.5 MG/2.5ML INH SOL NEB SCH ×6 (02:13→22:25)
[2017-11-18] MEDS: MORPHINE SULF INJ 2 MG/ML SYRINGE 1ML IV PRN (02:33)
[2017-11-18] MEDS: PROPOFOL 100 ML IV SCH (03:31)
[2017-11-18] MEDS: LINEZOLID 600MG/300ML 300 ML IV SCH ×2 (03:40→14:28)
[2017-11-18] MEDS: NS 0.9% IV SCH ×4 (03:54→20:06)
[2017-11-18] MEDS: NICARDIPINE IV SCH ×4 (03:54→20:06)
[2017-11-18] MEDS: METOPROLOL TARTRATE 1MG/1ML-5ML VIAL IV SCH ×3 (05:16→18:07)
[2017-11-18] MEDS: METOCLOPRAMIDE HCL 5MG/ml INJ 2ml VIAL IV SCH ×3 (05:20→22:00)
[2017-11-18] MEDS: ACETAMINOPHEN 650 mg PER 20 mL UD GT PRN (05:20)
[2017-11-18 05:23] LABS: Basophils # (auto) 0.1 uL; Eosinophils # (auto) 1.5 uL; Eosinophils % (auto) 11.3 % (0.0-7.0); Hematocrit 28.2 % (41.0-53.0); Hemoglobin 9.5 g/dL (13.5-17.5); Lymphocytes % (auto) 7.8 % (10.0-50.0); Mean Corpuscular Hemoglobin 30.1 pg (28.0-32.0); Mean Corpuscular Hgb Conc. 33.6 g/dL (32.0-36.0); Mean Corpuscular Volume 89.8 fL (80.0-100.0); Monocytes # (auto) 1.1 uL; Monocytes % (auto) 8.7 % (0.0-12.0); Neutrophils # (auto) 9.4 uL; Neutrophils % (auto) 71.2 % (37.0-80.0); Platelet Count (auto) 139 10^3/uL (140-450); Red Blood Cells 3.14 10^6/uL (4.5-5.90); Red Cell Distribution Width 16.4 % (11.8-14.3); White Blood Cell 13.1 10^3/uL (4.4-10.8)
[2017-11-18] MEDS: ACCU-CHEK COMFORT CURVE STRIP VI SCH ×3 (05:28→18:00)
[2017-11-18] MEDS: InsuLIN REG 1unit/0.01ml Soln (100units/ml) SC SCH ×3 (05:28→18:00)
[2017-11-18] MEDS: ACETYLCYSTEINE 10 %(100MG/ML) SOL 4ML NEB SCH ×3 (05:46→22:25)
[2017-11-18 05:53] LABS: Potassium 4.3 mmol/L (3.5-5.1)
[2017-11-18 05:54] LABS: Albumin 2.1 g/dL (3.4-5.0); Bilirubin, Total 10.5 mg/dL (0.2-1.0); Calcium 8.3 mg/dL (8.5-10.1); Total Protein 6.6 g/dL (6.4-8.2)
[2017-11-18] MEDS ORDERED: FUROSEMIDE 40 MG/4 ML VIAL IV ONE (06:15)
[2017-11-18] MEDS: MEROPENEM 1gm/20ml IVPUSH 20 ML IV SCH ×2 (06:28→18:11)
[2017-11-18] MEDS: DOPamine 1600MCG/ML D5W 250 ML IV SCH (07:45)
[2017-11-18] MEDS: SODIUM CHLOR 0.9% PF (SALINE LOCK) 10ML VIAL IV SCH ×2 (10:10→22:00)
[2017-11-18] MEDS: CHLORHEXIDINE 0.12% ORAL rinse 473ML MT SCH ×2 (10:13→22:00)
[2017-11-18] MEDS: PANTOPRAZOLE 40 MG/10 ML VIAL IV SCH ×2 (10:14→22:00)
[2017-11-18] MEDS: LEVOFLOXACIN 250MG 50 ML IV SCH (10:14)
[2017-11-18] MEDS ORDERED: HYDROcodone-ACET 5/325MG TAB PO PRN (10:15)
[2017-11-18] MEDS: hydrALAZINE HCL 20 MG/ML VL IV PRN (10:30)
[2017-11-18] MEDS: INSULIN DETEMIR(LEVEMIR) 1unit/0.01ml Soln (100units/ml) SC SCH (10:30)
[2017-11-18] MEDS: NOREPINEPHRINE 8 MG/250ML KIT 250 ML IV SCH (11:25)
[2017-11-18] MEDS ORDERED: MAGNESIUM SULFATE 1GM/100ML 100 ML IV PRN (12:15)
[2017-11-18] MEDS ORDERED: CALCIUM GLUC 4.65meq/50ml D5AE 50 ML IV PRN (12:15)
[2017-11-18] MEDS ORDERED: MAGNESIUM SULFATE 1GM/100ML 100 ML IV ONE ×2 (12:30→12:52)
[2017-11-18] MEDS: PROPRANOLOL HCL 1 MG/ML VIAL IV PRN (13:00)
[2017-11-18] MEDS: DEXMEDETOMIDINE HCL 400 MCG in D5W 5% 96 ML IV SCH (13:05)
[2017-11-18] MEDS: fentaNYL Drip 2500mCg/250mlNS 250 ML IV SCH (14:53)
[2017-11-18] MEDS: D5W 5% IV SCH (15:36)
[2017-11-18] MEDS: MICAFUNGIN SODIUM IV SCH (15:36)
[2017-11-18 16:21] LABS: BUN/Creatinine Ratio 30.2; Potassium 4.4 mmol/L (3.5-5.1)
[2017-11-18] MEDS: hydrALAZINE HCL 25 MG TAB PO SCH (18:20)
[2017-11-18] MEDS: SODIUM FERR GLUC 62.5MG/5ML 125 MG in SODIUM CHL 0.9% 100 ML IV SCH (18:30)
[2017-11-18] MEDS ORDERED: [UNRECOGNIZED DRUG - OTHER] IV NR ×9 (20:00)
[2017-11-18] MEDS ORDERED: POTASSIUM PHOSPHATE IV NR ×9 (20:00)
[2017-11-18] MEDS ORDERED: POTASSIUM ACETATE IV NR ×9 (20:00)
[2017-11-19] VITALS (88 sets, daily range): BP systolic 115–181; BP diastolic 34–94
[2017-11-19] MEDS: NICARDIPINE IV SCH ×5 (01:30→23:06)
[2017-11-19] MEDS: NS 0.9% IV SCH ×5 (01:30→23:06)
[2017-11-19] MEDS: IPRATROPIUM BROM 0.5 MG/2.5ML INH SOL NEB SCH ×6 (02:12→22:00)
[2017-11-19] MEDS: LINEZOLID 600MG/300ML 300 ML IV SCH ×2 (02:59→14:30)
[2017-11-19 04:24] LABS: Basophils # (auto) 0 uL; Basophils % (auto) 0.3 % (0.0-2.0); Eosinophils # (auto) 0.5 uL; Eosinophils % (auto) 4.2 % (0.0-7.0); Hematocrit 24.8 % (41.0-53.0); Hemoglobin 8.5 g/dL (13.5-17.5); Lymphocytes # (auto) 0.7 uL; Lymphocytes % (auto) 6.2 % (10.0-50.0); Mean Corpuscular Hemoglobin 30.5 pg (28.0-32.0); Mean Corpuscular Hgb Conc. 34.3 g/dL (32.0-36.0); Mean Corpuscular Volume 88.8 fL (80.0-100.0); Monocytes % (auto) 8.6 % (0.0-12.0); Neutrophils # (auto) 9.4 uL; Neutrophils % (auto) 80.7 % (37.0-80.0); Nucleated Red Blood Cells % 0.1 %; Platelet Count (auto) 114 10^3/uL (140-450); Red Blood Cells 2.79 10^6/uL (4.5-5.90); White Blood Cell 11.6 10^3/uL (4.4-10.8)
[2017-11-19 04:36] LABS: Albumin 1.8 g/dL (3.4-5.0); Calcium 8.3 mg/dL (8.5-10.1); Magnesium 2.2 mg/dL (1.6-2.6)
[2017-11-19 04:38] LABS: BUN/Creatinine Ratio 33.2
[2017-11-19 04:41] LABS: Bilirubin, Total 11.3 mg/dL (0.2-1.0); Phosphorus 2.6 mg/dL (2.5-4.90); Total Protein 6.1 g/dL (6.4-8.2)
[2017-11-19] MEDS: METOCLOPRAMIDE HCL 5MG/ml INJ 2ml VIAL IV SCH ×3 (06:00→22:00)
[2017-11-19] MEDS: ACCU-CHEK COMFORT CURVE STRIP VI SCH ×4 (06:00→18:08)
[2017-11-19] MEDS: InsuLIN REG 1unit/0.01ml Soln (100units/ml) SC SCH ×4 (06:00→18:30)
[2017-11-19] MEDS: METOPROLOL TARTRATE 1MG/1ML-5ML VIAL IV SCH ×5 (06:00→23:14)
[2017-11-19] MEDS: hydrALAZINE HCL 25 MG TAB PO SCH ×5 (06:00→23:00)
[2017-11-19] MEDS: MEROPENEM 1gm/20ml IVPUSH 20 ML IV SCH ×2 (06:00→18:50)
[2017-11-19] MEDS: ACETYLCYSTEINE 10 %(100MG/ML) SOL 4ML NEB SCH ×3 (06:24→22:00)
[2017-11-19] MEDS: DOPamine 1600MCG/ML D5W 250 ML IV SCH (07:45)
[2017-11-19] MEDS: DEXMEDETOMIDINE HCL 400 MCG in D5W 5% 96 ML IV SCH (10:48)
[2017-11-19] MEDS: SODIUM CHLOR 0.9% PF (SALINE LOCK) 10ML VIAL IV SCH ×2 (10:48→21:39)
[2017-11-19] MEDS: CHLORHEXIDINE 0.12% ORAL rinse 473ML MT SCH ×2 (10:48→21:39)
[2017-11-19] MEDS ORDERED: PROPOFOL 100 ML IV SCH (11:25)
[2017-11-19] MEDS ORDERED: OSELTAMIVIR 75 MG CAP PO ONE (12:30)
[2017-11-19] MEDS: PANTOPRAZOLE 40 MG/10 ML VIAL IV SCH ×2 (12:37→21:39)
[2017-11-19] MEDS: MICAFUNGIN SODIUM IV SCH (15:55)
[2017-11-19] MEDS: fentaNYL Drip 2500mCg/250mlNS 250 ML IV SCH (15:55)
[2017-11-19] MEDS: D5W 5% IV SCH (15:55)
[2017-11-19] MEDS: SODIUM FERR GLUC 62.5MG/5ML 125 MG in SODIUM CHL 0.9% 100 ML IV SCH (18:08)
[2017-11-19] MEDS ORDERED: TPN PER PHARMACY IV NR ×9 (20:00)
[2017-11-19] MEDS: MORPHINE SULF INJ 2 MG/ML SYRINGE 1ML IV PRN (20:53)
[2017-11-19] MEDS: PROPRANOLOL HCL 1 MG/ML VIAL IV PRN (21:38)
[2017-11-19] MEDS ORDERED: OSELTAMIVIR 30 MG CAP PO SCH (22:00)
[2017-11-19] MEDS: fentaNYL CITRATE 100 MCG/2 ML VL IV PRN (22:31)
[2017-11-19] MEDS ORDERED: NICARDIPINE 25MG/250ML BAG KIT 250 ML IV ONE (23:39)
[2017-11-20] VITALS (64 sets, daily range): BP systolic 119–171; BP diastolic 36–100
[2017-11-20] MEDS: fentaNYL Drip 2500mCg/250mlNS 250 ML IV SCH (00:45)
[2017-11-20] MEDS: IPRATROPIUM BROM 0.5 MG/2.5ML INH SOL NEB SCH ×6 (02:16→22:14)
[2017-11-20 03:52] LABS: Basophils # (auto) 0 uL; Basophils % (auto) 0.3 % (0.0-2.0); Eosinophils # (auto) 0.4 uL; Eosinophils % (auto) 2.8 % (0.0-7.0); Hematocrit 28.7 % (41.0-53.0); Hemoglobin 9.9 g/dL (13.5-17.5); Lymphocytes % (auto) 6.8 % (10.0-50.0); Mean Corpuscular Hemoglobin 30.4 pg (28.0-32.0); Mean Corpuscular Hgb Conc. 34.3 g/dL (32.0-36.0); Mean Corpuscular Volume 88.7 fL (80.0-100.0); Monocytes # (auto) 1.4 uL; Neutrophils # (auto) 12.2 uL; Neutrophils % (auto) 81.1 % (37.0-80.0); Platelet Count (auto) 124 10^3/uL (140-450); Red Blood Cells 3.24 10^6/uL (4.5-5.90); Red Cell Distribution Width 15.7 % (11.8-14.3); White Blood Cell 15.1 10^3/uL (4.4-10.8)
[2017-11-20] MEDS: LINEZOLID 600MG/300ML 300 ML IV SCH ×2 (03:58→15:12)
[2017-11-20 04:06] LABS: Albumin 2.1 g/dL (3.4-5.0); BUN/Creatinine Ratio 31.5; Bilirubin, Total 12.5 mg/dL (0.2-1.0); Calcium 8.3 mg/dL (8.5-10.1); Magnesium 2.3 mg/dL (1.6-2.6); Phosphorus 2.1 mg/dL (2.5-4.90); Potassium 3.8 mmol/L (3.5-5.1); Total Protein 6.8 g/dL (6.4-8.2)
[2017-11-20] MEDS: NICARDIPINE IV SCH ×4 (04:30→20:42)
[2017-11-20] MEDS: NS 0.9% IV SCH ×4 (04:30→20:42)
[2017-11-20] MEDS ORDERED: METOCLOPRAMIDE HCL 5MG/ml INJ 2ml VIAL ONE (04:41)
[2017-11-20] MEDS: POTASSIUM CHL 20MEQ/50ML 50 ML IV PRN (04:42)
[2017-11-20] MEDS: ACCU-CHEK COMFORT CURVE STRIP VI SCH ×4 (05:34→18:19)
[2017-11-20] MEDS: InsuLIN REG 1unit/0.01ml Soln (100units/ml) SC SCH ×4 (05:34→18:19)
[2017-11-20] MEDS: hydrALAZINE HCL 25 MG TAB PO SCH ×3 (05:35→18:34)
[2017-11-20] MEDS: METOCLOPRAMIDE HCL 5MG/ml INJ 2ml VIAL IV SCH ×3 (05:35→21:56)
[2017-11-20] MEDS: METOPROLOL TARTRATE 1MG/1ML-5ML VIAL IV SCH (05:35)
[2017-11-20] MEDS: MEROPENEM 1gm/20ml IVPUSH 20 ML IV SCH ×2 (05:36→18:34)
[2017-11-20] MEDS: ACETYLCYSTEINE 10 %(100MG/ML) SOL 4ML NEB SCH ×3 (05:55→22:14)
[2017-11-20] MEDS ORDERED: FUROSEMIDE 40 MG/4 ML VIAL IV ONE (08:00)
[2017-11-20] MEDS: LORazepam 2MG/ML-1ML VIAL IV PRN (08:22)
[2017-11-20] MEDS: DOPamine 1600MCG/ML D5W 250 ML IV SCH (09:05)
[2017-11-20] MEDS: DEXMEDETOMIDINE HCL 400 MCG in D5W 5% 96 ML IV SCH (09:05)
[2017-11-20] MEDS: CHLORHEXIDINE 0.12% ORAL rinse 473ML MT SCH ×2 (09:17→21:56)
[2017-11-20] MEDS: SODIUM CHLOR 0.9% PF (SALINE LOCK) 10ML VIAL IV SCH ×2 (09:17→21:56)
[2017-11-20] MEDS: PROPRANOLOL HCL 1 MG/ML VIAL IV PRN (09:17)
[2017-11-20] MEDS: PANTOPRAZOLE 40 MG/10 ML VIAL IV SCH ×2 (09:17→21:56)
[2017-11-20] MEDS: METOPROLOL TARTRATE 50 MG TAB PO SCH ×2 (10:06→22:00)
[2017-11-20] MEDS ORDERED: SODIUM PHOSP 20MEQ(15MMOL) IN NS 100 ML IV ONE (11:15)
[2017-11-20] MEDS ORDERED: LIDOCAINE 1% HCL (LOCAL ANESTH.) INJ 20ML MDV ONE (13:50)
[2017-11-20] MEDS: clonazePAM 0.5 MG TAB PO PRN (15:50)
[2017-11-20] MEDS ORDERED: HALOPERIDOL 1 MG TAB PO PRN (17:15)
[2017-11-20] MEDS: D5W 5% IV SCH (17:17)
[2017-11-20] MEDS: MICAFUNGIN SODIUM IV SCH (17:17)
[2017-11-20] MEDS: SODIUM FERR GLUC 62.5MG/5ML 125 MG in SODIUM CHL 0.9% 100 ML IV SCH (18:40)
[2017-11-20] MEDS ORDERED: TPN PER PHARMACY IV NR ×8 (20:00)
[2017-11-21] VITALS (33 sets, daily range): BP systolic 124–166; BP diastolic 55–86
[2017-11-21] MEDS: clonazePAM 0.5 MG TAB PO PRN ×2 (00:07→09:59)
[2017-11-21] MEDS: hydrALAZINE HCL 25 MG TAB PO SCH ×2 (00:07→05:54)
[2017-11-21] MEDS: ACCU-CHEK COMFORT CURVE STRIP VI SCH ×5 (00:07→23:51)
[2017-11-21] MEDS: NICARDIPINE IV SCH ×5 (02:06→23:42)
[2017-11-21] MEDS: NS 0.9% IV SCH ×5 (02:06→23:42)
[2017-11-21] MEDS: IPRATROPIUM BROM 0.5 MG/2.5ML INH SOL NEB SCH ×6 (02:12→22:15)
[2017-11-21] MEDS: LINEZOLID 600MG/300ML 300 ML IV SCH ×3 (03:02→15:37)
[2017-11-21] MEDS: METOCLOPRAMIDE HCL 5MG/ml INJ 2ml VIAL IV SCH ×3 (05:54→21:34)
[2017-11-21] MEDS: MEROPENEM 1gm/20ml IVPUSH 20 ML IV SCH ×2 (05:54→17:45)
[2017-11-21 05:55] LABS: Albumin 2.1 g/dL (3.4-5.0); BUN/Creatinine Ratio 31.1; Bilirubin, Total 11.6 mg/dL (0.2-1.0); Calcium 8.2 mg/dL (8.5-10.1); Magnesium 2.1 mg/dL (1.6-2.6); Potassium 3.8 mmol/L (3.5-5.1); Pre Albumin 14.9 mg/dL (20.0-40.0); Total Protein 6.7 g/dL (6.4-8.2)
[2017-11-21] MEDS: ACETYLCYSTEINE 10 %(100MG/ML) SOL 4ML NEB SCH ×3 (06:00→22:15)
[2017-11-21] MEDS: InsuLIN REG 1unit/0.01ml Soln (100units/ml) SC SCH ×5 (06:20→23:51)
[2017-11-21] MEDS: PROPRANOLOL HCL 1 MG/ML VIAL IV PRN (08:08)
[2017-11-21 08:20] LABS: Basophils # (auto) 0.1 uL; Basophils % (auto) 0.5 % (0.0-2.0); Eosinophils # (auto) 0.5 uL; Eosinophils % (auto) 4.4 % (0.0-7.0); Hematocrit 27.9 % (41.0-53.0); Hemoglobin 9.5 g/dL (13.5-17.5); Lymphocytes # (auto) 1.1 uL; Lymphocytes % (auto) 8.8 % (10.0-50.0); Mean Corpuscular Hemoglobin 30.5 pg (28.0-32.0); Mean Corpuscular Hgb Conc. 34.1 g/dL (32.0-36.0); Mean Corpuscular Volume 89.4 fL (80.0-100.0); Monocytes # (auto) 1.4 uL; Monocytes % (auto) 11.4 % (0.0-12.0); Neutrophils # (auto) 9.2 uL; Neutrophils % (auto) 74.9 % (37.0-80.0); Nucleated Red Blood Cells % 0.1 %; Platelet Count (auto) 108 10^3/uL (140-450); Red Blood Cells 3.12 10^6/uL (4.5-5.90); Red Cell Distribution Width 15.8 % (11.8-14.3); White Blood Cell 12.2 10^3/uL (4.4-10.8)
[2017-11-21] MEDS: DOPamine 1600MCG/ML D5W 250 ML IV SCH (08:52)
[2017-11-21] MEDS: hydrALAZINE HCL 20 MG/ML VL IV PRN ×2 (08:53→14:49)
[2017-11-21] MEDS: PANTOPRAZOLE 40 MG/10 ML VIAL IV SCH ×2 (09:58→21:34)
[2017-11-21] MEDS: METOPROLOL TARTRATE 50 MG TAB PO SCH (09:59)
[2017-11-21] MEDS: SODIUM CHLOR 0.9% PF (SALINE LOCK) 10ML VIAL IV SCH ×2 (09:59→21:34)
[2017-11-21] MEDS: CHLORHEXIDINE 0.12% ORAL rinse 473ML MT SCH ×2 (09:59→21:34)
[2017-11-21] MEDS: cloNIDine 0.3 mg/24hr 7DAY PATCH TD SCH (12:53)
[2017-11-21] MEDS ORDERED: ALBUMIN 25% 50 ML IV ONE (13:45)
[2017-11-21] MEDS: POTASSIUM CHL 20MEQ/50ML 50 ML IV PRN (14:49)
[2017-11-21] MEDS: LORazepam 2MG/ML-1ML VIAL IV PRN ×2 (15:00→23:58)
[2017-11-21] MEDS ORDERED: hydrALAZINE HCL 20 MG/ML VL IV PRN (15:00)
[2017-11-21] MEDS ORDERED: POTASSIUM CHL 20MEQ/50ML 50 ML IV PRN (15:00)
[2017-11-21] MEDS: fentaNYL CITRATE 100 MCG/2 ML VL IV PRN (15:29)
[2017-11-21] MEDS: fentaNYL Drip 2500mCg/250mlNS 250 ML IV SCH (15:37)
[2017-11-21] MEDS: D5W 5% IV SCH (17:31)
[2017-11-21] MEDS: MICAFUNGIN SODIUM IV SCH (17:31)
[2017-11-21] MEDS: FUROSEMIDE 20 MG/2 ML VIAL IV SCH (17:45)
[2017-11-21] MEDS ORDERED: hydrALAZINE HCL 20 MG/ML VL IV ONE (18:00)
[2017-11-21] MEDS: SODIUM FERR GLUC 62.5MG/5ML 125 MG in SODIUM CHL 0.9% 100 ML IV SCH (18:14)
[2017-11-21] MEDS: METOPROLOL TARTRATE 1MG/1ML-5ML VIAL IV SCH ×2 (18:15→23:58)
[2017-11-21 19:17] LABS: BUN/Creatinine Ratio 31.1; Calcium 8.4 mg/dL (8.5-10.1); Potassium 4.3 mmol/L (3.5-5.1)
[2017-11-21] MEDS ORDERED: SODIUM PHOSPHATES IV NR ×10 (20:00)
[2017-11-21] MEDS ORDERED: [UNRECOGNIZED DRUG - OTHER] IV NR ×10 (20:00)
[2017-11-21] MEDS ORDERED: SODIUM ACETATE IV NR ×10 (20:00)
[2017-11-21] MEDS ORDERED: FAT EMULSION30 IV NR ×10 (20:00)
[2017-11-22] VITALS (42 sets, daily range): BP systolic 118–165; BP diastolic 59–89
[2017-11-22] MEDS: IPRATROPIUM BROM 0.5 MG/2.5ML INH SOL NEB SCH ×6 (02:18→22:04)
[2017-11-22] MEDS: LINEZOLID 600MG/300ML 300 ML IV SCH ×2 (03:00→15:00)
[2017-11-22 04:40] LABS: Basophils # (auto) 0.1 uL; Basophils % (auto) 0.6 % (0.0-2.0); Eosinophils # (auto) 0.4 uL; Eosinophils % (auto) 2.7 % (0.0-7.0); Hematocrit 26.7 % (41.0-53.0); Hemoglobin 9.1 g/dL (13.5-17.5); Lymphocytes # (auto) 1.2 uL; Lymphocytes % (auto) 9.3 % (10.0-50.0); Mean Corpuscular Hemoglobin 30.6 pg (28.0-32.0); Mean Corpuscular Hgb Conc. 34.2 g/dL (32.0-36.0); Mean Corpuscular Volume 89.3 fL (80.0-100.0); Monocytes # (auto) 1.9 uL; Monocytes % (auto) 14.1 % (0.0-12.0); Neutrophils # (auto) 9.7 uL; Neutrophils % (auto) 73.3 % (37.0-80.0); Nucleated Red Blood Cells % 0.1 %; Platelet Count (auto) 104 10^3/uL (140-450); Red Blood Cells 2.99 10^6/uL (4.5-5.90); Red Cell Distribution Width 16.2 % (11.8-14.3); White Blood Cell 13.2 10^3/uL (4.4-10.8)
[2017-11-22] MEDS: NS 0.9% IV SCH ×4 (05:06→21:18)
[2017-11-22] MEDS: NICARDIPINE IV SCH ×4 (05:06→21:18)
[2017-11-22 05:29] LABS: Albumin 2.2 g/dL (3.4-5.0); BUN/Creatinine Ratio 33.6; Bilirubin, Total 10.1 mg/dL (0.2-1.0); Calcium 8.4 mg/dL (8.5-10.1); Magnesium 2.1 mg/dL (1.6-2.6); Phosphorus 3.7 mg/dL (2.5-4.90); Potassium 4.1 mmol/L (3.5-5.1); Total Protein 6.7 g/dL (6.4-8.2)
[2017-11-22] MEDS: ACCU-CHEK COMFORT CURVE STRIP VI SCH ×3 (05:44→18:27)
[2017-11-22] MEDS: InsuLIN REG 1unit/0.01ml Soln (100units/ml) SC SCH ×3 (05:44→18:27)
[2017-11-22] MEDS: ACETYLCYSTEINE 10 %(100MG/ML) SOL 4ML NEB SCH ×3 (05:50→22:04)
[2017-11-22] MEDS: METOPROLOL TARTRATE 1MG/1ML-5ML VIAL IV SCH ×3 (06:12→18:27)
[2017-11-22] MEDS: METOCLOPRAMIDE HCL 5MG/ml INJ 2ml VIAL IV SCH ×3 (06:12→21:40)
[2017-11-22] MEDS: MEROPENEM 1gm/20ml IVPUSH 20 ML IV SCH ×2 (06:13→18:27)
[2017-11-22] MEDS: DOPamine 1600MCG/ML D5W 250 ML IV SCH (07:45)
[2017-11-22] MEDS: CHLORHEXIDINE 0.12% ORAL rinse 473ML MT SCH ×2 (10:00→21:40)
[2017-11-22] MEDS: SODIUM CHLOR 0.9% PF (SALINE LOCK) 10ML VIAL IV SCH ×2 (10:00→21:40)
[2017-11-22] MEDS: FUROSEMIDE 20 MG/2 ML VIAL IV SCH ×2 (10:00→21:39)
[2017-11-22] MEDS: PANTOPRAZOLE 40 MG/10 ML VIAL IV SCH ×2 (10:00→21:40)
[2017-11-22] MEDS: fentaNYL Drip 2500mCg/250mlNS 250 ML IV SCH (14:53)
[2017-11-22] MEDS: D5W 5% IV SCH (16:00)
[2017-11-22] MEDS: MICAFUNGIN SODIUM IV SCH (16:00)
[2017-11-22] MEDS: SODIUM FERR GLUC 62.5MG/5ML 125 MG in SODIUM CHL 0.9% 100 ML IV SCH (18:00)
[2017-11-22] MEDS ORDERED: TPN PER PHARMACY IV NR ×9 (20:00)
[2017-11-22] MEDS: clonazePAM 0.5 MG TAB PO PRN (21:06)
[2017-11-23] VITALS (35 sets, daily range): BP systolic 103–159; BP diastolic 52–87
[2017-11-23] MEDS: METOPROLOL TARTRATE 1MG/1ML-5ML VIAL IV SCH ×5 (00:01→23:49)
[2017-11-23] MEDS: ACCU-CHEK COMFORT CURVE STRIP VI SCH ×5 (00:01→23:49)
[2017-11-23] MEDS: IPRATROPIUM BROM 0.5 MG/2.5ML INH SOL NEB SCH ×6 (02:07→22:13)
[2017-11-23] MEDS: NS 0.9% IV SCH ×4 (02:42→20:04)
[2017-11-23] MEDS: NICARDIPINE IV SCH ×4 (02:42→20:04)
[2017-11-23] MEDS: LINEZOLID 600MG/300ML 300 ML IV SCH ×2 (02:54→15:00)
[2017-11-23] MEDS: clonazePAM 0.5 MG TAB PO PRN (03:08)
[2017-11-23 04:24] LABS: Basophils # (auto) 0 uL; Basophils % (auto) 0.3 % (0.0-2.0); Eosinophils # (auto) 0.5 uL; Eosinophils % (auto) 3.5 % (0.0-7.0); Hematocrit 25.6 % (41.0-53.0); Hemoglobin 8.7 g/dL (13.5-17.5); Lymphocytes % (auto) 7.9 % (10.0-50.0); Mean Corpuscular Hemoglobin 30.5 pg (28.0-32.0); Mean Corpuscular Hgb Conc. 33.9 g/dL (32.0-36.0); Mean Corpuscular Volume 89.9 fL (80.0-100.0); Monocytes # (auto) 2.1 uL; Monocytes % (auto) 15.8 % (0.0-12.0); Neutrophils # (auto) 9.6 uL; Neutrophils % (auto) 72.5 % (37.0-80.0); Platelet Count (auto) 106 10^3/uL (140-450); Red Blood Cells 2.85 10^6/uL (4.5-5.90); Red Cell Distribution Width 16.2 % (11.8-14.3); White Blood Cell 13.2 10^3/uL (4.4-10.8)
[2017-11-23] MEDS: fentaNYL CITRATE 100 MCG/2 ML VL IV PRN (05:00)
[2017-11-23 05:16] LABS: Albumin 2.3 g/dL (3.4-5.0); BUN/Creatinine Ratio 31.4; Bilirubin, Total 9.4 mg/dL (0.2-1.0); Calcium 8.3 mg/dL (8.5-10.1); Magnesium 2.1 mg/dL (1.6-2.6); Potassium 3.8 mmol/L (3.5-5.1); Total Protein 6.8 g/dL (6.4-8.2)
[2017-11-23] MEDS: InsuLIN REG 1unit/0.01ml Soln (100units/ml) SC SCH ×5 (05:31→23:55)
[2017-11-23] MEDS: MEROPENEM 1gm/20ml IVPUSH 20 ML IV SCH ×2 (05:34→17:41)
[2017-11-23] MEDS: POTASSIUM CHL 20MEQ/50ML 50 ML IV PRN ×2 (05:35→06:23)
[2017-11-23] MEDS: METOCLOPRAMIDE HCL 5MG/ml INJ 2ml VIAL IV SCH ×3 (05:35→21:47)
[2017-11-23] MEDS: ACETYLCYSTEINE 10 %(100MG/ML) SOL 4ML NEB SCH ×3 (05:38→18:11)
[2017-11-23] MEDS ORDERED: FUROSEMIDE 40 MG/4 ML VIAL IV ONE (06:15)
[2017-11-23] MEDS: DOPamine 1600MCG/ML D5W 250 ML IV SCH (07:45)
[2017-11-23] MEDS: FUROSEMIDE 20 MG/2 ML VIAL IV SCH ×2 (09:57→21:47)
[2017-11-23] MEDS: PANTOPRAZOLE 40 MG/10 ML VIAL IV SCH ×2 (09:57→21:47)
[2017-11-23] MEDS: SODIUM CHLOR 0.9% PF (SALINE LOCK) 10ML VIAL IV SCH ×2 (09:57→21:47)
[2017-11-23] MEDS: CHLORHEXIDINE 0.12% ORAL rinse 473ML MT SCH ×2 (09:58→21:47)
[2017-11-23] MEDS: LORazepam 2MG/ML-1ML VIAL IV PRN (10:34)
[2017-11-23] MEDS: fentaNYL Drip 2500mCg/250mlNS 250 ML IV SCH (14:53)
[2017-11-23] MEDS: D5W 5% IV SCH (15:30)
[2017-11-23] MEDS: MICAFUNGIN SODIUM IV SCH (15:30)
[2017-11-23] MEDS: SODIUM FERR GLUC 62.5MG/5ML 125 MG in SODIUM CHL 0.9% 100 ML IV SCH (17:41)
[2017-11-23] MEDS ORDERED: TPN PER PHARMACY IV NR ×22 (20:00)
[2017-11-24] VITALS (20 sets, daily range): BP systolic 114–155; BP diastolic 56–100
[2017-11-24] MEDS: NS 0.9% IV SCH ×3 (00:18→10:56)
[2017-11-24] MEDS: NICARDIPINE IV SCH ×3 (00:18→10:56)
[2017-11-24] MEDS: IPRATROPIUM BROM 0.5 MG/2.5ML INH SOL NEB SCH ×6 (02:05→22:28)
[2017-11-24] MEDS: LINEZOLID 600MG/300ML 300 ML IV SCH ×2 (03:01→15:21)
[2017-11-24 03:41] LABS: Albumin 2.3 g/dL (3.4-5.0); BUN/Creatinine Ratio 30.6; Bilirubin, Total 9.4 mg/dL (0.2-1.0); Calcium 8.6 mg/dL (8.5-10.1); Magnesium 2.1 mg/dL (1.6-2.6); Phosphorus 2.7 mg/dL (2.5-4.90); Total Protein 7.2 g/dL (6.4-8.2)
[2017-11-24] MEDS: ACCU-CHEK COMFORT CURVE STRIP VI SCH ×3 (05:43→17:17)
[2017-11-24] MEDS: InsuLIN REG 1unit/0.01ml Soln (100units/ml) SC SCH ×3 (05:44→17:17)
[2017-11-24] MEDS: MEROPENEM 1gm/20ml IVPUSH 20 ML IV SCH ×2 (05:58→18:08)
[2017-11-24] MEDS: METOPROLOL TARTRATE 1MG/1ML-5ML VIAL IV SCH ×3 (05:58→18:08)
[2017-11-24] MEDS: METOCLOPRAMIDE HCL 5MG/ml INJ 2ml VIAL IV SCH ×4 (06:00→21:45)
[2017-11-24] MEDS: ACETYLCYSTEINE 10 %(100MG/ML) SOL 4ML NEB SCH ×3 (06:23→22:29)
[2017-11-24] MEDS: DOPamine 1600MCG/ML D5W 250 ML IV SCH (07:45)
[2017-11-24] MEDS: CHLORHEXIDINE 0.12% ORAL rinse 473ML MT SCH ×2 (10:00→21:47)
[2017-11-24] MEDS: PANTOPRAZOLE 40 MG/10 ML VIAL IV SCH ×2 (10:00→21:44)
[2017-11-24] MEDS: SODIUM CHLOR 0.9% PF (SALINE LOCK) 10ML VIAL IV SCH ×2 (10:00→21:45)
[2017-11-24] MEDS: FUROSEMIDE 20 MG/2 ML VIAL IV SCH ×2 (10:00→21:45)
[2017-11-24] MEDS: MORPHINE SULFATE 10 MG/ML INJ 1ML SDV IV PRN (14:20)
[2017-11-24] MEDS: fentaNYL Drip 2500mCg/250mlNS 250 ML IV SCH (14:53)
[2017-11-24] MEDS ORDERED: ACETAMINOPHEN 650 mg PER 20 mL UD GT PRN (15:00)
[2017-11-24] MEDS ORDERED: POTASSIUM CHL 20MEQ/50ML 50 ML IV PRN (15:00)
[2017-11-24] MEDS ORDERED: MAGNESIUM SULFATE 1GM/100ML 100 ML IV PRN (15:00)
[2017-11-24] MEDS ORDERED: CALCIUM GLUC 4.65meq/50ml D5AE 50 ML IV PRN (15:00)
[2017-11-24] MEDS ORDERED: TPN PER PHARMACY 0 ML IV SCH (15:00)
[2017-11-24] MEDS ORDERED: DEXTROSE (50%) 50ML SYRG IV PRN (15:00)
[2017-11-24] MEDS: MICAFUNGIN SODIUM IV SCH (15:21)
[2017-11-24] MEDS: D5W 5% IV SCH (15:21)
[2017-11-24 15:51] LABS: Basophils # (auto) 0.1 uL; Basophils % (auto) 0.4 % (0.0-2.0); Eosinophils # (auto) 0.6 uL; Eosinophils % (auto) 3.9 % (0.0-7.0); Hematocrit 29.6 % (41.0-53.0); Hemoglobin 9.9 g/dL (13.5-17.5); Lymphocytes # (auto) 1.1 uL; Lymphocytes % (auto) 6.7 % (10.0-50.0); Mean Corpuscular Hemoglobin 30.2 pg (28.0-32.0); Mean Corpuscular Hgb Conc. 33.3 g/dL (32.0-36.0); Mean Corpuscular Volume 90.6 fL (80.0-100.0); Monocytes # (auto) 2.5 uL; Monocytes % (auto) 15.5 % (0.0-12.0); Neutrophils # (auto) 11.8 uL; Neutrophils % (auto) 73.5 % (37.0-80.0); Nucleated Red Blood Cells % 0.1 %; Platelet Count (auto) 146 10^3/uL (140-450); Red Blood Cells 3.27 10^6/uL (4.5-5.90); Red Cell Distribution Width 16.3 % (11.8-14.3); White Blood Cell 16.1 10^3/uL (4.4-10.8)
[2017-11-24] MEDS: Boost Glucose Control 8 Ounces PO SCH (18:00)
[2017-11-24] MEDS: SODIUM FERR GLUC 62.5MG/5ML 125 MG in SODIUM CHL 0.9% 100 ML IV SCH (18:00)
[2017-11-24] MEDS: PRO-STAT 64 30ML PO SCH (18:00)
[2017-11-24] MEDS ORDERED: TPN PER PHARMACY IV NR ×11 (20:00)
[2017-11-24] MEDS: clonazePAM 0.5 MG TAB PO PRN (21:46)
[2017-11-25] VITALS (23 sets, daily range): BP systolic 99–147; BP diastolic 56–90
[2017-11-25] MEDS: METOPROLOL TARTRATE 1MG/1ML-5ML VIAL IV SCH ×4 (00:14→17:07)
[2017-11-25] MEDS: InsuLIN REG 1unit/0.01ml Soln (100units/ml) SC SCH ×4 (00:15→16:54)
[2017-11-25] MEDS: ACCU-CHEK COMFORT CURVE STRIP VI SCH ×4 (00:15→16:53)
[2017-11-25] MEDS: IPRATROPIUM BROM 0.5 MG/2.5ML INH SOL NEB SCH ×6 (02:12→22:03)
[2017-11-25] MEDS: LINEZOLID 600MG/300ML 300 ML IV SCH ×2 (03:25→15:00)
[2017-11-25 04:14] LABS: Basophils # (auto) 0.1 uL; Basophils % (auto) 0.6 % (0.0-2.0); Eosinophils # (auto) 0.7 uL; Eosinophils % (auto) 4.5 % (0.0-7.0); Hemoglobin 9.5 g/dL (13.5-17.5); Lymphocytes # (auto) 1.3 uL; Lymphocytes % (auto) 8.5 % (10.0-50.0); Mean Corpuscular Hemoglobin 30.7 pg (28.0-32.0); Mean Corpuscular Volume 90.3 fL (80.0-100.0); Monocytes # (auto) 2.3 uL; Monocytes % (auto) 15.5 % (0.0-12.0); Neutrophils # (auto) 10.5 uL; Neutrophils % (auto) 70.9 % (37.0-80.0); Nucleated Red Blood Cells % 0.1 %; Platelet Count (auto) 145 10^3/uL (140-450); Red Blood Cells 3.11 10^6/uL (4.5-5.90); Red Cell Distribution Width 16.9 % (11.8-14.3); White Blood Cell 14.9 10^3/uL (4.4-10.8)
[2017-11-25 04:25] LABS: Albumin 2.4 g/dL (3.4-5.0); BUN/Creatinine Ratio 32.3; Bilirubin, Total 8.1 mg/dL (0.2-1.0); Calcium 8.6 mg/dL (8.5-10.1); Magnesium 2.2 mg/dL (1.6-2.6); Phosphorus 3.3 mg/dL (2.5-4.90); Potassium 4.2 mmol/L (3.5-5.1); Pre Albumin 17.4 mg/dL (20.0-40.0); Total Protein 7.5 g/dL (6.4-8.2)
[2017-11-25] MEDS: ACETYLCYSTEINE 10 %(100MG/ML) SOL 4ML NEB SCH ×3 (05:44→22:03)
[2017-11-25] MEDS: METOCLOPRAMIDE HCL 5MG/ml INJ 2ml VIAL IV SCH ×2 (06:00→13:41)
[2017-11-25] MEDS: MEROPENEM 1gm/20ml IVPUSH 20 ML IV SCH ×2 (06:26→18:11)
[2017-11-25] MEDS: PRO-STAT 64 30ML PO SCH ×3 (08:00→18:00)
[2017-11-25] MEDS: Boost Glucose Control 8 Ounces PO SCH ×3 (08:00→18:11)
[2017-11-25] MEDS: SODIUM CHLOR 0.9% PF (SALINE LOCK) 10ML VIAL IV SCH ×2 (10:00→21:48)
[2017-11-25] MEDS: CHLORHEXIDINE 0.12% ORAL rinse 473ML MT SCH ×2 (10:00→22:18)
[2017-11-25] MEDS: PANTOPRAZOLE 40 MG/10 ML VIAL IV SCH ×2 (10:00→21:48)
[2017-11-25] MEDS: FUROSEMIDE 20 MG/2 ML VIAL IV SCH ×2 (10:00→22:18)
[2017-11-25] MEDS ORDERED: FUROSEMIDE 20 MG/2 ML VIAL IV ONE (10:00)
[2017-11-25] MEDS: MORPHINE SULFATE 10 MG/ML INJ 1ML SDV IV PRN (10:48)
[2017-11-25] MEDS: fentaNYL Drip 2500mCg/250mlNS 250 ML IV SCH (13:41)
[2017-11-25] MEDS: MICAFUNGIN SODIUM IV SCH (15:39)
[2017-11-25] MEDS: D5W 5% IV SCH (15:39)
[2017-11-25] MEDS: SODIUM FERR GLUC 62.5MG/5ML 125 MG in SODIUM CHL 0.9% 100 ML IV SCH (18:11)
[2017-11-25] MEDS ORDERED: TPN PER PHARMACY IV NR ×12 (20:00)
[2017-11-25] MEDS: VENLAFAXINE HCL 37.5MG TABLET PO SCH (21:48)
[2017-11-26] VITALS (24 sets, daily range): BP systolic 110–150; BP diastolic 61–89
[2017-11-26] MEDS: METOPROLOL TARTRATE 1MG/1ML-5ML VIAL IV SCH ×4 (00:30→18:39)
[2017-11-26] MEDS: ACCU-CHEK COMFORT CURVE STRIP VI SCH ×4 (00:30→18:15)
[2017-11-26] MEDS: InsuLIN REG 1unit/0.01ml Soln (100units/ml) SC SCH ×4 (00:30→18:40)
[2017-11-26] MEDS: IPRATROPIUM BROM 0.5 MG/2.5ML INH SOL NEB SCH ×6 (02:02→21:51)
[2017-11-26] MEDS: LINEZOLID 600MG/300ML 300 ML IV SCH ×2 (03:26→15:05)
[2017-11-26 04:04] LABS: Albumin 2.4 g/dL (3.4-5.0); BUN/Creatinine Ratio 32.1; Calcium 8.8 mg/dL (8.5-10.1); Magnesium 2.1 mg/dL (1.6-2.6); Potassium 4.3 mmol/L (3.5-5.1)
[2017-11-26 04:07] LABS: Bilirubin, Total 8.1 mg/dL (0.2-1.0); Phosphorus 3.7 mg/dL (2.5-4.90); Total Protein 7.5 g/dL (6.4-8.2)
[2017-11-26] MEDS: MEROPENEM 1gm/20ml IVPUSH 20 ML IV SCH (06:13)
[2017-11-26] MEDS: ACETYLCYSTEINE 10 %(100MG/ML) SOL 4ML NEB SCH ×3 (06:47→21:52)
[2017-11-26] MEDS: Boost Glucose Control 8 Ounces PO SCH ×3 (08:00→18:00)
[2017-11-26] MEDS: PRO-STAT 64 30ML PO SCH ×3 (08:30→18:00)
[2017-11-26] MEDS: PANTOPRAZOLE 40 MG/10 ML VIAL IV SCH ×2 (09:52→21:04)
[2017-11-26] MEDS: MEGESTROL ACETATE 20 MG TAB PO SCH ×2 (09:52→21:05)
[2017-11-26] MEDS: FUROSEMIDE 20 MG/2 ML VIAL IV SCH ×2 (09:52→21:03)
[2017-11-26] MEDS: DOCUSATE SOD 100 MG CAP PO SCH ×2 (09:53→21:04)
[2017-11-26] MEDS: CHLORHEXIDINE 0.12% ORAL rinse 473ML MT SCH ×2 (09:53→21:04)
[2017-11-26] MEDS: SODIUM CHLOR 0.9% PF (SALINE LOCK) 10ML VIAL IV SCH ×2 (09:53→21:04)
[2017-11-26] MEDS: VENLAFAXINE HCL 37.5MG TABLET PO SCH ×2 (09:55→21:05)
[2017-11-26] MEDS: fentaNYL Drip 2500mCg/250mlNS 250 ML IV SCH (14:53)
[2017-11-26] MEDS: D5W 5% IV SCH (15:30)
[2017-11-26] MEDS: MICAFUNGIN SODIUM IV SCH (15:30)
[2017-11-26] MEDS: SODIUM FERR GLUC 62.5MG/5ML 125 MG in SODIUM CHL 0.9% 100 ML IV SCH (18:35)
[2017-11-26] MEDS ORDERED: [UNRECOGNIZED DRUG - OTHER] IV NR ×9 (20:00)
[2017-11-26] MEDS ORDERED: SODIUM CHLORIDE IV NR ×9 (20:00)
[2017-11-26] MEDS ORDERED: FAT EMULSION30 IV NR ×9 (20:00)
[2017-11-26] MEDS ORDERED: SODIUM PHOSPHATES IV NR ×9 (20:00)
[2017-11-26] MEDS: DRONABINOL 5 MG PO SCH (21:04)
[2017-11-27] VITALS (26 sets, daily range): BP systolic 116–165; BP diastolic 59–93
[2017-11-27] MEDS: ACCU-CHEK COMFORT CURVE STRIP VI SCH ×4 (01:30→18:00)
[2017-11-27] MEDS: InsuLIN REG 1unit/0.01ml Soln (100units/ml) SC SCH ×4 (01:30→18:00)
[2017-11-27] MEDS: METOPROLOL TARTRATE 1MG/1ML-5ML VIAL IV SCH ×4 (01:30→18:09)
[2017-11-27] MEDS: IPRATROPIUM BROM 0.5 MG/2.5ML INH SOL NEB SCH ×6 (01:57→21:49)
[2017-11-27 04:42] LABS: Basophils # (auto) 0 uL; Basophils % (auto) 0.2 % (0.0-2.0); Eosinophils # (auto) 0.3 uL; Eosinophils % (auto) 2.1 % (0.0-7.0); Hematocrit 25.8 % (41.0-53.0); Hemoglobin 8.6 g/dL (13.5-17.5); Lymphocytes # (auto) 1.3 uL; Lymphocytes % (auto) 9.2 % (10.0-50.0); Mean Corpuscular Hemoglobin 30.5 pg (28.0-32.0); Mean Corpuscular Hgb Conc. 33.4 g/dL (32.0-36.0); Mean Corpuscular Volume 91.3 fL (80.0-100.0); Monocytes # (auto) 1.5 uL; Neutrophils # (auto) 10.6 uL; Neutrophils % (auto) 77.5 % (37.0-80.0); Platelet Count (auto) 189 10^3/uL (140-450); Red Blood Cells 2.83 10^6/uL (4.5-5.90); Red Cell Distribution Width 17.4 % (11.8-14.3); White Blood Cell 13.7 10^3/uL (4.4-10.8)
[2017-11-27 04:59] LABS: Albumin 2.5 g/dL (3.4-5.0); BUN/Creatinine Ratio 36.8; Bilirubin, Total 7.3 mg/dL (0.2-1.0); Calcium 8.4 mg/dL (8.5-10.1); Magnesium 2.2 mg/dL (1.6-2.6); Potassium 4.2 mmol/L (3.5-5.1); Total Protein 7.8 g/dL (6.4-8.2)
[2017-11-27] MEDS: ACETYLCYSTEINE 10 %(100MG/ML) SOL 4ML NEB SCH ×3 (05:50→21:49)
[2017-11-27] MEDS: Boost Glucose Control 8 Ounces PO SCH ×3 (08:00→19:57)
[2017-11-27] MEDS: PRO-STAT 64 30ML PO SCH ×3 (09:00→19:57)
[2017-11-27] MEDS: FUROSEMIDE 20 MG/2 ML VIAL IV SCH (09:45)
[2017-11-27] MEDS: PANTOPRAZOLE 40 MG/10 ML VIAL IV SCH ×2 (09:45→22:17)
[2017-11-27] MEDS: DOCUSATE SOD 100 MG CAP PO SCH ×2 (09:45→22:17)
[2017-11-27] MEDS: MEGESTROL ACETATE 20 MG TAB PO SCH ×2 (09:45→22:17)
[2017-11-27] MEDS: SODIUM CHLOR 0.9% PF (SALINE LOCK) 10ML VIAL IV SCH ×2 (10:00→22:17)
[2017-11-27] MEDS: DRONABINOL 5 MG PO SCH (10:00)
[2017-11-27] MEDS: CHLORHEXIDINE 0.12% ORAL rinse 473ML MT SCH ×2 (10:00→22:18)
[2017-11-27] MEDS: VENLAFAXINE HCL 37.5MG TABLET PO SCH ×2 (10:30→22:17)
[2017-11-27] MEDS ORDERED: FUROSEMIDE 20 MG/2 ML VIAL IV ONE (12:15)
[2017-11-27] MEDS: MICAFUNGIN SODIUM IV SCH (15:33)
[2017-11-27] MEDS: D5W 5% IV SCH (15:33)
[2017-11-27] MEDS: SODIUM FERR GLUC 62.5MG/5ML 125 MG in SODIUM CHL 0.9% 100 ML IV SCH (18:15)
[2017-11-27] MEDS ORDERED: TPN PER PHARMACY IV NR ×11 (20:00)
[2017-11-28] VITALS (24 sets, daily range): BP systolic 140–177; BP diastolic 74–101
[2017-11-28] MEDS: ACCU-CHEK COMFORT CURVE STRIP VI SCH ×4 (00:10→18:00)
[2017-11-28] MEDS: METOPROLOL TARTRATE 1MG/1ML-5ML VIAL IV SCH ×4 (00:11→17:45)
[2017-11-28] MEDS: IPRATROPIUM BROM 0.5 MG/2.5ML INH SOL NEB SCH ×6 (01:58→22:54)
[2017-11-28 03:59] LABS: Basophils # (auto) 0.1 uL; Basophils % (auto) 0.7 % (0.0-2.0); Eosinophils # (auto) 0.3 uL; Eosinophils % (auto) 2.3 % (0.0-7.0); Hematocrit 29.7 % (41.0-53.0); Hemoglobin 9.8 g/dL (13.5-17.5); Lymphocytes # (auto) 1.3 uL; Lymphocytes % (auto) 9.7 % (10.0-50.0); Mean Corpuscular Hemoglobin 29.6 pg (28.0-32.0); Mean Corpuscular Hgb Conc. 32.9 g/dL (32.0-36.0); Monocytes # (auto) 1.6 uL; Monocytes % (auto) 11.7 % (0.0-12.0); Neutrophils % (auto) 75.6 % (37.0-80.0); Platelet Count (auto) 227 10^3/uL (140-450); Red Cell Distribution Width 17.6 % (11.8-14.3); White Blood Cell 13.2 10^3/uL (4.4-10.8)
[2017-11-28 04:15] LABS: Albumin 2.5 g/dL (3.4-5.0); BUN/Creatinine Ratio 40.7; Bilirubin, Total 7.4 mg/dL (0.2-1.0); Calcium 8.4 mg/dL (8.5-10.1); Magnesium 2.1 mg/dL (1.6-2.6); Phosphorus 3.1 mg/dL (2.5-4.90); Potassium 4.4 mmol/L (3.5-5.1)
[2017-11-28] MEDS: InsuLIN REG 1unit/0.01ml Soln (100units/ml) SC SCH ×4 (05:41→18:00)
[2017-11-28] MEDS: ACETYLCYSTEINE 10 %(100MG/ML) SOL 4ML NEB SCH ×3 (06:47→22:54)
[2017-11-28] MEDS: Boost Glucose Control 8 Ounces PO SCH ×3 (08:00→18:00)
[2017-11-28] MEDS: PRO-STAT 64 30ML PO SCH ×3 (08:00→18:00)
[2017-11-28] MEDS ORDERED: [UNRECOGNIZED DRUG - OTHER] IV NR ×11 (09:15)
[2017-11-28] MEDS ORDERED: SODIUM CHLORIDE IV NR ×11 (09:15)
[2017-11-28] MEDS ORDERED: MORPHINE SULFATE 10 MG/ML INJ 1ML SDV IV PRN (09:15)
[2017-11-28] MEDS ORDERED: FAT EMULSION30 IV NR ×11 (09:15)
[2017-11-28] MEDS ORDERED: SODIUM PHOSPHATES IV NR ×11 (09:15)
[2017-11-28] MEDS ORDERED: FUROSEMIDE 20 MG/2 ML VIAL IV SCH (10:00)
[2017-11-28] MEDS: DOCUSATE SOD 100 MG CAP PO SCH ×2 (10:00→22:00)
[2017-11-28] MEDS: CHLORHEXIDINE 0.12% ORAL rinse 473ML MT SCH ×2 (10:00→22:00)
[2017-11-28] MEDS: SODIUM CHLOR 0.9% PF (SALINE LOCK) 10ML VIAL IV SCH ×2 (10:00→22:20)
[2017-11-28] MEDS: MEGESTROL ACETATE 20 MG TAB PO SCH ×2 (10:00→22:00)
[2017-11-28] MEDS: PANTOPRAZOLE 40 MG/10 ML VIAL IV SCH ×2 (10:15→22:20)
[2017-11-28] MEDS: cloNIDine 0.3 mg/24hr 7DAY PATCH TD SCH (10:20)
[2017-11-28] MEDS: BOOST PLUS 8 ounce PO SCH ×3 (12:00→22:00)
[2017-11-28] MEDS ORDERED: TPN PER PHARMACY 0 ML IV SCH (15:00)
[2017-11-28] MEDS: D5W 5% IV SCH (17:00)
[2017-11-28] MEDS: METOCLOPRAMIDE HCL 5MG/ml INJ 2ml VIAL IV SCH ×2 (17:00→22:20)
[2017-11-28] MEDS: MICAFUNGIN SODIUM IV SCH (17:00)
[2017-11-28] MEDS: fentaNYL CITRATE 100 MCG/2 ML VL IV PRN (18:00)
[2017-11-28] MEDS: SODIUM FERR GLUC 62.5MG/5ML 125 MG in SODIUM CHL 0.9% 100 ML IV SCH (19:00)
[2017-11-28] MEDS ORDERED: TPN PER PHARMACY IV NR ×8 (20:00)
[2017-11-29] VITALS (24 sets, daily range): BP systolic 132–167; BP diastolic 74–104
[2017-11-29] MEDS: METOPROLOL TARTRATE 1MG/1ML-5ML VIAL IV SCH ×3 (00:36→11:25)
[2017-11-29] MEDS: IPRATROPIUM BROM 0.5 MG/2.5ML INH SOL NEB SCH ×6 (01:40→22:23)
[2017-11-29] MEDS: METOCLOPRAMIDE HCL 5MG/ml INJ 2ml VIAL IV SCH ×3 (05:40→22:14)
[2017-11-29] MEDS: ACCU-CHEK COMFORT CURVE STRIP VI SCH ×5 (05:48→23:33)
[2017-11-29] MEDS: InsuLIN REG 1unit/0.01ml Soln (100units/ml) SC SCH ×5 (05:49→23:26)
[2017-11-29] MEDS: ACETYLCYSTEINE 10 %(100MG/ML) SOL 4ML NEB SCH ×3 (05:52→18:12)
[2017-11-29] MEDS: BOOST PLUS 8 ounce PO SCH ×4 (06:00→22:00)
[2017-11-29] MEDS ORDERED: TPN PER PHARMACY IV NR ×16 (07:00→20:00)
[2017-11-29] MEDS: Boost Glucose Control 8 Ounces PO SCH ×2 (08:00→11:26)
[2017-11-29] MEDS: PRO-STAT 64 30ML PO SCH ×3 (09:44→17:27)
[2017-11-29] MEDS: CHLORHEXIDINE 0.12% ORAL rinse 473ML MT SCH ×2 (09:45→22:15)
[2017-11-29] MEDS: DOCUSATE SOD 100 MG CAP PO SCH ×2 (09:45→22:00)
[2017-11-29] MEDS: SODIUM CHLOR 0.9% PF (SALINE LOCK) 10ML VIAL IV SCH ×2 (09:45→22:14)
[2017-11-29] MEDS: POTASSIUM CHL 20 Meq TABLET PO SCH (09:46)
[2017-11-29] MEDS: MEGESTROL ACETATE 20 MG TAB PO SCH ×2 (09:48→22:00)
[2017-11-29] MEDS: CITALOPRAM HYDROBR 20 MG TAB PO SCH (09:49)
[2017-11-29] MEDS: PANTOPRAZOLE 40 MG/10 ML VIAL IV SCH ×2 (09:49→22:14)
[2017-11-29] MEDS ORDERED: FUROSEMIDE 40 MG TAB PO SCH (10:00)
[2017-11-29 10:21] LABS: Basophils # (auto) 0 uL; Basophils % (auto) 0.2 % (0.0-2.0); Eosinophils # (auto) 0.1 uL; Eosinophils % (auto) 0.3 % (0.0-7.0); Hematocrit 34.3 % (41.0-53.0); Hemoglobin 11.4 g/dL (13.5-17.5); Mean Corpuscular Hemoglobin 30.2 pg (28.0-32.0); Mean Corpuscular Hgb Conc. 33.3 g/dL (32.0-36.0); Mean Corpuscular Volume 90.7 fL (80.0-100.0); Monocytes # (auto) 2.4 uL; Neutrophils # (auto) 16.7 uL; Neutrophils % (auto) 82.5 % (37.0-80.0); Platelet Count (auto) 279 10^3/uL (140-450); Red Blood Cells 3.79 10^6/uL (4.5-5.90); Red Cell Distribution Width 18.3 % (11.8-14.3); White Blood Cell 20.2 10^3/uL (4.4-10.8)
[2017-11-29 10:40] LABS: Albumin 2.7 g/dL (3.4-5.0); BUN/Creatinine Ratio 33.9; Calcium 8.9 mg/dL (8.5-10.1); Potassium 4.4 mmol/L (3.5-5.1); Total Protein 8.5 g/dL (6.4-8.2)
[2017-11-29] MEDS ORDERED: TESTOSTERONE CYPIONATE 200 MG/ML 1ML VIAL IM ONE (12:00)
[2017-11-29 13:55] LABS: Basophils # (auto) 0.1 uL; Basophils % (auto) 0.4 % (0.0-2.0); Eosinophils # (auto) 0.1 uL; Eosinophils % (auto) 0.3 % (0.0-7.0); Hematocrit 34.2 % (41.0-53.0); Hemoglobin 11.1 g/dL (13.5-17.5); Lymphocytes # (auto) 1.1 uL; Lymphocytes % (auto) 4.9 % (10.0-50.0); Mean Corpuscular Hemoglobin 29.8 pg (28.0-32.0); Mean Corpuscular Hgb Conc. 32.5 g/dL (32.0-36.0); Mean Corpuscular Volume 91.8 fL (80.0-100.0); Monocytes # (auto) 2.6 uL; Monocytes % (auto) 12.1 % (0.0-12.0); Neutrophils # (auto) 17.8 uL; Neutrophils % (auto) 82.3 % (37.0-80.0); Platelet Count (auto) 288 10^3/uL (140-450); Red Blood Cells 3.72 10^6/uL (4.5-5.90); Red Cell Distribution Width 18.3 % (11.8-14.3); White Blood Cell 21.6 10^3/uL (4.4-10.8)
[2017-11-29] MEDS: D5W 5% IV SCH (15:30)
[2017-11-29] MEDS: MICAFUNGIN SODIUM IV SCH (15:30)
[2017-11-29] MEDS: PROPRANOLOL HCL 1 MG/ML VIAL IV PRN ×2 (15:35→19:28)
[2017-11-29] MEDS: FUROSEMIDE 20 MG/2 ML VIAL IV SCH (17:36)
[2017-11-29] MEDS: SODIUM FERR GLUC 62.5MG/5ML 125 MG in SODIUM CHL 0.9% 100 ML IV SCH (17:49)
[2017-11-29] MEDS: METOPROLOL TARTRATE 25 MG TAB PO SCH (22:14)
[2017-11-30] VITALS (21 sets, daily range): BP systolic 123–158; BP diastolic 75–97
[2017-11-30] MEDS: IPRATROPIUM BROM 0.5 MG/2.5ML INH SOL NEB SCH ×6 (02:06→22:01)
[2017-11-30 04:48] LABS: Albumin 2.6 g/dL (3.4-5.0); BUN/Creatinine Ratio 32.2; Bilirubin, Total 9.5 mg/dL (0.2-1.0); Calcium 8.9 mg/dL (8.5-10.1); Phosphorus 3.4 mg/dL (2.5-4.90); Potassium 4.2 mmol/L (3.5-5.1); Total Protein 8.3 g/dL (6.4-8.2)
[2017-11-30] MEDS: ACCU-CHEK COMFORT CURVE STRIP VI SCH ×4 (05:35→23:45)
[2017-11-30] MEDS: FUROSEMIDE 20 MG/2 ML VIAL IV SCH (05:35)
[2017-11-30] MEDS: InsuLIN REG 1unit/0.01ml Soln (100units/ml) SC SCH ×4 (05:35→23:45)
[2017-11-30] MEDS: BOOST PLUS 8 ounce PO SCH ×4 (05:35→22:00)
[2017-11-30] MEDS: METOCLOPRAMIDE HCL 5MG/ml INJ 2ml VIAL IV SCH ×3 (05:35→22:14)
[2017-11-30 06:46] LABS: Hematocrit 32.7 % (41.0-53.0); Mean Corpuscular Hemoglobin 30.5 pg (28.0-32.0); Mean Corpuscular Hgb Conc. 33.5 g/dL (32.0-36.0); Mean Corpuscular Volume 90.9 fL (80.0-100.0); Platelet Count (auto) 273 10^3/uL (140-450); Red Cell Distribution Width 19.3 % (11.8-14.3)
[2017-11-30] MEDS: ACETYLCYSTEINE 10 %(100MG/ML) SOL 4ML NEB SCH ×3 (06:52→22:01)
[2017-11-30 07:07] LABS: Band Neutrophils % (manual) 0; Eosinophils % (manual) 0 (0-7)
[2017-11-30 07:08] LABS: Basophils % (manual) 0 (0.0-2.0); Blast Cells 0; Metamyelocytes % 0; Myelocytes % 0; Promyelocytes % 0; Reactive Lymphocytes 0
[2017-11-30] MEDS: HYDROcodone-ACET 5/325MG TAB PO PRN (07:31)
[2017-11-30 07:59] LABS: Lymphocytes % (manual) 6 (10.0-50.0); Monocytes % (manual) 10 (0-12)
[2017-11-30] MEDS: fentaNYL CITRATE 100 MCG/2 ML VL IV PRN ×3 (08:50→20:58)
[2017-11-30] MEDS ORDERED: IOHEXOL 300 MG/ML 100ML BOTTLE IJ ONE (09:13)
[2017-11-30] MEDS: PRO-STAT 64 30ML PO SCH ×3 (09:27→20:00)
[2017-11-30] MEDS: SODIUM CHLOR 0.9% PF (SALINE LOCK) 10ML VIAL IV SCH ×2 (09:27→22:15)
[2017-11-30] MEDS: MEGESTROL ACETATE 20 MG TAB PO SCH (09:28)
[2017-11-30] MEDS: DOCUSATE SOD 100 MG CAP PO SCH ×2 (09:28→22:14)
[2017-11-30] MEDS: CITALOPRAM HYDROBR 20 MG TAB PO SCH (09:28)
[2017-11-30] MEDS: METOPROLOL TARTRATE 25 MG TAB PO SCH (09:42)
[2017-11-30] MEDS: PANTOPRAZOLE 40 MG/10 ML VIAL IV SCH ×2 (09:42→22:14)
[2017-11-30] MEDS: CHLORHEXIDINE 0.12% ORAL rinse 473ML MT SCH ×2 (09:44→22:15)
[2017-11-30] MEDS: POTASSIUM CHL 20 Meq TABLET PO SCH (09:44)
[2017-11-30] MEDS ORDERED: hydrALAZINE HCL 20 MG/ML VL IV PRN (11:30)
[2017-11-30] MEDS ORDERED: cefTRIAXone 1GM/10ml IVPUSH 10 ML IV ONE (12:00)
[2017-11-30] MEDS ORDERED: FLUCONAZOLE 200MG/100ML 100 ML IV ONE (12:00)
[2017-11-30] MEDS ORDERED: LINEZOLID 600MG TABLET PO SCH (12:15)
[2017-11-30] MEDS: PROPRANOLOL HCL 1 MG/ML VIAL IV PRN (12:18)
[2017-11-30] MEDS ORDERED: METOPROLOL TARTRATE 25 MG TAB PO ONE (13:45)
[2017-11-30] MEDS ORDERED: DAPTOMYCIN IV SCH (16:30)
[2017-11-30] MEDS ORDERED: SODIUM CHL 0.9% IV SCH (16:30)
[2017-11-30] MEDS: MICAFUNGIN SODIUM IV SCH (18:55)
[2017-11-30] MEDS: D5W 5% IV SCH (18:55)
[2017-11-30] MEDS: SODIUM FERR GLUC 62.5MG/5ML 125 MG in SODIUM CHL 0.9% 100 ML IV SCH (20:45)
[2017-11-30] MEDS: MEGESTROL ACET 400MG/10ML ORAL SUSP PO SCH (22:14)
[2017-11-30] MEDS: METOPROLOL TARTRATE 50 MG TAB PO SCH (22:15)
[2017-12-01] VITALS (22 sets, daily range): BP systolic 105–146; BP diastolic 63–90
[2017-12-01] MEDS: IPRATROPIUM BROM 0.5 MG/2.5ML INH SOL NEB SCH ×6 (01:47→22:16)
[2017-12-01 04:14] LABS: Basophils # (auto) 0.1 uL; Basophils % (auto) 0.4 % (0.0-2.0); Eosinophils # (auto) 0.2 uL; Eosinophils % (auto) 1.3 % (0.0-7.0); Hematocrit 31.8 % (41.0-53.0); Hemoglobin 10.6 g/dL (13.5-17.5); Lymphocytes # (auto) 1.6 uL; Lymphocytes % (auto) 9.4 % (10.0-50.0); Mean Corpuscular Hemoglobin 30.4 pg (28.0-32.0); Mean Corpuscular Hgb Conc. 33.3 g/dL (32.0-36.0); Mean Corpuscular Volume 91.2 fL (80.0-100.0); Monocytes # (auto) 2.2 uL; Monocytes % (auto) 12.9 % (0.0-12.0); Neutrophils # (auto) 12.9 uL; Platelet Count (auto) 281 10^3/uL (140-450); Red Blood Cells 3.48 10^6/uL (4.5-5.90)
[2017-12-01 04:47] LABS: Albumin 2.4 g/dL (3.4-5.0); BUN/Creatinine Ratio 33.9; Calcium 8.8 mg/dL (8.5-10.1); Magnesium 2.2 mg/dL (1.6-2.6); Potassium 4.1 mmol/L (3.5-5.1); Total Protein 8.1 g/dL (6.4-8.2)
[2017-12-01] MEDS: ACCU-CHEK COMFORT CURVE STRIP VI SCH ×3 (05:43→17:25)
[2017-12-01] MEDS: METOCLOPRAMIDE HCL 5MG/ml INJ 2ml VIAL IV SCH ×3 (05:43→21:58)
[2017-12-01] MEDS: BOOST PLUS 8 ounce PO SCH ×3 (05:43→22:00)
[2017-12-01] MEDS: InsuLIN REG 1unit/0.01ml Soln (100units/ml) SC SCH ×3 (05:43→17:25)
[2017-12-01] MEDS: ACETYLCYSTEINE 10 %(100MG/ML) SOL 4ML NEB SCH ×3 (06:59→22:17)
[2017-12-01] MEDS: PRO-STAT 64 30ML PO SCH ×3 (08:00→14:15)
[2017-12-01] MEDS: fentaNYL CITRATE 100 MCG/2 ML VL IV PRN ×2 (09:34→21:57)
[2017-12-01] MEDS ORDERED: FLUCONAZOLE 200MG/100ML 100 ML IV SCH (10:00)
[2017-12-01] MEDS: MEGESTROL ACET 400MG/10ML ORAL SUSP PO SCH ×2 (10:00→21:59)
[2017-12-01] MEDS: CHLORHEXIDINE 0.12% ORAL rinse 473ML MT SCH ×2 (10:22→21:59)
[2017-12-01] MEDS: PANTOPRAZOLE 40 MG/10 ML VIAL IV SCH ×2 (10:22→21:58)
[2017-12-01] MEDS: SODIUM CHLOR 0.9% PF (SALINE LOCK) 10ML VIAL IV SCH ×2 (10:22→21:58)
[2017-12-01] MEDS: cefTRIAXone 1GM/10ml IVPUSH 10 ML IV SCH (10:22)
[2017-12-01] MEDS: CITALOPRAM HYDROBR 20 MG TAB PO SCH (10:26)
[2017-12-01] MEDS: POTASSIUM CHL 20 Meq TABLET PO SCH (10:26)
[2017-12-01] MEDS: FUROSEMIDE 40 MG TAB PO SCH (10:26)
[2017-12-01] MEDS: DOCUSATE SOD 100 MG CAP PO SCH ×2 (10:26→21:59)
[2017-12-01] MEDS: METOPROLOL TARTRATE 50 MG TAB PO SCH ×2 (10:27→21:59)
[2017-12-01] MEDS ORDERED: METOPROLOL TARTRATE 25 MG TAB ONE (12:38)
[2017-12-01] MEDS ORDERED: METOPROLOL TARTRATE 25 MG TAB PO ONE (12:45)
[2017-12-01] MEDS ORDERED: DAPTOmycin 500 MG in SODIUM CHL 0.9% 50 ML IV SCH (16:30)
[2017-12-01] MEDS: D5W 5% IV SCH (16:30)
[2017-12-01] MEDS: MICAFUNGIN SODIUM IV SCH (16:30)
[2017-12-01] MEDS: SODIUM FERR GLUC 62.5MG/5ML 125 MG in SODIUM CHL 0.9% 100 ML IV SCH (17:45)
[2017-12-02] VITALS (32 sets, daily range): BP systolic 119–155; BP diastolic 70–95
[2017-12-02] MEDS: ACCU-CHEK COMFORT CURVE STRIP VI SCH ×4 (00:15→17:56)
[2017-12-02] MEDS: IPRATROPIUM BROM 0.5 MG/2.5ML INH SOL NEB SCH ×6 (02:24→22:00)
[2017-12-02 03:57] LABS: Basophils # (auto) 0.1 uL; Basophils % (auto) 0.4 % (0.0-2.0); Eosinophils # (auto) 0.3 uL; Eosinophils % (auto) 1.8 % (0.0-7.0); Hematocrit 30.2 % (41.0-53.0); Hemoglobin 10.4 g/dL (13.5-17.5); Lymphocytes # (auto) 1.6 uL; Lymphocytes % (auto) 11.2 % (10.0-50.0); Mean Corpuscular Hemoglobin 31.2 pg (28.0-32.0); Mean Corpuscular Hgb Conc. 34.4 g/dL (32.0-36.0); Mean Corpuscular Volume 90.7 fL (80.0-100.0); Monocytes # (auto) 1.6 uL; Neutrophils # (auto) 10.8 uL; Neutrophils % (auto) 75.6 % (37.0-80.0); Platelet Count (auto) 296 10^3/uL (140-450); Red Blood Cells 3.33 10^6/uL (4.5-5.90); White Blood Cell 14.3 10^3/uL (4.4-10.8)
[2017-12-02 03:59] LABS: Albumin 2.4 g/dL (3.4-5.0)
[2017-12-02 04:05] LABS: BUN/Creatinine Ratio 30.7; Bilirubin, Total 7.2 mg/dL (0.2-1.0)
[2017-12-02 04:18] LABS: Red Cell Distribution Width 20.7 % (11.8-14.3)
[2017-12-02] MEDS: ACETYLCYSTEINE 10 %(100MG/ML) SOL 4ML NEB SCH ×3 (05:54→22:00)
[2017-12-02] MEDS: METOCLOPRAMIDE HCL 5MG/ml INJ 2ml VIAL IV SCH ×3 (06:00→22:00)
[2017-12-02] MEDS: InsuLIN REG 1unit/0.01ml Soln (100units/ml) SC SCH ×4 (06:00→17:56)
[2017-12-02] MEDS: BOOST PLUS 8 ounce PO SCH ×4 (06:00→22:00)
[2017-12-02] MEDS: PRO-STAT 64 30ML PO SCH ×3 (08:00→18:00)
[2017-12-02] MEDS: PROPRANOLOL HCL 1 MG/ML VIAL IV PRN (08:29)
[2017-12-02] MEDS: DOCUSATE SOD 100 MG CAP PO SCH ×2 (10:00→22:00)
[2017-12-02] MEDS: MEGESTROL ACET 400MG/10ML ORAL SUSP PO SCH ×2 (10:04→22:00)
[2017-12-02] MEDS: PANTOPRAZOLE 40 MG/10 ML VIAL IV SCH ×2 (10:04→22:00)
[2017-12-02] MEDS: cefTRIAXone 1GM/10ml IVPUSH 10 ML IV SCH (10:04)
[2017-12-02] MEDS: POTASSIUM CHL 20 Meq TABLET PO SCH (10:05)
[2017-12-02] MEDS: FUROSEMIDE 40 MG TAB PO SCH (10:05)
[2017-12-02] MEDS: CITALOPRAM HYDROBR 20 MG TAB PO SCH (10:05)
[2017-12-02] MEDS: FLUCONAZOLE 100 MG TAB PO SCH (10:06)
[2017-12-02] MEDS: METOPROLOL TARTRATE 50 MG TAB PO SCH ×3 (10:06→23:29)
[2017-12-02] MEDS: CHLORHEXIDINE 0.12% ORAL rinse 473ML MT SCH ×2 (10:07→22:00)
[2017-12-02] MEDS: SODIUM CHLOR 0.9% PF (SALINE LOCK) 10ML VIAL IV SCH ×2 (10:07→22:00)
[2017-12-02] MEDS: MICAFUNGIN SODIUM IV SCH (15:53)
[2017-12-02] MEDS: D5W 5% IV SCH (15:53)
[2017-12-02] MEDS: SODIUM FERR GLUC 62.5MG/5ML 125 MG in SODIUM CHL 0.9% 100 ML IV SCH (18:46)
[2017-12-03] VITALS (22 sets, daily range): BP systolic 113–148; BP diastolic 68–91
[2017-12-03] MEDS: ACCU-CHEK COMFORT CURVE STRIP VI SCH ×5 (00:10→23:54)
[2017-12-03] MEDS: InsuLIN REG 1unit/0.01ml Soln (100units/ml) SC SCH ×5 (00:11→23:54)
[2017-12-03] MEDS: IPRATROPIUM BROM 0.5 MG/2.5ML INH SOL NEB SCH ×6 (02:00→22:22)
[2017-12-03 04:06] LABS: Basophils # (auto) 0.1 uL; Basophils % (auto) 0.5 % (0.0-2.0); Eosinophils # (auto) 0.3 uL; Eosinophils % (auto) 2.2 % (0.0-7.0); Hematocrit 29.8 % (41.0-53.0); Hemoglobin 10.3 g/dL (13.5-17.5); Lymphocytes # (auto) 1.8 uL; Lymphocytes % (auto) 14.1 % (10.0-50.0); Mean Corpuscular Hemoglobin 31.5 pg (28.0-32.0); Mean Corpuscular Hgb Conc. 34.6 g/dL (32.0-36.0); Mean Corpuscular Volume 91.1 fL (80.0-100.0); Monocytes # (auto) 1.4 uL; Monocytes % (auto) 11.1 % (0.0-12.0); Neutrophils # (auto) 9.3 uL; Neutrophils % (auto) 72.1 % (37.0-80.0); Platelet Count (auto) 309 10^3/uL (140-450); Red Blood Cells 3.27 10^6/uL (4.5-5.90); White Blood Cell 12.9 10^3/uL (4.4-10.8)
[2017-12-03 04:16] LABS: Red Cell Distribution Width 21.4 % (11.8-14.3)
[2017-12-03 04:34] LABS: Albumin 2.4 g/dL (3.4-5.0); BUN/Creatinine Ratio 26.7; Bilirubin, Total 6.5 mg/dL (0.2-1.0); Calcium 8.7 mg/dL (8.5-10.1); Magnesium 2.1 mg/dL (1.6-2.6); Potassium 4.2 mmol/L (3.5-5.1); Total Protein 8.2 g/dL (6.4-8.2)
[2017-12-03] MEDS: METOCLOPRAMIDE HCL 5MG/ml INJ 2ml VIAL IV SCH ×3 (06:23→22:00)
[2017-12-03] MEDS: BOOST PLUS 8 ounce PO SCH ×4 (06:24→22:00)
[2017-12-03] MEDS: ACETYLCYSTEINE 10 %(100MG/ML) SOL 4ML NEB SCH ×3 (06:48→18:54)
[2017-12-03] MEDS: PRO-STAT 64 30ML PO SCH ×3 (08:00→18:00)
[2017-12-03] MEDS: cefTRIAXone 1GM/10ml IVPUSH 10 ML IV SCH (10:07)
[2017-12-03] MEDS: CHLORHEXIDINE 0.12% ORAL rinse 473ML MT SCH ×2 (11:09→22:00)
[2017-12-03] MEDS: SODIUM CHLOR 0.9% PF (SALINE LOCK) 10ML VIAL IV SCH ×2 (11:09→22:00)
[2017-12-03] MEDS: PANTOPRAZOLE 40 MG/10 ML VIAL IV SCH ×2 (11:09→22:00)
[2017-12-03] MEDS: CITALOPRAM HYDROBR 20 MG TAB PO SCH (11:11)
[2017-12-03] MEDS: FUROSEMIDE 40 MG TAB PO SCH (11:11)
[2017-12-03] MEDS: MEGESTROL ACET 400MG/10ML ORAL SUSP PO SCH ×2 (11:11→22:00)
[2017-12-03] MEDS: FLUCONAZOLE 100 MG TAB PO SCH (11:11)
[2017-12-03] MEDS: METOPROLOL TARTRATE 50 MG TAB PO SCH (11:13)
[2017-12-03] MEDS: POTASSIUM CHL 20 Meq TABLET PO SCH (11:13)
[2017-12-03] MEDS: DOCUSATE SOD 100 MG CAP PO SCH ×2 (11:37→22:00)
[2017-12-03] MEDS: D5W 5% IV SCH (15:30)
[2017-12-03] MEDS: MICAFUNGIN SODIUM IV SCH (15:30)
[2017-12-03] MEDS: SODIUM FERR GLUC 62.5MG/5ML 125 MG in SODIUM CHL 0.9% 100 ML IV SCH (18:00)
[2017-12-03] MEDS: clonazePAM 0.5 MG TAB PO PRN (23:54)
[2017-12-04] VITALS (22 sets, daily range): BP systolic 98–155; BP diastolic 60–112
[2017-12-04] MEDS: IPRATROPIUM BROM 0.5 MG/2.5ML INH SOL NEB SCH ×5 (02:19→22:35)
[2017-12-04] MEDS: ACETYLCYSTEINE 10 %(100MG/ML) SOL 4ML NEB SCH ×3 (05:44→22:35)
[2017-12-04] MEDS: BOOST PLUS 8 ounce PO SCH ×4 (05:59→22:30)
[2017-12-04] MEDS: METOCLOPRAMIDE HCL 5MG/ml INJ 2ml VIAL IV SCH ×3 (05:59→22:30)
[2017-12-04] MEDS: ACCU-CHEK COMFORT CURVE STRIP VI SCH ×3 (06:00→18:00)
[2017-12-04] MEDS: InsuLIN REG 1unit/0.01ml Soln (100units/ml) SC SCH ×3 (06:00→18:00)
[2017-12-04] MEDS: PRO-STAT 64 30ML PO SCH ×3 (08:00→18:00)
[2017-12-04] MEDS: DOCUSATE SOD 100 MG CAP PO SCH ×2 (10:00→21:38)
[2017-12-04 10:07] LABS: Basophils # (auto) 0.1 uL; Basophils % (auto) 0.5 % (0.0-2.0); Eosinophils # (auto) 0.2 uL; Eosinophils % (auto) 1.8 % (0.0-7.0); Hematocrit 32.1 % (41.0-53.0); Hemoglobin 10.8 g/dL (13.5-17.5); Lymphocytes # (auto) 1.7 uL; Mean Corpuscular Hemoglobin 30.9 pg (28.0-32.0); Mean Corpuscular Hgb Conc. 33.6 g/dL (32.0-36.0); Mean Corpuscular Volume 91.9 fL (80.0-100.0); Monocytes # (auto) 1.3 uL; Monocytes % (auto) 10.2 % (0.0-12.0); Neutrophils # (auto) 9.2 uL; Neutrophils % (auto) 73.5 % (37.0-80.0); Platelet Count (auto) 332 10^3/uL (140-450); Red Blood Cells 3.49 10^6/uL (4.5-5.90); White Blood Cell 12.5 10^3/uL (4.4-10.8)
[2017-12-04 10:10] LABS: Red Cell Distribution Width 22.7 % (11.8-14.3)
[2017-12-04 10:27] LABS: BUN/Creatinine Ratio 25.4; Potassium 4.6 mmol/L (3.5-5.1)
[2017-12-04] MEDS: MEGESTROL ACET 400MG/10ML ORAL SUSP PO SCH ×2 (11:04→21:38)
[2017-12-04] MEDS: POTASSIUM CHL 20 Meq TABLET PO SCH (11:18)
[2017-12-04] MEDS: METOPROLOL TARTRATE 50 MG TAB PO SCH ×2 (11:18→22:00)
[2017-12-04] MEDS: CITALOPRAM HYDROBR 20 MG TAB PO SCH (11:24)
[2017-12-04] MEDS: FUROSEMIDE 40 MG TAB PO SCH (11:24)
[2017-12-04] MEDS: SODIUM CHLOR 0.9% PF (SALINE LOCK) 10ML VIAL IV SCH ×2 (11:25→21:38)
[2017-12-04] MEDS: PANTOPRAZOLE 40 MG/10 ML VIAL IV SCH ×2 (11:25→21:38)
[2017-12-04] MEDS: CHLORHEXIDINE 0.12% ORAL rinse 473ML MT SCH ×2 (11:25→21:38)
[2017-12-04] MEDS: cefTRIAXone 1GM/10ml IVPUSH 10 ML IV SCH (11:26)
[2017-12-04] MEDS: FLUCONAZOLE 100 MG TAB PO SCH (11:27)
[2017-12-04] MEDS: MICAFUNGIN SODIUM IV SCH (17:12)
[2017-12-04] MEDS: D5W 5% IV SCH (17:12)
[2017-12-04] MEDS: SODIUM FERR GLUC 62.5MG/5ML 125 MG in SODIUM CHL 0.9% 100 ML IV SCH (18:00)
[2017-12-05] VITALS (25 sets, daily range): BP systolic 99–154; BP diastolic 63–96
[2017-12-05] MEDS: IPRATROPIUM BROM 0.5 MG/2.5ML INH SOL NEB SCH ×5 (02:00→22:31)
[2017-12-05] MEDS: HYDROcodone-ACET 5/325MG TAB PO PRN (03:00)
[2017-12-05 04:12] LABS: Basophils # (auto) 0.1 uL; Basophils % (auto) 0.4 % (0.0-2.0); Eosinophils # (auto) 0.3 uL; Eosinophils % (auto) 2.1 % (0.0-7.0); Hematocrit 31.9 % (41.0-53.0); Hemoglobin 10.7 g/dL (13.5-17.5); Lymphocytes # (auto) 1.1 uL; Lymphocytes % (auto) 7.9 % (10.0-50.0); Mean Corpuscular Hemoglobin 31.1 pg (28.0-32.0); Mean Corpuscular Hgb Conc. 33.4 g/dL (32.0-36.0); Mean Corpuscular Volume 93.2 fL (80.0-100.0); Monocytes # (auto) 1.1 uL; Monocytes % (auto) 7.8 % (0.0-12.0); Neutrophils # (auto) 11.4 uL; Neutrophils % (auto) 81.8 % (37.0-80.0); Nucleated Red Blood Cells % 0.1 %; Platelet Count (auto) 305 10^3/uL (140-450); Red Blood Cells 3.43 10^6/uL (4.5-5.90); White Blood Cell 13.9 10^3/uL (4.4-10.8)
[2017-12-05 04:21] LABS: Red Cell Distribution Width 22.8 % (11.8-14.3)
[2017-12-05 04:24] LABS: Albumin 2.5 g/dL (3.4-5.0); BUN/Creatinine Ratio 27.8; Calcium 9.1 mg/dL (8.5-10.1); Potassium 4.4 mmol/L (3.5-5.1)
[2017-12-05 04:27] LABS: Bilirubin, Total 5.5 mg/dL (0.2-1.0); Total Protein 8.7 g/dL (6.4-8.2)
[2017-12-05] MEDS: ACCU-CHEK COMFORT CURVE STRIP VI SCH ×4 (05:43→18:00)
[2017-12-05] MEDS: METOCLOPRAMIDE HCL 5MG/ml INJ 2ml VIAL IV SCH ×3 (05:43→22:00)
[2017-12-05] MEDS: InsuLIN REG 1unit/0.01ml Soln (100units/ml) SC SCH ×4 (05:44→18:00)
[2017-12-05] MEDS: BOOST PLUS 8 ounce PO SCH ×4 (05:45→22:13)
[2017-12-05] MEDS: PROPRANOLOL HCL 1 MG/ML VIAL IV PRN ×3 (05:45→22:13)
[2017-12-05] MEDS: ACETYLCYSTEINE 10 %(100MG/ML) SOL 4ML NEB SCH ×3 (07:26→22:30)
[2017-12-05] MEDS ORDERED: D5W/SOD CHL 0.45% 1,000 ML IV SCH (09:45)
[2017-12-05] MEDS ORDERED: METOPROLOL TARTRATE 50 MG TAB PO SCH (10:00)
[2017-12-05] MEDS: MEGESTROL ACET 400MG/10ML ORAL SUSP PO SCH ×2 (10:00→22:00)
[2017-12-05] MEDS: POTASSIUM CHL 20 Meq TABLET PO SCH (10:00)
[2017-12-05] MEDS: SODIUM CHLORIDE 0.9% 1,000 ML IV SCH ×2 (10:00→23:32)
[2017-12-05] MEDS: DOCUSATE SOD 100 MG CAP PO SCH ×2 (10:00→22:00)
[2017-12-05] MEDS: METOPROLOL TARTRATE 1MG/1ML-5ML VIAL IV SCH ×2 (10:40→18:00)
[2017-12-05] MEDS: cefTRIAXone 1GM/10ml IVPUSH 10 ML IV SCH (10:41)
[2017-12-05] MEDS: PANTOPRAZOLE 40 MG/10 ML VIAL IV SCH ×2 (10:42→22:12)
[2017-12-05] MEDS: FLUCONAZOLE 100 MG TAB PO SCH (10:42)
[2017-12-05] MEDS: FUROSEMIDE 40 MG TAB PO SCH (10:43)
[2017-12-05] MEDS: CITALOPRAM HYDROBR 20 MG TAB PO SCH (10:46)
[2017-12-05] MEDS: SODIUM CHLOR 0.9% PF (SALINE LOCK) 10ML VIAL IV SCH ×2 (10:47→22:13)
[2017-12-05] MEDS: CHLORHEXIDINE 0.12% ORAL rinse 473ML MT SCH ×2 (10:58→22:13)
[2017-12-05] MEDS ORDERED: cloNIDine 0.3 mg/24hr 7DAY PATCH TD SCH (11:00)
[2017-12-05] MEDS ORDERED: POTASSIUM CHL 20 Meq TABLET PO PRN (14:00)
[2017-12-05] MEDS ORDERED: HYDROcodone-ACET 5/325MG TAB PO PRN (14:00)
[2017-12-05] MEDS ORDERED: METOPROLOL TARTRATE 1MG/1ML-5ML VIAL IV ONE (14:00)
[2017-12-05] MEDS ORDERED: MORPHINE SULF INJ 2 MG/ML SYRINGE 1ML IV PRN (14:15)
[2017-12-05] MEDS ORDERED: ALBUMIN 25% 50 ML IV ONE (15:15)
[2017-12-05] MEDS: MICAFUNGIN SODIUM IV SCH (16:42)
[2017-12-05] MEDS: D5W 5% IV SCH (16:42)
[2017-12-05] MEDS: SODIUM FERR GLUC 62.5MG/5ML 125 MG in SODIUM CHL 0.9% 100 ML IV SCH (19:00)
[2017-12-06] VITALS (32 sets, daily range): BP systolic 120–161; BP diastolic 62–107
[2017-12-06] MEDS: ACCU-CHEK COMFORT CURVE STRIP VI SCH ×4 (00:20→17:36)
[2017-12-06] MEDS: fentaNYL CITRATE 100 MCG/2 ML VL IV PRN ×3 (00:20→20:25)
[2017-12-06] MEDS: InsuLIN REG 1unit/0.01ml Soln (100units/ml) SC SCH ×4 (00:20→17:36)
[2017-12-06] MEDS: METOPROLOL TARTRATE 1MG/1ML-5ML VIAL IV SCH ×4 (00:20→17:49)
[2017-12-06] MEDS: IPRATROPIUM BROM 0.5 MG/2.5ML INH SOL NEB SCH ×5 (02:00→19:10)
[2017-12-06 05:50] LABS: Basophils # (auto) 0.2 uL; Basophils % (auto) 1.3 % (0.0-2.0); Eosinophils # (auto) 0.2 uL; Eosinophils % (auto) 1.5 % (0.0-7.0); Hematocrit 31.1 % (41.0-53.0); Hemoglobin 10.3 g/dL (13.5-17.5); Lymphocytes # (auto) 1.4 uL; Lymphocytes % (auto) 10.4 % (10.0-50.0); Mean Corpuscular Hemoglobin 31.2 pg (28.0-32.0); Mean Corpuscular Hgb Conc. 33.2 g/dL (32.0-36.0); Mean Corpuscular Volume 93.9 fL (80.0-100.0); Monocytes # (auto) 1.1 uL; Monocytes % (auto) 7.9 % (0.0-12.0); Neutrophils # (auto) 10.6 uL; Neutrophils % (auto) 78.9 % (37.0-80.0); Nucleated Red Blood Cells % 0.1 %; Platelet Count (auto) 296 10^3/uL (140-450); Red Blood Cells 3.31 10^6/uL (4.5-5.90); White Blood Cell 13.4 10^3/uL (4.4-10.8)
[2017-12-06] MEDS: ACETYLCYSTEINE 10 %(100MG/ML) SOL 4ML NEB SCH ×2 (05:51→13:51)
[2017-12-06 05:53] LABS: Red Cell Distribution Width 22.6 % (11.8-14.3)
[2017-12-06] MEDS: METOCLOPRAMIDE HCL 5MG/ml INJ 2ml VIAL IV SCH ×2 (06:00→13:41)
[2017-12-06 06:17] LABS: Albumin 2.8 g/dL (3.4-5.0); BUN/Creatinine Ratio 24.8; Bilirubin, Total 5.4 mg/dL (0.2-1.0); Calcium 8.7 mg/dL (8.5-10.1); Potassium 3.9 mmol/L (3.5-5.1); Total Protein 8.7 g/dL (6.4-8.2)
[2017-12-06] MEDS: BOOST PLUS 8 ounce PO SCH ×3 (06:18→17:37)
[2017-12-06] MEDS: cefTRIAXone 1GM/10ml IVPUSH 10 ML IV SCH (08:40)
[2017-12-06] MEDS: SODIUM CHLOR 0.9% PF (SALINE LOCK) 10ML VIAL IV SCH (09:36)
[2017-12-06] MEDS: FLUCONAZOLE 100 MG TAB PO SCH (09:36)
[2017-12-06] MEDS: MEGESTROL ACET 400MG/10ML ORAL SUSP PO SCH (09:36)
[2017-12-06] MEDS: PANTOPRAZOLE 40 MG/10 ML VIAL IV SCH (09:36)
[2017-12-06] MEDS: CHLORHEXIDINE 0.12% ORAL rinse 473ML MT SCH (09:36)
[2017-12-06] MEDS: CITALOPRAM HYDROBR 20 MG TAB PO SCH (09:36)
[2017-12-06] MEDS: DOCUSATE SOD 100 MG CAP PO SCH (09:38)
[2017-12-06] MEDS: SODIUM CHLORIDE 0.9% 1,000 ML IV SCH (12:40)
[2017-12-06] MEDS: MICAFUNGIN SODIUM IV SCH (15:47)
[2017-12-06] MEDS: D5W 5% IV SCH (15:47)
[2017-12-06] MEDS: SODIUM FERR GLUC 62.5MG/5ML 125 MG in SODIUM CHL 0.9% 100 ML IV SCH (17:35)
== END 2017-12-06 20:54 | disposition short-term general hospital (02) | DRG 4 ==
LOC: ER 03:51 → EDBD 03:51 → TELE 03:52 → TELE-CENTR 14:56 → ICU WEST 10-21 22:30
PROVIDERS: ADMIT Internal Medicine; ATTEND Specialist
PROC: 4A023N8 Measurement of Cardiac Sampling and Pressure, Bilateral, Percutaneous Approach (ICD-10-PCS; principal; 2017-10-16)
PROC: B2161ZZ Fluoroscopy of Right and Left Heart using Low Osmolar Contrast (ICD-10-PCS; 2017-10-16)
PROC: B2111ZZ Fluoroscopy of Multiple Coronary Arteries using Low Osmolar Contrast (ICD-10-PCS; 2017-10-16)
PROC: 021309W Bypass Coronary Artery, Four or More Arteries from Aorta with Autologous Venous Tissue, Open Approach (ICD-10-PCS; 2017-10-22)
PROC: 02RF08Z Replacement of Aortic Valve with Zooplastic Tissue, Open Approach (ICD-10-PCS; 2017-10-22)
PROC: 06BQ0ZZ Excision of Left Saphenous Vein, Open Approach (ICD-10-PCS; 2017-10-22)
PROC: 06BP0ZZ Excision of Right Saphenous Vein, Open Approach (ICD-10-PCS; 2017-10-22)
PROC: 5A1955Z Respiratory Ventilation, Greater than 96 Consecutive Hours (ICD-10-PCS; 2017-10-22)
PROC: 0BH17EZ Insertion of Endotracheal Airway into Trachea, Via Natural or Artificial Opening (ICD-10-PCS; 2017-10-22)
PROC: 30233L1 Transfusion of Nonautologous Fresh Plasma into Peripheral Vein, Percutaneous Approach (ICD-10-PCS; 2017-10-22)
PROC: 30233N1 Transfusion of Nonautologous Red Blood Cells into Peripheral Vein, Percutaneous Approach (ICD-10-PCS; 2017-10-22)
PROC: 30233R1 Transfusion of Nonautologous Platelets into Peripheral Vein, Percutaneous Approach (ICD-10-PCS; 2017-10-22)
PROC: 30233K1 Transfusion of Nonautologous Frozen Plasma into Peripheral Vein, Percutaneous Approach (ICD-10-PCS; 2017-10-22)
PROC: 02HV33Z Insertion of Infusion Device into Superior Vena Cava, Percutaneous Approach (ICD-10-PCS; 2017-10-27)
PROC: 3E0336Z Introduction of Nutritional Substance into Peripheral Vein, Percutaneous Approach (ICD-10-PCS; 2017-11-11)
PROC: 0W993ZZ Drainage of Right Pleural Cavity, Percutaneous Approach (ICD-10-PCS; 2017-11-11)
PROC: 0B110F4 Bypass Trachea to Cutaneous with Tracheostomy Device, Open Approach (ICD-10-PCS; 2017-11-12)
PROC: B246ZZ4 Ultrasonography of Right and Left Heart, Transesophageal (ICD-10-PCS; 2017-11-13)
PROC: 0B9B8ZZ Drainage of Left Lower Lobe Bronchus, Via Natural or Artificial Opening Endoscopic (ICD-10-PCS; 2017-11-17)
PROC: 0B988ZZ Drainage of Left Upper Lobe Bronchus, Via Natural or Artificial Opening Endoscopic (ICD-10-PCS; 2017-11-17)
PROC: 0BB78ZX Excision of Left Main Bronchus, Via Natural or Artificial Opening Endoscopic, Diagnostic (ICD-10-PCS; 2017-11-17)
PROC: 5A1221Z Performance of Cardiac Output, Continuous (ICD-10-PCS; 2017-11-22)
DX: I21.4 Non-ST elevation (NSTEMI) myocardial infarction (principal); N17.0 Acute kidney failure with tubular necrosis; R57.0 Cardiogenic shock; A41.9 Sepsis, unspecified organism; E43 Unspecified severe protein-calorie malnutrition; G93.1 Anoxic brain damage, not elsewhere classified; J96.21 Acute and chronic respiratory failure with hypoxia; J18.9 Pneumonia, unspecified organism; I35.2 Nonrheumatic aortic (valve) stenosis with insufficiency; T81.4XXA Infection following a procedure, initial encounter; E11.22 Type 2 diabetes mellitus with diabetic chronic kidney disease; E11.69 Type 2 diabetes mellitus with other specified complication; E78.5 Hyperlipidemia, unspecified; E87.0 Hyperosmolality and hypernatremia; F32.9 Major depressive disorder, single episode, unspecified; F41.9 Anxiety disorder, unspecified; I13.0 Hypertensive heart and chronic kidney disease with heart failure and stage 1 through stage 4 chronic kidney disease, or unspecified chronic kidney disease; I50.9 Heart failure, unspecified; I25.10 Atherosclerotic heart disease of native coronary artery without angina pectoris; I34.0 Nonrheumatic mitral (valve) insufficiency; I35.0 Nonrheumatic aortic (valve) stenosis; I42.0 Dilated cardiomyopathy; I48.91 Unspecified atrial fibrillation; T50.8X5A Adverse effect of diagnostic agents, initial encounter; R17 Unspecified jaundice; N18.9 Chronic kidney disease, unspecified; K29.60 Other gastritis without bleeding; K21.9 Gastro-esophageal reflux disease without esophagitis; D64.9 Anemia, unspecified; I43 Cardiomyopathy in diseases classified elsewhere; D68.59 Other primary thrombophilia; D69.6 Thrombocytopenia, unspecified; Z82.49 Family history of ischemic heart disease and other diseases of the circulatory system; I25.2 Old myocardial infarction; Z95.1 Presence of aortocoronary bypass graft; Z99.11 Dependence on respirator [ventilator] status; Z68.21 Body mass index [BMI] 21.0-21.9, adult
CPT/HCPCS: 10030; 32555; 36415; 36569; 36600; 70450; 71010; 71045; 71046; 71250; 73660; 74018; 76604; 76705; 76775; 76942; 80048; 80053; 80061; 80307; 81001; 82040; 82150; 82248; 82270; 82550; 82570; 82805; 82962; 83036; 83540; 83550; 83690; 83735; 83880; 83986; 84100; 84132; 84300; 84443; 84478; 84484; 84550; 84560; 85007; 85014; 85018; 85025; 85027; 85576; 85610; 85652; 85730; 86606; 86635; 86704; 86706; 86708; 86803; 86850; 86900; 86901; 86920; 87040; 87070; 87075; 87077; 87081; 87086; 87186; 87205; 87340; 87493; 88341; 89051; 92610; 93005; 93306; 93312; 93313; 93458; 93886; 93926; 93970; 93971; 94002; 94003; 94640; 96374; 96379; 97110; 97116; 97163; 97530; 99152; 99291; A4565; C1751; C1768; C9113; G9035; J0153; J0171; J0610; J0690; J1071; J1100; J1450; J1642; J1644; J1815; J1956; J2001; J2185; J2248; J2250; J2440; J2543; J2704; J2720; J3010; J3430; J3465; J3490; J7060; J7131; Q9967